=== PATIENT | female | born 1950 | race Caucasian/White ===

== ENCOUNTER 2020-07-21 10:09 | Outpatient (REF) | payer MEDICARE, SELFPAY ==
[2020-07-21 11:34] LABS: Hematocrit 45.2 % (37-47); Hemoglobin 14.5 g/dl (12.0-16.0); Mean Corpuscular HGB Conc 32.1 g/dl (31.0-35.0); Mean Corpuscular Hemoglobin 30.1 pg (27.0-33.0); Mean Corpuscular Volume 93.8 fL (80-98); Mean Platelet Volume 11.3 fL (9.4-12.3); Platelet Count 325 X10*3/uL (160-400); Red Blood Count 4.82 X10*6/uL (4.20-5.50); Red Cell Distribution Width 13.5 % (11.0-16.0); White Blood Count 6.8 X10*3/uL (4.8-10.8)
[2020-07-21 11:44] LABS: Glucose Urine UA NEG (NEG); Leukocyte Esterase Urine NEG (NEG); Nitrite Urine NEG (NEG); PH 5.5 (5.0-8.0); Specific Gravity - Urine <= 1.005 (1.005-1.025); Urine Blood NEG (NEG); Urine Ketones NEG (NEG); Urine Protein NEG (NEG-TRACE)
[2020-07-21 11:46] LABS: Appearance Urine CLEAR; Color Urine STRAW
[2020-07-21 11:55] LABS: Alanine Aminotransferase 10 U/L (0-31); Albumin Level 4.6 g/dL (3.5-5.0); Alkaline Phosphatase 71 U/L (39-117); Anion Gap 12 (12-20); Aspartate Amino Transferase 18 U/L (5-31); Bilirubin Total 0.4 mg/dL (0.0-1.0); Blood Urea Nitrogen 12 mg/dL (9-16); Calcium 9.3 mg/dL (8.4-10.2); Carbon Dioxide 28 mmol/L (22-29); Chloride 102 mmol/L (96-108); Cholesterol 374 mg/dL; Creatinine Clr Calc Pharmacy 62.4; Estimated Glomerular Filt Rate > 60; Glucose Fasting 94 mg/dL (60-99); HDL Cholesterol 72 mg/dL; LDL Cholesterol Calculated 276 mg/dl; Potassium 4.1 mmol/l (3.3-5.1); Sodium 138 mmol/L (135-145); Total Protein 7.3 g/dL (6.5-8.0); Triglycerides 134 mg/dL
[2020-07-21 11:58] LABS: RBC Urine 0-2 /HPF (0); WBC Urine 0-2 /HPF (0-4)
[2020-07-21 12:18] LABS: TSH reflex Free T4 25.35 mIU/mL (0.32-4.0)
[2020-07-21 13:07] LABS: Free T4 (Free Thyroxine) < 0.40 ng/dL (0.71-1.85)
== END 2020-07-21 10:10 | disposition home or self-care (01) ==
LOC: HO.HMGCLDS 10:09
PROVIDERS: PCP Internal Medicine; Visit Provider Internal Medicine
DX: Z00.00 Encounter for general adult medical examination without abnormal findings (principal); J44.9 Chronic obstructive pulmonary disease, unspecified; Z90.710 Acquired absence of both cervix and uterus
CPT/HCPCS: 36415; 80053; 80061; 81001; 84439; 84443; 85027

== ENCOUNTER 2020-07-28 11:01 | Outpatient (REF) | payer MEDICARE, SELFPAY ==
--- NOTE | 2020-07-28 11:07 | CT_ITS ---
EXAMINATION: CT CHEST WITHOUT CONTRAST CLINICAL INFORMATION: Nicotine dependence. COMPARISON: CT performed 09/27/2014. TECHNIQUE: Multidetector volumetric CT imaging of the chest was done. Axial MIP volume rendering provided. Sagittal and coronal reformatted images were obtained. This CT examination was performed using dose optimization techniques as appropriate, variously including the following: *Automated exposure control *Adjustment of mA and/or kV according to patient size (this includes techniques or standardized protocols for targeted exams where dose is matched to indication/reason for exam; i.e. extremities or head) *Use of iterative reconstruction technique DLP: 140 mGy-cm FINDINGS: LUNGS: The central airways are patent. There is moderate centrilobular emphysema. No consolidation. Minimal bibasilar atelectasis. No pulmonary nodules. No pneumothorax. MEDIASTINUM: Normal heart size. No pericardial effusion. Coronary artery calcifications. No mediastinal lymphadenopathy. PLEURA: There is no pleural effusion. No pleural mass or thickening. AXILLA: No lymphadenopathy. UPPER ABDOMEN: No acute abnormality seen. OSSEOUS STRUCTURES: No acute or suspicious osseous abnormality. Mild degenerative change. CT/CT chest wo con IMPRESSION: Moderate emphysema. No suspicious pulmonary nodules.
== END 2020-07-28 11:02 | disposition home or self-care (01) ==
LOC: HO.CT 11:01
PROVIDERS: PCP Internal Medicine; Visit Provider Internal Medicine
DX: Z12.2 Encounter for screening for malignant neoplasm of respiratory organs (principal); J44.9 Chronic obstructive pulmonary disease, unspecified; F17.200 Nicotine dependence, unspecified, uncomplicated
CPT/HCPCS: 71250

== ENCOUNTER 2020-09-29 08:45 | Outpatient (REF) | payer MEDICARE, SELFPAY ==
[2020-09-29 10:36] LABS: Cholesterol 322 mg/dL; HDL Cholesterol 56 mg/dL; LDL Cholesterol Calculated 238 mg/dl; Triglycerides 140 mg/dL
[2020-09-29 10:50] LABS: TSH reflex Free T4 13.58 uIU/mL (0.32-4.0)
[2020-09-29 12:23] LABS: Free T4 (Free Thyroxine) 0.74 ng/dL (0.71-1.85)
== END 2020-09-29 08:46 | disposition home or self-care (01) ==
LOC: HO.LAB 08:45
PROVIDERS: PCP Internal Medicine; Visit Provider Internal Medicine
DX: Z00.00 Encounter for general adult medical examination without abnormal findings (principal); E78.5 Hyperlipidemia, unspecified; E03.9 Hypothyroidism, unspecified; J44.9 Chronic obstructive pulmonary disease, unspecified; Z78.0 Asymptomatic menopausal state
CPT/HCPCS: 36415; 80061; 84439; 84443

== ENCOUNTER 2020-09-30 08:22 | Outpatient (REF) | payer MEDICARE, SELFPAY ==
--- NOTE | ~2020-09-30 | MM_ITS ---
EXAMINATION: MM SCREENING DIGITAL BREAST TOMOSYNTHESIS, BILATERAL CLINICAL INFORMATION: Screening. Asymptomatic. The lifetime risk of breast cancer based on the Tyrer-Cuzick Model is 6%. COMPARISON: Mammography: 11/16/2014 TECHNIQUE: Digital breast tomosynthesis is performed in both the craniocaudal and mediolateral oblique views along with computer-aided detection (CAD). Synthesized 2D images are generated from the tomosynthesis. FINDINGS: There are scattered areas of fibroglandular density (ACR BI-RADS breast composition Category b). The left breast is unremarkable. There is no interval mass or architectural abnormality. Neither breast shows abnormal calcifications. The axilla and skin contours are unremarkable. There are small intramammary nodes in the posterior upper outer right breast similar to 2015. There is a new nodule mid upper outer right breast with obscured margins measuring approximately 0.7 x 0.6 cm. Patient will be recalled for additional imaging. MM/MM tomosynthesis screening BI IMPRESSION: 1. Right: New nodule with obscured margins 0.7 cm mid upper outer quadrant. 2. Left: No mammographic evidence of malignancy. ASSESSMENT: BI-RADS 0: Incomplete - Need Additional Imaging Evaluation RECOMMENDATION: 1. Additional views of the right breast (3-D spot CC, 3-D spot ML). 2. Targeted ultrasound right breast. 3. Radiology department staff will contact the patient for additional imaging. This patient's information was entered into a reminder system with a target due date for their next mammogram.
--- NOTE | ~2020-09-30 | MM_ITS ---
EXAMINATION: BONE DENSITOMETRY CLINICAL INDICATION: Asymptomatic menopausal state. COMPARISON: This is the patient's baseline examination. TECHNIQUE: Using a [employer] DXA System (software version: 13.1) manufactured by [employer], dual-energy x-ray absorptiometry was performed of the lumbar spine and left hip. The images are of good technical quality. Summary results are attached. FINDINGS: AP SPINE L1-L4: BMD 0.811 g/cm2, Z-score -1.6, T-score -3.1, osteoporosis. LEFT FEMUR, NECK: BMD 0.774 g/cm2, Z-score -0.3, T-score -1.9, osteopenia. LEFT FEMUR, TOTAL: BMD 0.741 g/cm2, Z-score -0.7, T-score -2.1, osteopenia. IDENTIFIED RISK FACTORS: Menopause, hysterectomy, bilateral oophorectomy, tobacco use (current smoker). HISTORY OF FRACTURE: None listed. MEDICATIONS: None listed. MM/XR DEXA axial skeleton IMPRESSION: 1. DIAGNOSIS: Osteoporosis based on the lowest T-score value of -3.1 in the lumbar spine applying World Health Organization criteria. 2. 10-YEAR FRACTURE RISK PREDICTION, FRAX: Major osteoporotic fracture (clinical spine, forearm, hip or shoulder) 12.9%. Hip fracture 4.1%. 3. Treatment Recommendations: NOF guidelines recommend consideration for treatment in postmenopausal women and men age 50 and older presenting with the following: -A hip or vertebral (clinical or morphometric) fracture. -T-score less than or equal to -2.5 at the femoral neck or spine after appropriate evaluation to exclude secondary causes. -Low bone mass at the hip or spine and a 10-year fracture probability by FRAX of greater than or equal to 3% for hip fracture or greater than or equal to 20% for major osteoporotic fracture based on the [place] adapted WHO algorithm. 4. Other Recommendations: All treatment decisions require clinical judgment and consideration of individual patient factors, including patient preferences, comorbidities, previous drug use, risk factors not captured in the FRAX model (e.g. frailty, falls, vitamin D deficiency, increased bone turnover, interval significant decline in bone density) and possible under or overestimation of fracture risk by FRAX. Additional medical evaluation for secondary cause of low bone mineral density may be appropriate. FUTURE SCAN RECOMMENDATION: People with diagnosed cases of osteoporosis or at high risk for fracture should have regular bone mineral density tests. For patients eligible for Medicare, routine testing is allowed once every 2 years. The testing frequency can be increased to one year for patients who have rapidly progressing disease, those who are receiving or discontinuing medical therapy to restore bone mass, or have additional risk factors.
== END 2020-09-30 08:23 | disposition home or self-care (01) ==
LOC: HO.MAMMO 08:22
PROVIDERS: PCP Internal Medicine; Visit Provider Internal Medicine
DX: Z13.820 Encounter for screening for osteoporosis (principal); Z78.0 Asymptomatic menopausal state; Z12.31 Encounter for screening mammogram for malignant neoplasm of breast
CPT/HCPCS: 77063; 77067; 77080

== ENCOUNTER 2020-10-24 14:12 | Outpatient (REF) | payer MEDICARE, SELFPAY ==
--- NOTE | ~2020-10-24 | MM_ITS ---
EXAMINATION: MM DIAGNOSTIC DIGITAL BREAST TOMOSYNTHESIS, RIGHT US DIAGNOSTIC ULTRASOUND BREAST, RIGHT CLINICAL INFORMATION: Recall from screening for new nodule with obscured margins measuring outer right breast. TC score is 6%. COMPARISON: Mammography: 09/30/2020, 11/16/2014 TECHNIQUE: Digital breast tomosynthesis is performed. 2D images are generated from the tomosynthesis. The following views are obtained: 3-D spot CC, 3-D ML. Ultrasound right breast is targeted to the outer quadrant. Grayscale imaging and color Doppler are performed without and with harmonics. FINDINGS: There are scattered areas of fibroglandular density (ACR BI-RADS breast composition Category b). The additional views again show a equal attenuation oval nodule mid 9:30 o'clock position. Margins are somewhat ill-defined. There is no definite spiculation. No associated calcification. Ultrasound demonstrates a hypoechoic nodule. Margins are incompletely defined. There is mild increased through-transmission of sound. No associated peripheral or internal color flow. Results are discussed with the patient at time of visit. Although finding may represent a benign entity such as complicated cyst with apocrine metaplasia, ultrasound-guided core sampling is recommended to confirm benignity. Results and recommendation are called to office ([place]) for Dr. Garcia on 10/24/2020. MM/MM tomosynthesis added views R IMPRESSION: New nodule mid 9:30 o'clock right breast under 1 cm. Margins are incompletely defined. Low-level internal echoes. ASSESSMENT: BI-RADS 4: Suspicious (subcategory 4A: Low suspicion for malignancy) RECOMMENDATION: Ultrasound-guided core biopsy right breast nodule. This patient's information was entered into a reminder system with a target due date for their next mammogram.
== END 2020-10-24 14:13 | disposition home or self-care (01) ==
LOC: HO.MAMMO 14:12
PROVIDERS: Visit Provider Internal Medicine
DX: N63.11 Unspecified lump in the right breast, upper outer quadrant (principal)
CPT/HCPCS: 76642; 77061; 77065

== ENCOUNTER 2020-10-28 09:38 | Outpatient (REF) | payer MEDICARE, SELFPAY ==
--- NOTE | ~2020-10-28 | US_ITS ---
EXAMINATION: ULTRASOUND GUIDED CORE BIOPSY BREAST, RIGHT POST PROCEDURE DIGITAL MAMMOGRAM, RIGHT CLINICAL INFORMATION: Hypoechoic nodule mid 9:30 o'clock right breast, possibly complicated cyst. COMPARISON: Mammography 09/30/2020, 10/24/2020; targeted right breast ultrasound 10/24/2020. FINDINGS: Proper informed consent is obtained from the patient after discussion of the procedure, potential risks and complications, and alternatives. Patient was given an opportunity for questions. The patient appeared to understand. The patient consented to the procedure and signed the consent form. GUIDANCE: Ultrasound-guided; aseptic technique. LESION: Hypoechoic nodule 9:30 o'clock position mid depth approximately 3 cm from nipple measuring under 1 cm. APPROACH: Lateral medial. ANESTHESIA: 15 mL 1% lidocaine. DERMATOTOMY: Single skin dann dermatotomy performed. NEEDLE: 14-gauge Achieve core biopsy device with 13.5-gauge co-axial guide needle. CORES: 5. CLIP: HydroMARK; shape: open coil. POST PROCEDURE UNILATERAL DIGITAL MAMMOGRAM: The post biopsy mammogram is performed in separate room using separate digital mammography equipment from the biopsy procedure. CC and ML views are obtained. There are scattered areas of fibroglandular density (breast composition category: b). The clip marker is in position and corresponds to the nodule on recent mammography. Ultrasound lesion and mammography lesion are therefore concordant. No postprocedure hematoma demonstrated. The patient tolerated the procedure well. No immediate complications. Home instructions reviewed with the patient. Final pathology results are pending. US/US breast ndl core biopsy RT IMPRESSION: 1. Status post ultrasound-guided core biopsy right breast. 2. Clip placed: HydroMARK; shape: open coil. 3. Pathology pending. An addendum report will be issued.
--- NOTE | ~2020-10-28 | MM_ITS ---
Postprocedure right mammography is described in single combined report along with the ultrasound-guided core biopsy right breast under accession # [id number].
== END 2020-10-28 09:39 | disposition home or self-care (01) ==
LOC: HO.MAMMO 09:38
PROVIDERS: Visit Provider Internal Medicine
DX: N63.11 Unspecified lump in the right breast, upper outer quadrant (principal)
CPT/HCPCS: 19083; 77065; 88305; 88341; 88342

== ENCOUNTER 2021-03-24 13:07 | Outpatient (REF) | payer MEDICARE, SELFPAY ==
--- NOTE | ~2021-03-24 | MM_ITS ---
EXAMINATION: MM DIAGNOSTIC DIGITAL BREAST TOMOSYNTHESIS, RIGHT CLINICAL INFORMATION: Six-month follow-up right breast benign biopsy The lifetime risk of breast cancer based on the Tyrer-Cuzick Model is 6.2%. COMPARISON: Mammography: October 28, 2020 and studies dating back to November 16, 2014 TECHNIQUE: Digital breast tomosynthesis is performed in both the craniocaudal and mediolateral oblique views along with computer-aided detection (CAD). Synthesized 2D images are generated from the tomosynthesis. FINDINGS: There are scattered areas of fibroglandular density (ACR BI-RADS breast composition Category b). There are no significant masses, abnormal calcifications, or other abnormalities. Results are provided to the patient at time of visit by the technologist. MM/MM tomosynthesis diagnostic RT IMPRESSION: There are no significant changes from prior study. ASSESSMENT: BI-RADS 1: Negative RECOMMENDATION: Routine annual mammography screening, due in 6 months. This patient's information was entered into a reminder system with a target due date for their next mammogram.
== END 2021-03-24 13:08 | disposition home or self-care (01) ==
LOC: HO.MAMMO 13:07
PROVIDERS: PCP Internal Medicine; Visit Provider Internal Medicine
DX: N63.11 Unspecified lump in the right breast, upper outer quadrant (principal); Z98.890 Other specified postprocedural states
CPT/HCPCS: 77061; 77065

== ENCOUNTER 2021-05-07 09:16 | Emergency (ER) | payer MEDICARE, SELFPAY ==
--- NOTE | ~2021-05-07 | US_ITS ---
EXAMINATION: US VENOUS ULTRASOUND WITH DOPPLER LOWER EXTREMITY, LEFT CLINICAL INFORMATION: Left leg pain and swelling COMPARISON: None TECHNIQUE: Ultrasound of the deep veins is performed from the hip to the calf with compression sonography and color and pulse Doppler assessment. Spectral analysis with color-flow imaging is performed. FINDINGS: There is normal venous compression and respiratory variation and augmented flow. The visualized common femoral vein, superficial femoral vein, profunda femoral vein, popliteal vein, and the trifurcation region shows no evidence of deep venous thrombosis. No popliteal fossa aneurysm. No popliteal fossa cyst. US/US venous duplex LE LT IMPRESSION: No acute DVT demonstrated in the left lower extremity.
[2021-05-07 09:38] VITALS: BP 183/95; PULSE 72; RESP 18; TEMP 36.3; O2SAT 98; BMI 25.8
--- NOTE | 2021-05-07 09:56 | ED.LOWEXIN ---
HPI - Extremity Injury (Lower) General Chief Complaint: Extremity Injury, Lower Stated Complaint: lt leg injury Time Seen by Provider: 05/07/21 09:45 Source: patient Mode of arrival: ambulatory Limitations: no limitations History of Present Illness complaint: leg injury (left ) Onset (ago): day(s) (Saturday - 6 days ago) Type of Injury: other (avulsed her left leg anterior haro on car door but reports it was small and healed relatively well with topical treatments - did not seek care or need care) Place: home Severity: mild Relieving factors: nothing Exacerbating factors: nothing Context: direct blow Associated symptoms: other (yesterday the leg became more red and warm and the entire haro became reddened with small petechia noted around redness along with LLE swelling) Other symptoms: none (no sysetmic symptoms) Treatments prior to arrival: other (was using topical treatments) Related Data Previous Rx's Medication Instructions Recorded levothyroxine 50 mcg tablet 50 mcg PO DAILY #90 tab 04/05/21 cephalexin 500 mg capsule 500 mg PO TID 7 Days #21 cap 05/07/21 clotrimazole-betamethasone 1 1 appl TOPICAL BID 7 Days #45 g 05/07/21 %-0.05 % topical cream Allergies Allergy/AdvReac Type Severity Reaction Status Date / Time No Known Allergies Allergy Unknown Verified 05/07/21 09:37 [No Known Allergies*] Review of Systems Review of Systems: Constitutional : No Fever, No Chills ENT/Mouth : No sore throat, No Rhinorrhea Eyes: No Eye Pain, No Swelling, No Redness Cardiovascular : No Chest Pain, No SOB, pos LE swelling Respiratory : No Cough, No Sputum Gastrointestinal : No Nausea, No Vomiting, No Diarrhea, No abdominal Pain Genitourinary : No Dysuria, No Hematuria Musculoskeletal : No joint pain, No Myalgias, No Joint Swelling Skin : pos Skin Lesions, positive skin rash Neuro : No Weakness, No Numbness, No Headache Psych : No Anxiety, No Depression Heme/Lymph: No Bruising, No Bleeding,No Lymphadenopathy All other systems reviewed and are negative [facility] Past Medical History Attestation statement: The following information was validated with the patient. Medical History Annual physical exam Breast mass COPD (chronic obstructive pulmonary disease) HTN (hypertension) Hyperlipidemia Hypothyroidism Pneumonia Postmenopausal PVD (peripheral vascular disease) Skin growth Tobacco dependence Surgical History H/O: hysterectomy Family History Family History (Updated 07/21/20 @ 09:41 by Arcelia Bonilla RN) Mother Heart problem Father Adenocarcinoma Sister Myocardial infarct Social History Social History (Updated 05/07/21 @ 09:56 by Dora Jones DO) Household Members Other:: Lives with sister, never , walks daily Alcohol intake: never Patient Tobacco Use Status: Never used Tobacco Advance Directives: No Physical Exam Vital Signs: Vital Signs: Last Vital Signs Temp 97.4 F 05/07/21 09:38 Pulse 72 05/07/21 09:38 Resp 18 05/07/21 09:38 BP 183/95 H 05/07/21 09:38 Pulse Ox 98 05/07/21 09:38 Body Mass Index 25.8 Appearance: Alert. Oriented X3. No acute distress. Eyes: Pupils equal, round and reactive to light. ENT: Pharynx normal. Neck: Normal inspection. Neck supple. CVS: Normal heart rate and rhythm. Pulses normal. Respiratory: No respiratory distress. Breath sounds normal. Abdomen: Soft and nontender. Skin: Skin warm and dry. Extremities: LLE mild nonpitting edema and some engorged veins mid calf to ankle - anterior haro large shiny dark red area that is warm to the touch as well as surrounding areas of petechia like lesions - distally NV intact Neuro: Oriented X 3. No motor deficit. No sensory deficit. MDM - Extremity Injury (Lower) MDM Narrative Medical decision making narrative: 70 yo female with HTN, HLD, hypothyroidism who suffered a local skin avulsion to LLE that she was caring for at home since Saturday - she is a retired RN. Yesterday she noted her leg appeared more swollen and the area is more red/warm and has a rash. At this time likely a local cellulitis but she needs labs, infl markers and DVT study. She denies any systemic symptoms such as fever/n/v. She has not had any prior bouts of cellulitis in the past. The skin may also benefit from a local fungal/steroid cream as well as oral antibiotics given the appearance. Lab Data Result diagrams: 05/07/21 10:02 11/07/21 10:02 Labs: Lab Results 05/07/21 05/07/21 05/07/21 Range/Units 10:02 10:02 10:02 WBC 7.3 (4.8-10.8) X10*3/uL RBC 4.49 (4.20-5.50) X10*6/uL Hgb 13.7 (12.0-16.0) g/dl Hct 41.7 (37.0-47.0) % MCV 92.9 (80.0-98.0) fL MCH 30.5 (27.0-33.0) pg MCHC 32.9 (31.0-35.0) g/dl RDW 13.3 (11.0-16.0) % Plt Count 311 (160-400) X10*3/uL MPV 10.6 (9.4-12.3) fL Immature Gran % (Auto) 0.1 (0.0-0.4) % Neut % (Auto) 62.8 (45-73) % Lymph % (Auto) 23.1 (20-40) % [place] % (Auto) 9.5 (2-11) % Eos % (Auto) 2.7 (0-4) % Baso % (Auto) 1.8 (0-2) % Lymph # (Auto) 1.7 (1.2-4.9) X10*3/uL [place] # (Auto) 0.7 (0.1-1.2) X10*3/uL Eos # (Auto) 0.2 (0.0-0.4) X10*3/uL Baso # (Auto) 0.1 (0.0-0.2) X10*3/uL Abs Immat Gran (auto) 0.01 (0.00-0.03) X10*3/uL Absolute Neuts (auto) 4.6 (2.0-8.3) x10*3/uL Absolute Nucleated RBC 0.000 (0.0-0.012) X10*3/uL Nucleated RBC % (auto) 0.0 (0.0-0.2) /100WBC PT 10.8 (9.9-13.0) SEC INR 1.0 (0.9-1.1) APTT 38.6 H (24.1-38.0) SEC Sodium 139 (135-145) mmol/L Potassium 4.0 (3.3-5.1) mmol/L Chloride 104 (96-108) mmol/L Carbon Dioxide 26 (22-29) mmol/L Anion Gap 13 (12-20) BUN 9 (9-16) mg/dL Creatinine 0.85 (0.5-1.4) mg/dL Estim Creat Clear Calc 60.9 Estimated GFR > 60 Random Glucose 111 (60-115) mg/dL Calcium 9.1 (8.4-10.2) mg/dL C-Reactive Protein 0.37 (< or = 0.50) mg/dL Discharge Plan Discharge Clinical Impression: Cellulitis, Fungal infection of skin Patient Disposition: Home, Self-Care Instructions: Cellulitis (ED) Additional Instructions: return to ED for any worsening symptoms or concerns Prescriptions: New clotrimazole-betamethasone 1-0.05 % cream 1 appl topical BID 7 Days Qty: 45 RF: 0 cephalexin 500 mg capsule 500 mg PO TID 7 Days Qty: 21 RF: 0 No Action levothyroxine 50 mcg tablet 50 mcg PO DAILY Qty: 90 RF: 0 Referrals: Marce Garcia MD [Primary Care Provider] - 3 days (wound check)
[2021-05-07 10:06] LABS: MANUAL DIFF FLAG NO
[2021-05-07 10:08] LABS: Basophils Absolute Auto 0.1 X10*3/uL (0.0-0.2); Basophils Percent Auto 1.8 % (0-2); Eosinophils Absolute Auto 0.2 X10*3/uL (0.0-0.4); Eosinophils Percent Auto 2.7 % (0-4); Hematocrit 41.7 % (37.0-47.0); Hemoglobin 13.7 g/dl (12.0-16.0); Imm Gran Abs Auto 0.01 X10*3/uL (0.00-0.03); Imm Gran Pct Auto 0.1 % (0.0-0.4); Lymphocytes Absolute Auto 1.7 X10*3/uL (1.2-4.9); Lymphocytes Percent Auto 23.1 % (20-40); Mean Corpuscular HGB Conc 32.9 g/dl (31.0-35.0); Mean Corpuscular Hemoglobin 30.5 pg (27.0-33.0); Mean Corpuscular Volume 92.9 fL (80.0-98.0); Mean Platelet Volume 10.6 fL (9.4-12.3); Monocytes Absolute Auto 0.7 X10*3/uL (0.1-1.2); Monocytes Percent Auto 9.5 % (2-11); Neutrophils Absolute Auto 4.6 x10*3/uL (2.0-8.3); Neutrophils Percent Auto 62.8 % (45-73); Platelet Count 311 X10*3/uL (160-400); Red Blood Count 4.49 X10*6/uL (4.20-5.50); Red Cell Distribution Width 13.3 % (11.0-16.0); White Blood Count 7.3 X10*3/uL (4.8-10.8)
[2021-05-07 10:16] LABS: Prothrombin Time 10.8 SEC (9.9-13.0)
[2021-05-07 10:18] LABS: Partial Thromboplastin Time 38.6 SEC (24.1-38.0)
[2021-05-07 10:23] LABS: Anion Gap 13 (12-20); Blood Urea Nitrogen 9 mg/dL (9-16); C Reactive Protein 0.37 mg/dL (< or = 0.50); Calcium 9.1 mg/dL (8.4-10.2); Carbon Dioxide 26 mmol/L (22-29); Chloride 104 mmol/L (96-108); Creatinine Clr Calc Pharmacy 60.9; Estimated Glomerular Filt Rate > 60; Glucose Random 111 mg/dL (60-115); Sodium 139 mmol/L (135-145)
[2021-05-07] MEDS: Diphth,Pertus(ACell),Tet Adult 0.5 ML SYRINGE IM (11:05)
[2021-05-07 11:13] LABS: Erythrocyte Sedimentation Rate 12 MM/HR (0-20)
== END 2021-05-07 11:12 | disposition home or self-care (01) ==
PROVIDERS: Emergency Provider Emergency Medicine; PCP Internal Medicine
DX: L03.116 Cellulitis of left lower limb (principal); S81.802A Unspecified open wound, left lower leg, initial encounter; B36.9 Superficial mycosis, unspecified; M79.605 Pain in left leg; I10 Essential (primary) hypertension; E78.5 Hyperlipidemia, unspecified; F17.200 Nicotine dependence, unspecified, uncomplicated; W45.8XXA Other foreign body or object entering through skin, initial encounter; Y93.9 Activity, unspecified; Y92.810 Car as the place of occurrence of the external cause; Y99.9 Unspecified external cause status
CPT/HCPCS: 36415; 80048; 85025; 85610; 85652; 85730; 86140; 90471; 90715; 93971; 99283; 99284

== ENCOUNTER 2021-06-29 00:37 | Emergency (ER) | payer MEDICARE, SELFPAY ==
--- NOTE | ~2021-06-29 | CT_ITS ---
EXAMINATION: NONCONTRAST HEAD CT NONCONTRAST CERVICAL SPINE CT INDICATION INFORMATION: Fall COMPARISON: None TECHNIQUE: Separate noncontrast CT examinations of the head and cervical spine were performed. Coronal head CT images and coronal and sagittal cervical spine images were created at the technologist workstation. DLP: 901 mGy-cm DOSE LOWERING TECHNIQUES: This CT examination was performed using dose optimization techniques as appropriate, variously including the following: - Automated exposure control - Adjustment of mA and/or kV according to patient size (this includes techniques or standardized protocols for targeted exams were dose is matched to indication/reason for exam; i.e. extremities or head) - Use of iterative reconstruction technique FINDINGS: Head: There is intraparenchymal hemorrhage which appears centered in the left basal ganglia measuring up to approximately 3 cm in diameter on image 72/146, with extension into the left lateral ventricle. Small amount of hemorrhage is also present in the third ventricle. There is mild localized mass effect with approximately 3 mm rightward midline shift. There is no evidence of acute territorial infarction. Goncalves to white matter differentiation is well preserved. No extra-axial fluid collections are identified. The ventricles are normal in size. There is mild periventricular white matter hypoattenuation consistent with chronic small vessel ischemic disease. The osseous structures and soft tissues are normal. The mastoid air cells and visualized portions of the paranasal sinuses are well-aerated. Cervical spine: There is anatomic alignment of the vertebral bodies and posterior elements. Vertebral body heights are maintained. There is mild disc space narrowing in the mid cervical spine with associated endplate osteophytes. There is mild bilateral facet arthropathy. No evidence of acute fracture. No prevertebral soft tissue swelling. Visualized portions of the lung apices demonstrate mild emphysema. The thyroid gland is unremarkable. CT/CT cervical spine wo con IMPRESSION: 1. Intraparenchymal hemorrhage which appears centered in the left basal ganglia measuring approximately 3 cm in diameter, with extension into the adjacent left lateral ventricle. Mild localized mass effect and slight rightward midline shift. 2. No acute findings identified in the cervical spine. This critical result was discussed with Dr. Lora on 06/29/2021 2:36 AM, and it was ascertained that the content and urgency of the report was understood at the time of direct communication.
--- NOTE | ~2021-06-29 | CT_ITS ---
EXAMINATION: NONCONTRAST HEAD CT NONCONTRAST CERVICAL SPINE CT INDICATION INFORMATION: Fall COMPARISON: None TECHNIQUE: Separate noncontrast CT examinations of the head and cervical spine were performed. Coronal head CT images and coronal and sagittal cervical spine images were created at the technologist workstation. DLP: 901 mGy-cm DOSE LOWERING TECHNIQUES: This CT examination was performed using dose optimization techniques as appropriate, variously including the following: - Automated exposure control - Adjustment of mA and/or kV according to patient size (this includes techniques or standardized protocols for targeted exams were dose is matched to indication/reason for exam; i.e. extremities or head) - Use of iterative reconstruction technique FINDINGS: Head: There is intraparenchymal hemorrhage which appears centered in the left basal ganglia measuring up to approximately 3 cm in diameter on image 72/146, with extension into the left lateral ventricle. Small amount of hemorrhage is also present in the third ventricle. There is mild localized mass effect with approximately 3 mm rightward midline shift. There is no evidence of acute territorial infarction. Goncalves to white matter differentiation is well preserved. No extra-axial fluid collections are identified. The ventricles are normal in size. There is mild periventricular white matter hypoattenuation consistent with chronic small vessel ischemic disease. The osseous structures and soft tissues are normal. The mastoid air cells and visualized portions of the paranasal sinuses are well-aerated. Cervical spine: There is anatomic alignment of the vertebral bodies and posterior elements. Vertebral body heights are maintained. There is mild disc space narrowing in the mid cervical spine with associated endplate osteophytes. There is mild bilateral facet arthropathy. No evidence of acute fracture. No prevertebral soft tissue swelling. Visualized portions of the lung apices demonstrate mild emphysema. The thyroid gland is unremarkable. CT/CT head/brain wo con IMPRESSION: 1. Intraparenchymal hemorrhage which appears centered in the left basal ganglia measuring approximately 3 cm in diameter, with extension into the adjacent left lateral ventricle. Mild localized mass effect and slight rightward midline shift. 2. No acute findings identified in the cervical spine. This critical result was discussed with Dr. oLra on 06/29/2021 2:36 AM, and it was ascertained that the content and urgency of the report was understood at the time of direct communication.
[2021-06-29 00:53] VITALS: BP 141/68; BP 150/76; PULSE 67; PULSE 72; RESP 15; TEMP 36.8; O2SAT 97; BMI 27.4
[2021-06-29 02:21] VITALS: BP 142/77; PULSE 62; RESP 21; O2SAT 96
--- NOTE | 2021-06-29 02:26 | ED.FALL ---
HPI - Fall General Chief Complaint: Fall Stated Complaint: FALL AND CONFUSION Time Seen by Provider: 06/29/21 01:20 Source: EMS History of Present Illness HPI Narrative: This is a 70-year-old female who is a poor historian due to mental status. She had an unwitnessed fall and hit the side of her head. The patient denies any headache or neck pain. She denies any nausea vomiting. She has been noted to be confused. She states that the year is [birth year] Related Data Previous Rx's Medication Instructions Recorded levothyroxine 50 mcg tablet 50 mcg PO DAILY #90 tab 04/05/21 cephalexin 500 mg capsule 500 mg PO TID 7 Days #21 cap 05/07/21 clotrimazole-betamethasone 1 1 appl TOPICAL BID 7 Days #45 g 05/07/21 %-0.05 % topical cream Allergies Allergy/AdvReac Type Severity Reaction Status Date / Time No Known Allergies Allergy Unknown Verified 05/07/21 09:37 [No Known Allergies*] Review of Systems Review of Systems: Yes Unobtainable due to mental condition Neurologic: Denies Sensory deficit (Neuro) [facility] Past Medical History Medical History Annual physical exam Breast mass COPD (chronic obstructive pulmonary disease) HTN (hypertension) Hyperlipidemia Hypothyroidism Pneumonia Postmenopausal PVD (peripheral vascular disease) Skin growth Tobacco dependence Surgical History H/O: hysterectomy Family History Family History (Updated 07/21/20 @ 09:41 by Arcelia Bonilla RN) Mother Heart problem Father Adenocarcinoma Sister Myocardial infarct Social History Social History (Updated 05/07/21 @ 09:56 by Dora Jones DO) Household Members Other:: Lives with sister, never , walks daily Alcohol intake: unknown Patient Tobacco Use Status: Current everyday Tobacco user Use of substances other than those prescribed or required for medical reasons: No Advance Directives: No Advance Directives Information Provided: Yes Physical Exam Vital Signs: Vital Signs: Last Vital Signs Temp 98.2 F 06/29/21 00:53 Pulse 62 06/29/21 02:21 Resp 21 H 06/29/21 02:21 BP 142/77 H 06/29/21 02:21 Pulse Ox 96 06/29/21 02:21 BMI result Body Mass Index 27.4 Const: General: cooperative, no acute distress and alert Orientation/consciousness: oriented to person and No oriented to time (States that year is [birth year]) HENMT: Head: Yes normal to inspection Eyes: General: appearance normal, both eyes and all related structures Eyelids: Yes eyelids normal Conjunctivae: conjunctivae normal Pupils: Equal, round and reactive pupils present Neck: Neck: Yes normal visual inspection and Yes supple Chest: Chest palpation & inspection: normal inspection of the chest Resp: Effort & Inspection: normal respiratory effort Auscultation: clear to auscultation bilaterally Cardio: Rate: regular rate Rhythm: regular rhythm Heart sounds: S1 normal heart sound present, S2 normal heart sound present, no gallops, no murmurs and no rubs GI: Palpation (GI): Soft to palpation, nontender and Other GI palpation findings present (Non-distended) Auscultation: normal bowel sounds Skin: General skin exam: no rashes or lesions noted Trauma: lacerations and/or abrasions noted (Old appearing skin tear right anterior leg with mild localized erythema) Neuro: General: oriented to person, No oriented to time (States that year is [birth year]), no focal motor deficits and CN's II-XI intact bilaterally Cranial nerves: Yes Equal, round and reactive pupils present Cognition (Neuro): normal cognition Motor exam (neuro): 5/5 motor strength present throughout Sensory Exam: No Sensory deficit (Neuro) Extrem: General: Yes normal to inspection and Yes no pedal edema Psych: Appearance: grossly normal Affect: normal affect MDM - Fall MDM Narrative Medical decision making narrative: Case discussed with Dr. Flores of Neurosurgery at [facility]. The patient is acceptedfor transfer to the emergency department as a level 2. Patient's blood pressure is mildly elevated but not at a level which requires intervention. Heart rate is borderline bradycardic. Patient is alert but confused, has no complaints of pain. Patient had an unwitnessed fall at home, and her partner reportedly heard her fall. Patient states she does with her brother. Critical care time for this life-threatening illness exclusive of all other billable procedures was approximately 35 minutes including initial evaluation of the patient, ordering tests, x-ray interpretation, EKG interpretation, medical consultation, documentation, reevaluation. Lab Data Attestation: I reviewed the patient's lab results. Result diagrams: 06/29/21 02:26 06/29/21 02:27 Labs: Lab Results 06/29/21 06/29/21 06/29/21 Range/Units 02:24 02:26 02:27 WBC 7.8 (4.8-10.8) X10*3/uL RBC 4.57 (4.20-5.50) X10*6/uL Hgb 13.9 (12.0-16.0) g/dl Hct 42.3 (37.0-47.0) % MCV 92.6 (80.0-98.0) fL MCH 30.4 (27.0-33.0) pg MCHC 32.9 (31.0-35.0) g/dl RDW 13.3 (11.0-16.0) % Plt Count 318 (160-400) X10*3/uL MPV 10.3 (9.4-12.3) fL Immature Gran % (Auto) 0.3 (0.0-0.4) % Neut % (Auto) 69.7 (45-73) % Lymph % (Auto) 17.6 L (20-40) % Armstrong % (Auto) 8.2 (2-11) % Eos % (Auto) 2.8 (0-4) % Baso % (Auto) 1.4 (0-2) % Lymph # (Auto) 1.4 (1.2-4.9) X10*3/uL Armstrong # (Auto) 0.6 (0.1-1.2) X10*3/uL Eos # (Auto) 0.2 (0.0-0.4) X10*3/uL Baso # (Auto) 0.1 (0.0-0.2) X10*3/uL Abs Immat Gran (auto) 0.02 (0.00-0.03) X10*3/uL Absolute Neuts (auto) 5.4 (2.0-8.3) x10*3/uL Absolute Nucleated RBC 0.000 (0.0-0.012) X10*3/uL Nucleated RBC % (auto) 0.0 (0.0-0.2) /100WBC PT 11.0 (9.9-13.0) SEC INR 1.0 (0.9-1.1) APTT 33.4 (24.1-38.0) SEC Sodium (135-145) mmol/L Potassium (3.3-5.1) mmol/L Chloride (96-108) mmol/L Carbon Dioxide (22-29) mmol/L Anion Gap (12-20) BUN (9-16) mg/dL Creatinine (0.5-1.4) mg/dL Estim Creat Clear Calc Estimated GFR Random Glucose (60-115) mg/dL Calcium (8.4-10.2) mg/dL Total Bilirubin (0.0-1.0) mg/dL AST (5-31) U/L ALT (0-31) U/L Alkaline Phosphatase (39-117) U/L Troponin I High Sens (<3.5-17.0) ng/L Total Protein (6.5-8.0) g/dL Albumin (3.5-5.0) g/dL COVID-19 (DONA) Negative (Negative) COVID-19 Clin Com See Note 06/29/21 06/29/21 Range/Units 02:27 02:27 WBC (4.8-10.8) X10*3/uL RBC (4.20-5.50) X10*6/uL Hgb (12.0-16.0) g/dl Hct (37.0-47.0) % MCV (80.0-98.0) fL MCH (27.0-33.0) pg MCHC (31.0-35.0) g/dl RDW (11.0-16.0) % Plt Count (160-400) X10*3/uL MPV (9.4-12.3) fL Immature Gran % (Auto) (0.0-0.4) % Neut % (Auto) (45-73) % Lymph % (Auto) (20-40) % Armstrong % (Auto) (2-11) % Eos % (Auto) (0-4) % Baso % (Auto) (0-2) % Lymph # (Auto) (1.2-4.9) X10*3/uL Armstrong # (Auto) (0.1-1.2) X10*3/uL Eos # (Auto) (0.0-0.4) X10*3/uL Baso # (Auto) (0.0-0.2) X10*3/uL Abs Immat Gran (auto) (0.00-0.03) X10*3/uL Absolute Neuts (auto) (2.0-8.3) x10*3/uL Absolute Nucleated RBC (0.0-0.012) X10*3/uL Nucleated RBC % (auto) (0.0-0.2) /100WBC PT (9.9-13.0) SEC INR (0.9-1.1) APTT (24.1-38.0) SEC Sodium 141 (135-145) mmol/L Potassium 4.1 (3.3-5.1) mmol/L Chloride 107 (96-108) mmol/L Carbon Dioxide 23 (22-29) mmol/L Anion Gap 15 (12-20) BUN 11 (9-16) mg/dL Creatinine 0.89 (0.5-1.4) mg/dL Estim Creat Clear Calc 59.8 Estimated GFR > 60 Random Glucose 115 (60-115) mg/dL Calcium 9.2 (8.4-10.2) mg/dL Total Bilirubin 0.3 (0.0-1.0) mg/dL AST 17 (5-31) U/L ALT 14 (0-31) U/L Alkaline Phosphatase 68 (39-117) U/L Troponin I High Sens 6.5 (<3.5-17.0) ng/L Total Protein 6.7 (6.5-8.0) g/dL Albumin 4.2 (3.5-5.0) g/dL COVID-19 (DONA) (Negative) COVID-19 Clin Com Imaging Data CT scan - head: Radiologist's impression: 3 cm intraparenchymal basal ganglia hemorrhage with bleeding into the lateral ventricle, minimal midline shift. No other findings to suggest head trauma ECG Data Attestation: I personally reviewed and interpreted this ECG as follows: ECG interpretation date: 06/29/21 ECG interpretation time: 03:07 Interpretation: Sinus bradycardia with a rate of 59. PACs present. Nonspecific T-wave changes. Low voltage in limb leads Discharge Plan Discharge Clinical Impression: Intraparenchymal hemorrhage of brain Prescriptions: No Action levothyroxine 50 mcg tablet 50 mcg PO DAILY Qty: 90 RF: 0 clotrimazole-betamethasone 1-0.05 % cream 1 appl topical BID 7 Days Qty: 45 RF: 0 cephalexin 500 mg capsule 500 mg PO TID 7 Days Qty: 21 RF: 0
--- NOTE | 2021-06-29 02:29 | ECG_ITS ---
Test Reason : weakness Blood Pressure : / mmHG Vent. Rate : 059 BPM Atrial Rate : 059 BPM P-R Int : 128 ms QRS Dur : 082 ms QT Int : 468 ms P-R-T Axes : 055 -05 031 degrees QTc Int : 463 ms Sinus bradycardia with Premature atrial complexes Nonspecific T wave abnormality Abnormal ECG When compared with ECG of 02-AUG-2014 16:27, Premature atrial complexes are now Present Nonspecific T wave abnormality now evident in Inferior leads Referred By: Seth Lora Electronically Signed By:Carloz Moise
[2021-06-29 02:30] LABS: MANUAL DIFF FLAG NO
[2021-06-29 02:32] LABS: Basophils Absolute Auto 0.1 X10*3/uL (0.0-0.2); Basophils Percent Auto 1.4 % (0-2); Eosinophils Absolute Auto 0.2 X10*3/uL (0.0-0.4); Eosinophils Percent Auto 2.8 % (0-4); Hematocrit 42.3 % (37.0-47.0); Hemoglobin 13.9 g/dl (12.0-16.0); Imm Gran Abs Auto 0.02 X10*3/uL (0.00-0.03); Imm Gran Pct Auto 0.3 % (0.0-0.4); Lymphocytes Absolute Auto 1.4 X10*3/uL (1.2-4.9); Lymphocytes Percent Auto 17.6 % (20-40); Mean Corpuscular HGB Conc 32.9 g/dl (31.0-35.0); Mean Corpuscular Hemoglobin 30.4 pg (27.0-33.0); Mean Corpuscular Volume 92.6 fL (80.0-98.0); Mean Platelet Volume 10.3 fL (9.4-12.3); Monocytes Absolute Auto 0.6 X10*3/uL (0.1-1.2); Monocytes Percent Auto 8.2 % (2-11); Neutrophils Absolute Auto 5.4 x10*3/uL (2.0-8.3); Neutrophils Percent Auto 69.7 % (45-73); Platelet Count 318 X10*3/uL (160-400); Red Blood Count 4.57 X10*6/uL (4.20-5.50); Red Cell Distribution Width 13.3 % (11.0-16.0); White Blood Count 7.8 X10*3/uL (4.8-10.8)
[2021-06-29 02:43] LABS: Partial Thromboplastin Time 33.4 SEC (24.1-38.0)
[2021-06-29 02:46] LABS: COVID-19 Test Negative (Negative)
[2021-06-29 02:51] LABS: Alanine Aminotransferase 14 U/L (0-31); Albumin Level 4.2 g/dL (3.5-5.0); Alkaline Phosphatase 68 U/L (39-117); Anion Gap 15 (12-20); Aspartate Amino Transferase 17 U/L (5-31); Bilirubin Total 0.3 mg/dL (0.0-1.0); Blood Urea Nitrogen 11 mg/dL (9-16); Calcium 9.2 mg/dL (8.4-10.2); Carbon Dioxide 23 mmol/L (22-29); Chloride 107 mmol/L (96-108); Creatinine Clr Calc Pharmacy 59.8; Estimated Glomerular Filt Rate > 60; Glucose Random 115 mg/dL (60-115); Potassium 4.1 mmol/L (3.3-5.1); Sodium 141 mmol/L (135-145); Total Protein 6.7 g/dL (6.5-8.0)
[2021-06-29 03:02] LABS: Troponin-I High Sensitivity 6.5 ng/L (<3.5-17.0)
--- NOTE | 2021-07-03 14:14 | MHC.STROKE ---
CLARIFICATION OF LKW OR ONSET IS UNKNOWN. NO DOCUMENTATION IN MD NOTES OR TRIAGE. WILL USE DATE ONLY.
== END 2021-06-29 03:39 | disposition short-term general hospital (02) ==
PROVIDERS: Emergency Provider Emergency Medicine
DX: S06.369A Traumatic hemorrhage of cerebrum, unspecified, with loss of consciousness of unspecified duration, initial encounter (principal); R41.0 Disorientation, unspecified; M54.2 Cervicalgia; G44.309 Post-traumatic headache, unspecified, not intractable; F17.200 Nicotine dependence, unspecified, uncomplicated; W01.10XA Fall on same level from slipping, tripping and stumbling with subsequent striking against unspecified object, initial encounter; Y93.9 Activity, unspecified; Y92.9 Unspecified place or not applicable; Y99.9 Unspecified external cause status; Z79.899 Other long term (current) drug therapy; Z20.822 Contact with and (suspected) exposure to COVID-19; Z71.6 Tobacco abuse counseling
CPT/HCPCS: 36415; 70450; 72125; 80053; 84484; 85025; 85610; 85730; 87635; 93005; 99285

== ENCOUNTER 2021-08-03 10:24 | Emergency (ER) | payer MEDICARE, SELFPAY ==
--- NOTE | ~2021-08-03 | CT_ITS ---
EXAMINATION: CT BRAIN WITHOUT CONTRAST. CLINICAL INFORMATION: Fall, contusion. COMPARISON: CT brain 06/29/2021 TECHNIQUE: 5 minutes thin axial and reformatted 2 mm thin sagittal and coronal images of brain were obtained. There is a small FINDINGS: There is small heterogeneous lesion in the left basal ganglia, resolving hematoma seen on the previous study. The mass effect has reduced. No new areas of infarct, bleed or edema. The lateral ventricle size is slightly increased compared to previous study. There is diffuse periventricular hypodensity suggestive of chronic small vessel ischemic changes. Bone windows reveal no calvarial abnormality. There is no scalp soft tissue abnormality. Bilateral paranasal sinuses and mastoid air cells are well-aerated. CT/CT cervical spine wo con IMPRESSION: Resolving hematoma left basal ganglia with decreased mass effect. However the lateral ventricles are slightly prominent likely secondary to decreased edema. There is no change in chronic small vessel ischemic changes in both cerebral hemispheres.
--- NOTE | ~2021-08-03 | XR_ITS ---
EXAMINATION: XR CHEST CLINICAL INFORMATION: Fall. COMPARISON: CT chest 07/20/2020 TECHNIQUE: Frontal view of the chest was obtained. FINDINGS: The lungs are well-expanded and clear of acute pneumonic process. The heart size and pulmonary vascularity is normal. No pleural effusion. No gross bony abnormality. XR/XR chest 1V IMPRESSION: Unremarkable chest exam.
--- NOTE | ~2021-08-03 | CT_ITS ---
EXAMINATION: CT BRAIN WITHOUT CONTRAST. CLINICAL INFORMATION: Fall, contusion. COMPARISON: CT brain 06/29/2021 TECHNIQUE: 5 minutes thin axial and reformatted 2 mm thin sagittal and coronal images of brain were obtained. There is a small FINDINGS: There is small heterogeneous lesion in the left basal ganglia, resolving hematoma seen on the previous study. The mass effect has reduced. No new areas of infarct, bleed or edema. The lateral ventricle size is slightly increased compared to previous study. There is diffuse periventricular hypodensity suggestive of chronic small vessel ischemic changes. Bone windows reveal no calvarial abnormality. There is no scalp soft tissue abnormality. Bilateral paranasal sinuses and mastoid air cells are well-aerated. CT/CT head/brain wo con IMPRESSION: Resolving hematoma left basal ganglia with decreased mass effect. However the lateral ventricles are slightly prominent likely secondary to decreased edema. There is no change in chronic small vessel ischemic changes in both cerebral hemispheres.
[2021-08-03 10:32] VITALS: BP 119/80; PULSE 62; RESP 16; TEMP 36.3; O2SAT 98; BMI 24.2
--- NOTE | 2021-08-03 10:57 | ED_ITS ---
HPI - Fall General Chief Complaint: Fall Stated Complaint: Fall/head inj Time Seen by Provider: 08/03/21 10:50 Source: patient Mode of arrival: ambulatory Limitations: no limitations History of Present Illness HPI Narrative: 71 yo female hx of HTN, HLD, COPD recent ICH on 06/29 IPH L basal ganglia 3cm sent to [facility] taking her first shower went to reach for something and slipped hit head no LOC, picked up immediately has no complaints. At baseline has intermittent word finding issues and some confusion since stroke. Takes no blood thinners complaint: fall Onset (ago): minute(s) Fall from: standing (in shower) Fall witnessed: yes, by family and yes, by bystander Place fall occurred: home Loss of consciousness: none Prolonged down time: no Symptoms prior to fall: none Context: tripped/slipped Location of injury: head and back Severity: mild Associated symptoms (after fall): denies Related Data Home Medications Medication Instructions Recorded Confirmed atorvastatin 40 mg tablet 40 mg PO BEDTIME 08/03/21 08/03/21 doxazosin 4 mg tablet 4 mg PO BEDTIME 08/03/21 08/03/21 nicotine 7 mg/24 hr daily 1 patch TRANSDERMAL Q24H 08/03/21 08/03/21 transdermal patch Previous Rx's Medication Instructions Recorded levothyroxine 75 mcg tablet 75 mcg PO DAILY #90 tab 08/02/21 Allergies Allergy/AdvReac Type Severity Reaction Status Date / Time No Known Allergies Allergy Unknown Verified 08/02/21 13:20 [No Known Allergies*] Review of Systems Verdana 4l Review of Systems: Verdana 4d Verdana 4d Constitutional : No Fever, No Chills, No Fatigue ENT/Mouth : No sore throat, No Rhinorrhea Eyes: No Eye Pain, No Swelling, No Redness Cardiovascular : No Chest Pain, No SOB, No Dyspnea on Exertion Respiratory : No Cough, No Sputum GastrointestinalGastrointestinal : No Nausea, No Vomiting, No Diarrhea, No abdominal Pain Genitourinary : No Dysuria, No Urinary Frequency, No Hematuria, Musculoskeletal : No joint pain, No Myalgias, No Joint Swelling Skin : No Skin Lesions, No rash Neuro : No Weakness, No Numbness, No Dizziness, no Headache Psych : No Anxiety/Panic, No Depression Heme/Lymph: No Bruising, No Bleeding,No Lymphadenopathy Endocrine : No Polyuria, No Polydipsia All other systems reviewed and are negative [facility] Past Medical History Attestation statement: The following information was validated with the patient. Medical History Annual physical exam Breast mass COPD (chronic obstructive pulmonary disease) CVA (cerebrovascular accident due to intracerebral hemorrhage) HTN (hypertension) Hyperlipidemia Hypothyroidism Pneumonia Postmenopausal PVD (peripheral vascular disease) Skin growth Tobacco dependence Surgical History H/O: hysterectomy Family History Family History Mother Heart problem Father Adenocarcinoma Sister Myocardial infarct Social History Social History Household Members Other:: Lives with sister, never , walks daily Housing: House Alcohol intake: never Patient Tobacco Use Status: Former Tobacco user Quit Date: 06/29/21 e-Cigarette/Vaping Use: Never Used Use of substances other than those prescribed or required for medical reasons: No Advance Directives: Yes Advance Directives Information Provided: No Advance Directives on File: No Current occupational status: retired Physical Exam Verdana 4l Vital Signs: Verdana 4d Verdana 4d Vital Signs: Verdana 4d Verdana 4Bd Last Vital Signs Verdana 4d [employer]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 Oriented X3. No acute distress. Eyes: Pupils equal, round and reactive to light. ENT: Pharynx normal. Neck: Normal inspection. Neck supple. CVS: Normal heart rate and rhythm. Pulses normal. Respiratory: No respiratory distress. Breath sounds normal. Abdomen: Soft and non-tender. Back: no midline ttp Skin: Skin warm and dry. Normal skin color. Normal skin turgor. Extremities: No lower extremity edema. No calf ttp Neuro: Oriented X 3. No motor deficit. No sensory deficit. Course Course Course Narrative: no acute findings, stable for DC at baseline, decline further services MDM - Fall MDM Narrative Medical decision making narrative: 71 yo female with hx of HTN, HLD, COPD, recent basal ganglia ICH 06/29 doing well sent to rehab and now home was in shower and slipped no LOC - family and occupational health present. Sister notes she is at baseline. At this time will obtain CXR, CT head/cervical spine for trauma. Dispo per results and findings. Discharge Plan Discharge Clinical Impression: Head injury Patient Disposition: Home, Self-Care Instructions: Head Injury (ED) Additional Instructions: return to ED for any worsening symptoms or concerns no acute trauma on CT head or cervical spine stay with responsible adult return for any concerns Prescriptions: No Action nicotine 7 mg/24 hr Patch 24 Hour 1 patch TRANSDERMAL Q24H 0RF atorvastatin 40 mg tablet 40 mg PO BEDTIME 0RF doxazosin 4 mg tablet 4 mg PO BEDTIME 0RF levothyroxine 75 mcg tablet 75 mcg PO DAILY Qty: 90 0RF
[2021-08-03 11:11] VITALS: BP 116/79; PULSE 65; RESP 16; TEMP 36.6
--- NOTE | 2021-08-03 11:37 | PC.NURSE ---
patient a&o, family at bedside, pt has no c/o pain or discomfort, pt states she has rt sided weakness from old stroke, pt currently reading and conversing with family, pt waiting on CT, will continue to monitor.
== END 2021-08-03 13:47 | disposition home or self-care (01) ==
PROVIDERS: Emergency Provider Emergency Medicine; PCP Internal Medicine
DX: S09.90XA Unspecified injury of head, initial encounter (principal); W18.2XXA Fall in (into) shower or empty bathtub, initial encounter; Z91.81 History of falling; I10 Essential (primary) hypertension; E78.5 Hyperlipidemia, unspecified; Y93.E1 Activity, personal bathing and showering; Y92.012 Bathroom of single-family (private) house as the place of occurrence of the external cause; Y99.9 Unspecified external cause status
CPT/HCPCS: 70450; 71045; 72125; 99284

== ENCOUNTER 2021-09-06 09:19 | Outpatient (REF) | payer MEDICARE, SELFPAY ==
[2021-09-06 11:41] LABS: Hematocrit 39.8 % (37.0-47.0); Hemoglobin 12.7 g/dl (12.0-16.0); Mean Corpuscular HGB Conc 31.9 g/dl (31.0-35.0); Mean Corpuscular Hemoglobin 30.2 pg (27.0-33.0); Mean Corpuscular Volume 94.5 fL (80.0-98.0); Mean Platelet Volume 11.6 fL (9.4-12.3); Platelet Count 239 X10*3/uL (160-400); Red Blood Count 4.21 X10*6/uL (4.20-5.50); Red Cell Distribution Width 12.9 % (11.0-16.0); White Blood Count 5.2 X10*3/uL (4.8-10.8)
[2021-09-06 11:50] LABS: Alanine Aminotransferase 23 U/L (0-31); Alkaline Phosphatase 77 U/L (39-117); Anion Gap 12 (12-20); Aspartate Amino Transferase 21 U/L (5-31); Bilirubin Total 0.6 mg/dL (0.0-1.0); Blood Urea Nitrogen 12 mg/dL (9-16); Calcium 9.5 mg/dL (8.4-10.2); Carbon Dioxide 28 mmol/L (22-29); Chloride 107 mmol/L (96-108); Cholesterol 169 mg/dL; Estimated Glomerular Filt Rate > 60; Glucose Fasting 101 mg/dL (60-99); HDL Cholesterol 52 mg/dL; LDL Cholesterol Calculated 100 mg/dl; Potassium 4.3 mmol/L (3.3-5.1); Sodium 143 mmol/L (135-145); Total Protein 6.4 g/dL (6.5-8.0); Triglycerides 89 mg/dL
[2021-09-06 12:18] LABS: TSH reflex Free T4 4.11 uIU/mL (0.32-4.0)
[2021-09-06 13:23] LABS: Free T4 (Free Thyroxine) 1.07 ng/dL (0.71-1.85)
== END 2021-09-06 09:20 | disposition home or self-care (01) ==
LOC: HO.HMGCLDS 09:19
PROVIDERS: PCP Internal Medicine; Visit Provider Internal Medicine
DX: E03.9 Hypothyroidism, unspecified (principal); E78.5 Hyperlipidemia, unspecified
CPT/HCPCS: 36415; 80053; 80061; 84439; 84443; 85027

== ENCOUNTER 2021-11-01 11:04 | Inpatient (IN) | payer MEDICARE, SELFPAY ==
[2021-11-01] VITALS (8 sets, daily range): BP systolic 110–141; BP diastolic 60–95; PULSE 65–153; RESP 17–22; TEMP 36.3–36.7; O2SAT 94–97; BMI 25.2; BMI 25.0
--- NOTE | ~2021-11-01 | XR_ITS ---
EXAMINATION: XR CHEST CLINICAL INFORMATION: Dyspnea COMPARISON: Previous chest x-ray August 2021 TECHNIQUE: Frontal view of the chest was obtained. FINDINGS: The cardiac and mediastinal contours are stable. There is atelectasis or small infiltrate at the left lung base. The lungs are otherwise clear. There is no pleural effusion or pneumothorax. There are degenerative changes of the spine. XR/XR chest 1V IMPRESSION: Atelectasis or small infiltrate at the left lung base.
--- NOTE | 2021-11-01 11:39 | ECG_ITS ---
Test Reason : dyspnea Blood Pressure : / mmHG Vent. Rate : 084 BPM Atrial Rate : 084 BPM P-R Int : 130 ms QRS Dur : 074 ms QT Int : 388 ms P-R-T Axes : 060 025 046 degrees QTc Int : 458 ms Sinus rhythm with Premature atrial complexes Low voltage QRS Nonspecific T wave abnormality Abnormal ECG When compared with ECG of 29-JUN-2021 02:38, No significant change was found Referred By: Dora Jones Electronically Signed By:Carloz Moise
--- NOTE | 2021-11-01 11:43 | ED_ITS ---
HPI - SOB/Dyspnea General Chief Complaint: Dyspnea Stated Complaint: CONGESTION SOB Time Seen by Provider: 11/01/21 11:29 Source: patient, family and old records reviewed Mode of arrival: ambulatory Limitations: no limitations History of Present Illness HPI Narrative: desaturates during our interview at rest to 85% off oxygen given neb at urgent care with minimal improvement MD elicited complaint: shortness of breath and cough (hypoxia at urgent care 82%) Pertinent past history: COPD and pneumonia Onset (ago): day(s) (last week but much worse today ) Timing: progressively worsening Severity: moderate Exacerbating factors: exertion (very winded with any exertion) and coughing Relieving factors: oxygen and rest Known history of: COPD and recurrent pneumonia Associated symptoms: cough and wheezing Treatment prior to arrival: oxygen and bronchodilator Related Data Home Medications Medication Instructions Recorded Confirmed atorvastatin 40 mg tablet 40 mg PO BEDTIME 08/03/21 11/01/21 doxazosin 4 mg tablet 4 mg PO BEDTIME 08/03/21 11/01/21 multivitamin 1 tab PO DAILY@1200 11/01/21 11/01/21 Previous Rx's Medication Instructions Recorded levothyroxine 75 mcg tablet 75 mcg PO DAILY #90 tab 08/02/21 Allergies Allergy/AdvReac Type Severity Reaction Status Date / Time No Known Allergies Allergy Unknown Verified 11/01/21 10:45 [No Known Allergies*] Review of Systems Review of Systems: Constitutional : No Fever, No Chills ENT/Mouth : No sore throat, No Rhinorrhea, No Swallowing Difficulty Eyes: No Eye Pain, No Swelling, No Redness Cardiovascular : No Chest Pain, positive SOB, No Orthopnea, no Edema Respiratory : pos Cough, No Sputum, No Wheezing, positive dyspnea Gastrointestinal : No Nausea, No Vomiting, No Diarrhea, No abdominal Pain, No Hematochezia, No Melena Genitourinary : No Dysuria, No Urinary Frequency, No Hematuria Musculoskeletal : No joint pain, No Myalgias Skin : No Skin Lesions, No rash Neuro : No Weakness, No Numbness, No Dizziness, No Headache Psych : No Anxiety/Panic, No Depression Heme/Lymph: No Bruising, No Lymphadenopathy Endocrine : No Polyuria, No Polydipsia All other systems reviewed and are negative [facility] Past Medical History Attestation statement: The following information was validated with the patient. Medical History Annual physical exam Breast mass COPD (chronic obstructive pulmonary disease) CVA (cerebrovascular accident due to intracerebral hemorrhage) HTN (hypertension) Hyperlipidemia Hypothyroidism Pneumonia Postmenopausal PVD (peripheral vascular disease) Skin growth Tobacco dependence Surgical History H/O: hysterectomy Family History Family History Mother Heart problem Father Adenocarcinoma Sister Myocardial infarct Social History Social History Household Members Other:: Lives with sister, never , walks daily Housing: House Alcohol intake: never Patient Tobacco Use Status: Former Tobacco user Quit Date: 06/29/21 e-Cigarette/Vaping Use: Never Used Use of substances other than those prescribed or required for medical reasons: No Advance Directives: No Advance Directives Information Provided: No Current occupational status: retired Physical Exam Vital Signs: Vital Signs: Last Vital Signs Temp 98.1 F 11/01/21 11:21 Pulse 81 11/01/21 12:01 Resp 18 11/01/21 12:01 BP 123/88 11/01/21 11:21 Pulse Ox 97 11/01/21 11:21 Oxygen Flow Rate 2 11/01/21 11:21 BMI result Body Mass Index 25.2 Appearance: Alert. Oriented X3. No acute distress. Eyes: Pupils equal, round and reactive to light. ENT: Pharynx normal. Neck: Normal inspection. Neck supple. CVS: Normal heart rate and rhythm. Pulses normal. Respiratory: No respiratory distress. Breath sounds decreased LL with rales Abdomen: Soft and non-tender. Skin: Skin warm and dry. Normal skin color. Normal skin turgor. Extremities: No lower extremity edema. No calf ttp Neuro: Oriented X 3. No motor deficit. No sensory deficit. Course Course Course Narrative: still requiring O2 - will admit for O2 and IV abx MDM - SOB/Dyspnea MDM Narrative Medical decision making narrative: 71 yo female with hx of CVA, COPD, pneumonia, HTN, HLD, hypothyroidism, has had a cough for 1 week now hypoxic hx of pneumonia and COPD - will need labs, cultures, lactic acid, CXR, IV steroids, albuterol - CXR, empiric antibiotics for likely COPD flare. Lab Data Result diagrams: 11/01/21 12:02 11/01/21 12:47 Labs: Lab Results 11/01/21 11/01/21 11/01/21 Range/Units 12:02 12:02 12:02 WBC 9.2 (4.8-10.8) X10*3/uL RBC 3.89 L (4.20-5.50) X10*6/uL Hgb 11.7 L (12.0-16.0) g/dl Hct 35.8 L (37.0-47.0) % MCV 92.0 (80.0-98.0) fL MCH 30.1 (27.0-33.0) pg MCHC 32.7 (31.0-35.0) g/dl RDW 12.9 (11.0-16.0) % Plt Count 289 (160-400) X10*3/uL MPV 10.9 (9.4-12.3) fL Immature Gran % (Auto) 0.3 (0.0-0.4) % Neut % (Auto) 78.4 H (45-73) % Lymph % (Auto) 11.9 L (20-40) % [place] % (Auto) 8.3 (2-11) % Eos % (Auto) 0.4 (0-4) % Baso % (Auto) 0.7 (0-2) % Lymph # (Auto) 1.1 L (1.2-4.9) X10*3/uL [place] # (Auto) 0.8 (0.1-1.2) X10*3/uL Eos # (Auto) 0.0 (0.0-0.4) X10*3/uL Baso # (Auto) 0.1 (0.0-0.2) X10*3/uL Abs Immat Gran (auto) 0.03 (0.00-0.03) X10*3/uL Absolute Neuts (auto) 7.2 (2.0-8.3) x10*3/uL Absolute Nucleated RBC 0.000 (0.0-0.012) X10*3/uL Nucleated RBC % (auto) 0.0 (0.0-0.2) /100WBC VBG pH (7.32-7.43) VBG pCO2 mmHg VBG pO2 mmHg VBG HCO3 (22-26) mmol/L VBG O2 Saturation % VBG Base Excess mmol/L Sodium (135-145) mmol/L Potassium (3.3-5.1) mmol/L Chloride (96-108) mmol/L Carbon Dioxide (22-29) mmol/L Anion Gap (12-20) BUN (9-16) mg/dL Creatinine (0.5-1.4) mg/dL Estim Creat Clear Calc Estimated GFR Random Glucose (60-115) mg/dL Lactic Acid (0.5-2.0) mmol/L Calcium (8.4-10.2) mg/dL Magnesium (1.6-2.6) mg/dL Total Bilirubin (0.0-1.0) mg/dL Direct Bilirubin (0.0-0.5) mg/dL AST (5-31) U/L ALT (0-31) U/L Alkaline Phosphatase (39-117) U/L Troponin I High Sens 6.7 (<3.5-17.0) ng/L B-Natriuretic Peptide 271 H (<100) pg/mL Total Protein (6.5-8.0) g/dL Albumin (3.5-5.0) g/dL Lipase (8-78) U/L COVID-19 (DONA) Negative (Negative) COVID-19 Clin Com See Note 11/01/21 11/01/21 11/01/21 Range/Units 12:02 12:24 12:47 WBC (4.8-10.8) X10*3/uL RBC (4.20-5.50) X10*6/uL Hgb (12.0-16.0) g/dl Hct (37.0-47.0) % MCV (80.0-98.0) fL MCH (27.0-33.0) pg MCHC (31.0-35.0) g/dl RDW (11.0-16.0) % Plt Count (160-400) X10*3/uL MPV (9.4-12.3) fL Immature Gran % (Auto) (0.0-0.4) % Neut % (Auto) (45-73) % Lymph % (Auto) (20-40) % [place] % (Auto) (2-11) % Eos % (Auto) (0-4) % Baso % (Auto) (0-2) % Lymph # (Auto) (1.2-4.9) X10*3/uL [place] # (Auto) (0.1-1.2) X10*3/uL Eos # (Auto) (0.0-0.4) X10*3/uL Baso # (Auto) (0.0-0.2) X10*3/uL Abs Immat Gran (auto) (0.00-0.03) X10*3/uL Absolute Neuts (auto) (2.0-8.3) x10*3/uL Absolute Nucleated RBC (0.0-0.012) X10*3/uL Nucleated RBC % (auto) (0.0-0.2) /100WBC VBG pH 7.38 (7.32-7.43) VBG pCO2 40 mmHg VBG pO2 68 mmHg VBG HCO3 24 (22-26) mmol/L VBG O2 Saturation 90.0 % VBG Base Excess -0.5 mmol/L Sodium 139 (135-145) mmol/L Potassium 3.6 (3.3-5.1) mmol/L Chloride 103 (96-108) mmol/L Carbon Dioxide 25 (22-29) mmol/L Anion Gap 15 (12-20) BUN 10 (9-16) mg/dL Creatinine 0.78 (0.5-1.4) mg/dL Estim Creat Clear Calc 60.1 Estimated GFR > 60 Random Glucose 122 H (60-115) mg/dL Lactic Acid 1.2 (0.5-2.0) mmol/L Calcium 9.2 (8.4-10.2) mg/dL Magnesium 1.9 (1.6-2.6) mg/dL Total Bilirubin 0.7 (0.0-1.0) mg/dL Direct Bilirubin 0.3 (0.0-0.5) mg/dL AST 18 (5-31) U/L ALT 29 (0-31) U/L Alkaline Phosphatase 103 D (39-117) U/L Troponin I High Sens (<3.5-17.0) ng/L B-Natriuretic Peptide (<100) pg/mL Total Protein 6.5 (6.5-8.0) g/dL Albumin 3.8 (3.5-5.0) g/dL Lipase 5 L (8-78) U/L COVID-19 (DONA) (Negative) COVID-19 Clin Com ECG Data Attestation: I personally reviewed and interpreted this ECG as follows: ECG interpretation date: 11/01/21 ECG interpretation time: 12:51 Interpretation: Rate: 85 Rhythm: NSR with PACs [place]: normal Normal P waves. Normal RAMANDEEP. Normal QRS complex. ST T wave : no VIRIDIANA, nonspecific qTC: normal prior studies: no acute ischemia The study has been interpreted contemporaneously by me. . Discharge Plan Discharge Clinical Impression: COPD exacerbation, Hypoxia Pneumonia Qualifiers: Pneumonia type: due to unspecified organism Laterality: left Lung location: lower lobe of lung Qualified Code(s): J18.9 - Pneumonia, unspecified organism Patient Disposition: Admitted As Inpatient
[2021-11-01] MEDS: Albuterol Sulfate (0.083%) 2.5 MG/3 ML VIAL.NEB INHALE (12:01)
--- NOTE | 2021-11-01 12:02 | PHA.MEDREC ---
Pharmacy Consult ? Medication Reconciliation Pharmacy has completed the medication reconciliation. No remarkable issues. Chapis Ferrer, ElijahD
[2021-11-01] MEDS: methylPREDNISolone Sod Succ 125 MG/2 ML VIAL IVPUSH (12:05)
[2021-11-01] MEDS: cefTRIAXone sodium 1 GM in 0.9 % Sodium Chloride 50 ML IV (12:10)
[2021-11-01 12:11] LABS: MANUAL DIFF FLAG NO
[2021-11-01 12:19] LABS: Basophils Absolute Auto 0.1 X10*3/uL (0.0-0.2); Basophils Percent Auto 0.7 % (0-2); Eosinophils Percent Auto 0.4 % (0-4); Hematocrit 35.8 % (37.0-47.0); Hemoglobin 11.7 g/dl (12.0-16.0); Imm Gran Abs Auto 0.03 X10*3/uL (0.00-0.03); Imm Gran Pct Auto 0.3 % (0.0-0.4); Lymphocytes Absolute Auto 1.1 X10*3/uL (1.2-4.9); Lymphocytes Percent Auto 11.9 % (20-40); Mean Corpuscular HGB Conc 32.7 g/dl (31.0-35.0); Mean Corpuscular Hemoglobin 30.1 pg (27.0-33.0); Mean Platelet Volume 10.9 fL (9.4-12.3); Monocytes Absolute Auto 0.8 X10*3/uL (0.1-1.2); Monocytes Percent Auto 8.3 % (2-11); Neutrophils Absolute Auto 7.2 x10*3/uL (2.0-8.3); Neutrophils Percent Auto 78.4 % (45-73); Platelet Count 289 X10*3/uL (160-400); Red Blood Count 3.89 X10*6/uL (4.20-5.50); Red Cell Distribution Width 12.9 % (11.0-16.0); White Blood Count 9.2 X10*3/uL (4.8-10.8)
[2021-11-01 12:30] LABS: Lactic Acid 1.2 mmol/L (0.5-2.0)
[2021-11-01 12:30] LABS: VBG Base Excess -0.5 mmol/L; VBG HCO3 24 mmol/L (22-26); VBG pCO2 40 mmHg; VBG pH 7.38 (7.32-7.43); VBG pO2 68 mmHg
[2021-11-01 12:31] LABS: Venous Blood Gas Refer to POC result
[2021-11-01 12:32] LABS: COVID-19 Test Negative (Negative)
[2021-11-01 12:41] LABS: B Type Natriuretic Peptide 271 pg/mL (<100); Troponin-I High Sensitivity 6.7 ng/L (<3.5-17.0)
[2021-11-01] MEDS: Azithromycin 500 MG in 0.9 % Sodium Chloride 250 ML 125 MG IV (12:52)
[2021-11-01 13:27] LABS: Alanine Aminotransferase 29 U/L (0-31); Albumin Level 3.8 g/dL (3.5-5.0); Alkaline Phosphatase 103 U/L (39-117); Anion Gap 15 (12-20); Aspartate Amino Transferase 18 U/L (5-31); Bilirubin Direct 0.3 mg/dL (0.0-0.5); Bilirubin Total 0.7 mg/dL (0.0-1.0); Blood Urea Nitrogen 10 mg/dL (9-16); Calcium 9.2 mg/dL (8.4-10.2); Carbon Dioxide 25 mmol/L (22-29); Chloride 103 mmol/L (96-108); Creatinine Clr Calc Pharmacy 60.1; Estimated Glomerular Filt Rate > 60; Glucose Random 122 mg/dL (60-115); Lipase 5 U/L (8-78); Magnesium 1.9 mg/dL (1.6-2.6); Potassium 3.6 mmol/L (3.3-5.1); Sodium 139 mmol/L (135-145); Total Protein 6.5 g/dL (6.5-8.0)
--- NOTE | 2021-11-01 15:30 | PM.IMHP ---
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, history of COPD, hypertension, hyperlipidemia, hypothyroidism , former smoker quit smoking May 2021,presented to [facility] with 1 week history of shortness of breath and dry cough, without associated fever chills patient denies recent travels denies symptoms of seasonal allergies, no exposure to sick contacts, in the emergency room patient was noted to be hypoxic finger oximetry 85% without oxygen, mild tachypnea, chest x-ray showed small infiltrate left lung base atelectasis versus early pneumonia, labs showed normal WBC count, no fevers due to significant shortness of breath and hypoxia patient treated in the emergency room with updraft treatment, IV Solu Medrol and IV antibiotic and due to persistent shortness of breath and hypoxia patient is being admitted to [facility] with a diagnosis of acute hypoxic respiratory failure. Review of Systems Review of Systems: General no headache no dizziness no fever chills. CVS no chest pain, no palpitation. Respiratory per HPI Gastrointestinal no nausea no vomiting, no abdominal pain no urinary urgency, no dysuria Yes all other systems are reviewed and are negative [facility] Medical History Annual physical exam Breast mass COPD (chronic obstructive pulmonary disease) CVA (cerebrovascular accident due to intracerebral hemorrhage) HTN (hypertension) Hyperlipidemia Hypothyroidism Pneumonia Postmenopausal PVD (peripheral vascular disease) Skin growth Tobacco dependence Family History Mother Heart problem Father Adenocarcinoma Sister Myocardial infarct Surgical History H/O: hysterectomy Social History Household Members Other:: Lives with sister, never , walks daily Housing: House Alcohol intake: never Patient Tobacco Use Status: Former Tobacco user Quit Date: 06/29/21 e-Cigarette/Vaping Use: Never Used Use of substances other than those prescribed or required for medical reasons: No Advance Directives: No Advance Directives Information Provided: No Current occupational status: retired [employer] Allergies Allergy/AdvReac Type Severity Reaction Status Date / Time No Known Allergies Allergy Unknown Verified 11/01/21 10:45 [No Known Allergies*] Active Medications: Current Medications Acetaminophen (Acetaminophen 325 Mg Tablet) 650 mg PO Q6H PRN PRN Reason: Pain, Mild (Pain Scale 1-3) Albuterol/Ipratropium (Albuterol/Iprat 2.5/0.5mg 3 Ml Ampul.Neb) 3 ml INHALE RQ4H WHILE AWAKE HAMZAH Albuterol/Ipratropium (Albuterol/Iprat 2.5/0.5mg 3 Ml Ampul.Neb) 3 ml INHALE RQ4H PRN PRN Reason: sob Atorvastatin Calcium (Atorvastatin Calcium 40 Mg Tablet) 40 mg PO BEDTIME HAMZAH Benzonatate (Benzonatate 100 Mg Capsule) 100 mg PO TID PRN PRN Reason: Cough Doxazosin Mesylate (Doxazosin Mesylate 2 Mg Tablet) 4 mg PO BEDTIME HAMZAH; Protocol Azithromycin 500 mg/ Sodium (Chloride) 250 mls @ 125 mls/hr IV Q24H [facility] Levothyroxine Sodium (Levothyroxine Sodium 75 Mcg Tablet) 75 mcg PO DAILY@0600 [facility] Melatonin (Melatonin 3 Mg Tablet) 3 mg PO BEDTIME PRN PRN Reason: Insomnia Methylprednisolone Sodium Succinate (Methylprednisolone Sod Succ 40 Mg/Ml Vial) 40 mg IVPUSH Q12H [facility] Multivitamins/Vitamin C (Multivitamin Tablet) 1 tab PO DAILY@1200 [facility] Ondansetron HCl (Ondansetron Hcl 4 Mg/2 Ml Vial) 4 mg IVPUSH Q8H PRN PRN Reason: Nausea and Vomiting Pharmacy Consult (Consult Rx Perform Med Rec) 1 each MISCELLANE ONCE PRN PRN Reason: Consult order Sodium Chloride (0.9 % Sodium Chloride Flush 3 Ml Syringe) 3 ml IVFLUSH QSHIFT [facility] Home Medications Medication Instructions Recorded Confirmed Last Taken Type atorvastatin 40 mg tablet 40 mg PO BEDTIME 08/03/21 11/01/21 10/31/21 History doxazosin 4 mg tablet 4 mg PO BEDTIME 08/03/21 11/01/21 10/31/21 History multivitamin 1 tab PO DAILY@1200 11/01/21 11/01/21 10/31/21 History Physical Exam Vital Signs and Narrative: Vital Signs: Last Vital Signs Temp 98.1 F 11/01/21 11:21 Pulse 86 11/01/21 14:36 Resp 22 H 11/01/21 14:36 BP 129/69 11/01/21 14:36 Pulse Ox 95 11/01/21 14:36 Oxygen Flow Rate 2 11/01/21 11:21 BMI result Body Mass Index 25.2 Const: Other: General awake alert x 3,in no acute distress. HEENT pupil equal round reactive to light and accommodation extraocular muscles intact Neck is supple no JVD. CVS regular rate rhythm, Respiratory lungs diminished breath sound bilaterally, no use of accessory muscles Gastrointestinal abdomen soft, nontender, bowel sounds audible Extremities no edema. Neuro expressive aphasia psych appropriate affect Skin no rash Results Labs CBC and Chem 7: 11/01/21 12:02 11/01/21 12:47 Labs: Laboratory Results - last 24 hr 11/01/21 11/01/21 11/01/21 12:02 12:02 12:02 MCV 92.0 MCH 30.1 MCHC 32.7 RDW 12.9 Plt Count 289 MPV 10.9 Immature Gran % (Auto) 0.3 Neut % (Auto) 78.4 H Lymph % (Auto) 11.9 L [place] % (Auto) 8.3 Eos % (Auto) 0.4 Baso % (Auto) 0.7 Lymph # (Auto) 1.1 L [place] # (Auto) 0.8 Eos # (Auto) 0.0 Baso # (Auto) 0.1 Abs Immat Gran (auto) 0.03 Absolute Neuts (auto) 7.2 Absolute Nucleated RBC 0.000 Nucleated RBC % (auto) 0.0 VBG pH VBG pCO2 VBG pO2 VBG HCO3 VBG O2 Saturation VBG Base Excess Anion Gap Estim Creat Clear Calc Estimated GFR Random Glucose Lactic Acid Calcium Magnesium Total Bilirubin Direct Bilirubin AST ALT Alkaline Phosphatase Troponin I High Sens 6.7 B-Natriuretic Peptide 271 H Total Protein Albumin Lipase COVID-19 (DONA) Negative COVID-19 Clin Com See Note 11/01/21 11/01/21 11/01/21 12:02 12:24 12:47 MCV MCH MCHC RDW Plt Count MPV Immature Gran % (Auto) Neut % (Auto) Lymph % (Auto) [place] % (Auto) Eos % (Auto) Baso % (Auto) Lymph # (Auto) [place] # (Auto) Eos # (Auto) Baso # (Auto) Abs Immat Gran (auto) Absolute Neuts (auto) Absolute Nucleated RBC Nucleated RBC % (auto) VBG pH 7.38 VBG pCO2 40 VBG pO2 68 VBG HCO3 24 VBG O2 Saturation 90.0 VBG Base Excess -0.5 Anion Gap 15 Estim Creat Clear Calc 60.1 Estimated GFR > 60 Random Glucose 122 H Lactic Acid 1.2 Calcium 9.2 Magnesium 1.9 Total Bilirubin 0.7 Direct Bilirubin 0.3 AST 18 ALT 29 Alkaline Phosphatase 103 D Troponin I High Sens B-Natriuretic Peptide Total Protein 6.5 Albumin 3.8 Lipase 5 L COVID-19 (DONA) COVID-19 Clin Com Imaging Radiologist's Impressions: Impressions Chest X-Ray 11/01/21 11:53 IMPRESSION: Atelectasis or small infiltrate at the left lung base. 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 Acute hypoxic respiratory failure due to COPD exacerbation and pneumonia left lung base. will admit to medical floor no evidence of acute sepsis will place on scheduled and as needed DuoNeb updraft, IV Solu Medrol 60 mg q.12 hours, IV ceftriaxone and IV azithromycin day 1, cough medication as needed continue oxygen and gradually wean as tolerated follow blood cultures and clinical course closely. hypothyroidism continue Synthroid hyperlipidemia continue Lipitor code status full code DVT prophylaxis with compression boots due to gradually resolving intraparenchymal hemorrhage. patient will require 2 night inpatient hospitalization due to acute hypoxic respiratory failure requiring treatment with IV steroids and IV antibiotics. Quality Stroke Does the patient have a stroke diagnosis?: No VTE Prior VTE?: No VTE Risk Level:: Medical - moderate - high VTE Device Contraindication: N/A - Device Ordered VTE Drug Contraindication: Treatment Not Indicated
[2021-11-01] MEDS: Albuterol/Iprat 2.5/0.5MG 3 ML AMPUL.NEB INHALE ×2 (15:59→20:21)
[2021-11-01] MEDS: 0.9 % Sodium Chloride Flush 3 ML SYRINGE IVFLUSH ×2 (16:46→21:42)
[2021-11-01] MEDS: Doxazosin Mesylate 2 MG TABLET 4 MG PO (21:16)
[2021-11-01] MEDS: Atorvastatin Calcium 40 MG TABLET PO (21:16)
--- NOTE | 2021-11-01 21:20 | ECG_ITS ---
Test Reason : TACHICARDIA Blood Pressure : / mmHG Vent. Rate : 142 BPM Atrial Rate : 000 BPM P-R Int : 000 ms QRS Dur : 076 ms QT Int : 320 ms P-R-T Axes : 000 -04 -23 degrees QTc Int : 492 ms Atrial fibrillation with rapid ventricular response Low voltage QRS ST & T wave abnormality, consider inferior ischemia Abnormal ECG When compared with ECG of 01-NOV-2021 12:31, Atrial fibrillation has replaced Sinus rhythm Vent. rate has increased BY 58 BPM Referred By: Louie Kwan Electronically Signed By:Carloz Moise
[2021-11-01] MEDS: Metoprolol Tartrate 5 MG/5 ML VIAL IVPUSH (21:33)
--- NOTE | 2021-11-01 21:47 | PC.NURSE ---
Patient arrived from [facility] in tele: sinus rythym with pac's now in rapid afib 140-150's Ekg done. Dr. Davis notified ordere iv metoprolol 5m iv push. Had to replace iv to left forearm 20 g. Patient does not feel any palpitations. tele: sinus rythym 70's Will continue with plan of care. Patient to be transferred to room 468.
[2021-11-01] MEDS: methylPREDNISolone Sod Succ 40 MG/ML VIAL IVPUSH (23:28)
[2021-11-02 04:00] VITALS: BP 126/79; PULSE 74; TEMP 36.6; O2SAT 95
[2021-11-02] MEDS: Levothyroxine Sodium 75 MCG TABLET PO (06:15)
[2021-11-02 07:19] VITALS: BP 121/66; PULSE 77; RESP 20; TEMP 36.6; O2SAT 95
[2021-11-02] MEDS: Albuterol/Iprat 2.5/0.5MG 3 ML AMPUL.NEB INHALE ×3 (07:36→15:14)
[2021-11-02 07:38] VITALS: PULSE 68; RESP 16; O2SAT 96
[2021-11-02] MEDS: 0.9 % Sodium Chloride Flush 3 ML SYRINGE IVFLUSH (08:43)
--- NOTE | 2021-11-02 09:19 | MHC.CM.PN ---
Addendum entered by Lorri Narayanan 11/02/21 09:23: [facility] [employer] X3 Original Note: IMM 11/02/21 Female 71 DX Chest pain. She lives with her sister (also a nurse) Patient is independent all functional mobility. No AD needed. DP home no services family transport. If services are required, she will accept. Family will provide transportation home. No HCP on file. Patient education provided. Patient will review the form and consider documenting a HCP.
[2021-11-02 11:29] VITALS: BP 107/53; PULSE 74; RESP 18; TEMP 37.1; O2SAT 95
[2021-11-02 12:06] VITALS: PULSE 75; RESP 16; O2SAT 98
[2021-11-02] MEDS: Azithromycin 500 MG in 0.9 % Sodium Chloride 250 ML 125 MG IV (12:06)
[2021-11-02] MEDS: methylPREDNISolone Sod Succ 40 MG/ML VIAL IVPUSH (12:06)
[2021-11-02] MEDS: Multivitamin TABLET 1 TAB PO (12:19)
[2021-11-02 15:15] VITALS: PULSE 83; RESP 18; O2SAT 98
--- NOTE | 2021-11-02 15:22 | PM.DS ---
DS: Providers Provider Date of Service: 11/02/21 Date of admission: 11/01/21 15:22 Primary care physician: Marce Garcia MD DS: Diagnosis Discharge Diagnosis (1) COPD exacerbation: Status: Acute (2) Hypoxia: Status: Acute (3) Pneumonia: Status: Acute (4) Hypothyroidism: Status: Acute (5) Hyperlipidemia: Status: Acute (6) HTN (hypertension): Status: Acute DS: Summary Hospital Course Hospital Course: Chief Complaint:? 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 , former smoker quit smoking May 2021,presented to [facility] with 1 week history of shortness of breath and dry cough, without associated fever chills patient denies recent travels denies symptoms of seasonal allergies, no exposure to sick contacts, in the emergency room patient was noted to be hypoxic finger oximetry 85% without oxygen, mild tachypnea, chest x-ray showed small infiltrate left lung base atelectasis versus early pneumonia, labs showed normal WBC count, no fevers due to significant shortness of breath and hypoxia patient treated in the emergency room with updraft treatment, IV Solu Medrol and IV antibiotic and due to persistent shortness of breath and hypoxia patient is being admitted to [facility] with a diagnosis of acute hypoxic respiratory failure. 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, former smoker, history of COPD, hypertension, hyperlipidemia, hypothyroidism presented to [place] [facility] with 1 week history of progressing shortness of breath and nonproductive cough diagnosed to have acute hypoxic respiratory failure due to COPD exacerbation and pneumonia, patient admitted to medical floor and treated with IV steroids, scheduled and as needed updraft treatment, IV ceftriaxone and azithromycin patient responded well to above treatment, symptoms of shortness of breath and cough have significantly improved oxygenation is stable on room air therefore patient is being discharged home on by mouth Ceftin and azithromycin for total 5 day course of antibiotic and is given prednisone 20 mg daily for 3 more days patient has been recommended to use albuterol inhaler as needed for shortness of breath patient has no history of intermittent shortness of breath and not on home inhalers. Blood culture showed no growth patient had no evidence of sepsis on admission. Atrial fibrillation with RVR patient had a brief run of atrial fibrillation with RVR new onset,that responded to 5 mg of Lopressor patient currently is in normal sinus rhythm asymptomatic with no chest pain or palpitation patient has no prior history of atrial fibrillation TSH is within normal range, patient is not a candidate for anticoagulation due to intraparenchymal hemorrhage, recommended outpatient follow-up with Cardiology notified Cardiology team Hypothyroidism continue Synthroid Hyperlipidemia continue Lipitor Time Spent with Patient Time attestation: Total time spent providing and/or coordinating discharge services: Discharge coordination time: Greater than 30 minutes Quality: Safe Use of Opioids Does Pt have an Active Cancer Diagnosis on the Problem List?: No Quality: Stroke Does the patient have a stroke diagnosis?: No Physical Exam Vital Signs: Vital Signs: Last Vital Signs Temp 98.7 F 11/02/21 11:29 Pulse 83 11/02/21 15:15 Resp 18 11/02/21 15:15 BP 107/53 L 11/02/21 11:29 Pulse Ox 95 11/02/21 11:29 Oxygen Flow Rate 2 11/01/21 11:21 BMI result Body Mass Index 25.0 Const: Other: General? awake teresa rt x 3,in no acute distress. HEENT p upil equal round r eactive to light a nd accommodation e xtraocular muscles intact Neck is au pple no JVD. CVS? regular rate rhyth m, Respiratory ted gs? clear to auscu ltation, no use of accessory muscles Gastrointestinal abdomen soft, nont mayo, bowel sound s audible Extremit ies no edema. Neur o? expressive apha kelly psych appropri ate affect Skin no rash DS: Data Data Completed and Pending Labs on day of discharge: Preliminary micro results at discharge 11/01/21 12:01 Blood Culture - Preliminary Blood - Venous No growth after 24 hours. 11/01/21 12:02 Blood Culture - Preliminary Blood - Venous No growth after 24 hours. Discharge Plan Discharge Patient Disposition: Home, Self-Care Discharge Diagnosis: Atrial fibrillation with RVR COPD exacerbation Referrals: Marce Garcai MD [Primary Care Provider] - 1 Week Discharge Medications: New cefuroxime axetil 500 mg Tablet 500 mg PO Q12H Qty: 6 0RF azithromycin 500 mg Tablet 500 mg PO Q24H Qty: 3 0RF prednisone 20 mg tablet 20 mg PO DAILY Qty: 3 0RF albuterol sulfate [Ventolin HFA] 90 mcg/actuation Hfa Aerosol Inhaler 2 puff inhalation RQ4H PRN (Reason: sob) Qty: 1 0RF Continued atorvastatin 40 mg tablet 40 mg PO BEDTIME 0RF doxazosin 4 mg tablet 4 mg PO BEDTIME 0RF multivitamin Tablet 1 tab PO DAILY@1200 0RF levothyroxine 75 mcg tablet 75 mcg PO DAILY Qty: 90 0RF Discharge Orders: Discharge Order (Routine); Ordered 11/02/21 Ordered By: Louie Kwan Diet: low fat, low cholesterol Activity on Discharge: As tolerated Stand Alone Forms: Patient Portal Discharge page Care Plan Goals: Acute COPD exacerbation due to early pneumonia take by mouth antibiotics for 3 more days in addition to prednisone for 3 more days, use albuterol MDI for shortness of breath as needed, had a brief run of atrial fibrillation with rapid ventricular response, normal TSH, not a candidate for anticoagulation due to intraparenchymal bleed, have soft blood pressures therefore recommend outpatient follow-up with Cardiology, cardiology service will call for appointment Dr. Phillips notified. Health Concerns: COPD not on home inhalers, hyperlipidemia continue home medications as before Plan of Treatment: Outpatient follow-up with primary care physician and Cardiology Dr. Phillips for brief episode of atrial fibrillation with RVR Assessment: As per discharge summary
--- NOTE | 2021-11-02 15:47 | MHC.CM.PN ---
IMM 11/02/21 Female 71 DX CP She is discharged to home today. No home services have been ordered. Family providing transportation home.
== END 2021-11-02 16:38 | disposition home or self-care (01) | DRG 193 ==
LOC: HO.ED 12:57 → HO.EDOVER 15:31 → HO.IMC 19:27
PROVIDERS: Admitting Provider Hospitalist; Emergency Provider Emergency Medicine; PCP Internal Medicine; Visit Provider Hospitalist
DX: J18.9 Pneumonia, unspecified organism (principal); J96.01 Acute respiratory failure with hypoxia; J44.0 Chronic obstructive pulmonary disease with (acute) lower respiratory infection; J44.1 Chronic obstructive pulmonary disease with (acute) exacerbation; E78.5 Hyperlipidemia, unspecified; I10 Essential (primary) hypertension; I69.120 Aphasia following nontraumatic intracerebral hemorrhage; E03.9 Hypothyroidism, unspecified; I48.91 Unspecified atrial fibrillation; Z20.822 Contact with and (suspected) exposure to COVID-19; Z86.73 Personal history of transient ischemic attack (TIA), and cerebral infarction without residual deficits; Z87.891 Personal history of nicotine dependence; Z79.52 Long term (current) use of systemic steroids; Z79.890 Hormone replacement therapy; Z79.899 Other long term (current) drug therapy
CPT/HCPCS: 36415; 71045; 80048; 80076; 82803; 83605; 83690; 83735; 83880; 84484; 85025; 87040; 87147; 87205; 87635; 93005; 94640; 96365; 96366; 96367; 96375; 99285; J0456; J0696; J2920; J2930

== ENCOUNTER → 2021-11-09 07:23 | Outpatient (REF) | payer MEDICARE, SELFPAY ==
--- NOTE | 2021-11-09 07:26 | HM_ITS ---
Conclusion: 1. Patient was monitored for total period of 3 days and 1 hour 2. Baseline was normal sinus rhythm with average heart rate 63 beats per minute 3. No significant pauses or bradycardia 4. Frequent short burst of supraventricular arrhythmia consistent with either atrial tachycardia or ectopic atrial rhythm, noted longest lasting 35 beats consistent with ectopic atrial rhythm 5. Total 54,640 PACs accounting for 19.7% of total beats accounting for very frequent PACs 6. No patient reported events MTDD
== END ==
LOC: HO.CARD 07:23
PROVIDERS: PCP Internal Medicine; Visit Provider Internal Medicine Cardiovascular Disease
DX: R00.2 Palpitations (principal); R06.00 Dyspnea, unspecified
CPT/HCPCS: 93242

== ENCOUNTER → 2021-11-21 07:19 | Outpatient (REF) | payer MEDICARE, SELFPAY ==
--- NOTE | 2021-11-21 07:31 | CA_ITS ---
Transthoracic Echocardiogram Patient (Last, First, Middle): Christina Castillo, Gender: Female Date of : 1950 Age: 71 Procedure Date: 11/21/2021 Procedure Type: Transthoracic Echocardiogram Location: OP Height: 167.64 cm Weight: 72.58 kg BSA: 1.82 m2 Heart Rate: bpm BP: 130 / 70 mmHg Patient Navigator: GARFIELD Referring MD: Chance Antonio MD Symptoms: R06.00 - Dyspnea, unspecified Study Quality: Good ECG Rhythm: Bradycardia Conclusions: - The left ventricular systolic function is normal. The calculated ejection fraction is 64% by biplane method. - LV peak GLS -19.7%. - Evidence suggests grade II (moderate) diastolic dysfunction. - The left atrium is severely dilated. - No obvious valvular pathology seen on this study. Findings Left Ventricle Normal left ventricular cavity size. There is normal left ventricular wall thickness. The left ventricular systolic function is normal. The calculated ejection fraction is 64% by biplane method. There is no evidence of regional wall motion abnormalities. E/E prime ratio is between 8 and 15 consistent with indeterminate filling pressures. Evidence suggests grade II (moderate) diastolic dysfunction. LV peak GLS -19.7%. Right Ventricle Normal right ventricular cavity size and systolic function. Atria The left atrium is severely dilated. The right atrium is normal in size. Aortic Valve There is a normal trileaflet aortic valve. There is mild calcification of the aortic valve. There is no aortic valve stenosis. There is no aortic valve regurgitation. Mitral Valve There is mild posterior mitral leaflet thickening. There is trace mitral valve regurgitation. There is no mitral valve stenosis. Pulmonic Valve The pulmonic valve is likely normal. Tricuspid Valve Normal tricuspid valve structure. There is trace tricuspid valve regurgitation. There is no evidence of pulmonary hypertension. Great Vessels The aortic annulus, sinuses of valsalva, and asc aorta are normal in size. Venous The inferior vena cava is normal in size and collapses greater than 50% with inspiration. Pericardium/Pleural There is no evidence of pericardial effusion. Prior Study Comparison Changes noted compared to prior study dated: 08/02/2014. Increase in left atrial size. Progression of diastolic dysfunction. Recommendations, Care & Conclusions No obvious valvular pathology seen on this study. Measurements 2D Linear Measurements IVSd: 0.66 0.6-0.9/0.6-1.0 cm LVIDd: 5.12 3.9-5.3/4.2-5.9 cm LVIDd Index: 2.81 2.4-3.2/2.2-3.1 cm/m2 LVIDs: 3.07 2.0-3.6 cm LVPWd: 0.81 0.7-1.1 cm Ao Root: 2.90 2.1-3.5 cm LA Diam: 4.30 2.7-3.8/3.0-4.0 cm LAIDs Index: 2.36 1.5-2.3 cm/m2 LV Mass: 157.24 67-162/88-224 g LV Mass Index: 86.40 43-95/49-115 g/m2 LVOT Diam: 2.00 3.0+(-)1.3 cm 2D Systolic Function EF 4C: 54.90 >55% EF 2C: 70.20 >55% EF BiP: 63.50 >55% Mitral Valve MV Pk E: 0.93 MV PK A: 0.81 MV Decel Time: 137.00 E/A: 1.10 E'Lateral: 8.11 E'Medial: 5.76 E/E' Med: 16.10 E/E' Lat: 11.50 Aortic Valve AoV Pk Joo: 1.59 AoV Mn Joo: 1.10 AoV VTI: 0.40 AoV Pk Grad: 10.00 Aov Mn Grad: 6.00 MARY LOU Cont.VTI: 2.50 LVOT LVOT Pk Joo: 1.30 LVOT Mn Joo: 0.86 LVOT VTI: 0.32 LVOT Pk Grad: 7.00 LVOT Mn Grad: 4.00 LVOT Diam: 2.00 LVOT Area: 3.14 Diastolic Function MV Pk E: 0.93 MV Pk A: 0.81 E/A: 1.10 E'Medial: 5.76 E/E' Med: 16.10 E' Laterial: 8.11 E/E' Lat: 11.50 Right Ventricle TAPSE (mm): 25.20 TVS' Joo: 16.30 Tricuspid Valve TR Pk Joo: 2.65 TR Pk Grad: 33.00 RA Press: 8.00 Great Vessels Aorta Ao Root-2D: 2.90 2.0-3.7 cm Sinus of Valsalva: 2.90 2.0-3.5 cm Ao Asc: 3.60 2.1-3.4 cm Pulmonary Veins Pulm Vein S/D 1.30 Pulmonary Valve PV Pk Joo: 1.01 Peak PV Grad: 4.00 Updated in Other Vendor System with Status of Final Oscar Roper MD electronically signed on 11/22/2021 5:02:14 PM with status of Final
== END ==
LOC: HO.CARD 07:19
PROVIDERS: PCP Internal Medicine; Visit Provider Internal Medicine Cardiovascular Disease
DX: R06.00 Dyspnea, unspecified (principal); R00.2 Palpitations
CPT/HCPCS: 93306; 93356

== ENCOUNTER → 2021-12-06 14:14 | Outpatient (BNVA) | payer MEDICARE, SELFPAY | PROVIDERS: PCP Internal Medicine; Referring Provider Internal Medicine; Visit Provider Internal Medicine Cardiovascular Disease | DX: I49.8 Other specified cardiac arrhythmias (principal); I48.0 Paroxysmal atrial fibrillation; J44.9 Chronic obstructive pulmonary disease, unspecified | CPT/HCPCS: 99202 ==

== ENCOUNTER 2022-01-15 08:18 | Outpatient (REF) | payer MEDICARE, SELFPAY ==
[2022-01-15 11:42] LABS: Alanine Aminotransferase 16 U/L (0-31); Albumin Level 4.3 g/dL (3.5-5.0); Alkaline Phosphatase 78 U/L (39-117); Anion Gap 12 (12-20); Aspartate Amino Transferase 17 U/L (5-31); Bilirubin Total 0.6 mg/dL (0.0-1.0); Blood Urea Nitrogen 15 mg/dL (9-16); Carbon Dioxide 26 mmol/L (22-29); Chloride 106 mmol/L (96-108); Cholesterol 184 mg/dL; Estimated Glomerular Filt Rate > 60; Glucose Fasting 101 mg/dL (60-99); HDL Cholesterol 57 mg/dL; LDL Cholesterol Calculated 112 mg/dl; Potassium 4.2 mmol/L (3.3-5.1); Sodium 140 mmol/L (135-145); Total Protein 6.7 g/dL (6.5-8.0); Triglycerides 78 mg/dL
[2022-01-15 11:53] LABS: TSH reflex Free T4 0.86 uIU/mL (0.32-4.0)
== END 2022-01-15 08:19 | disposition home or self-care (01) ==
LOC: HO.HMGCLDS 08:18
PROVIDERS: PCP Internal Medicine; Visit Provider Internal Medicine
DX: I10 Essential (primary) hypertension (principal); E78.5 Hyperlipidemia, unspecified; E03.9 Hypothyroidism, unspecified
CPT/HCPCS: 36415; 80053; 80061; 84443

== ENCOUNTER 2022-02-05 08:48 | Outpatient (REF) | payer MEDICARE, SELFPAY ==
--- NOTE | ~2022-02-05 | CT_ITS ---
EXAMINATION: CT CHEST WITHOUT CONTRAST CLINICAL INFORMATION: COPD COMPARISON: Previous chest x-ray most recent October [address] July 2020 and August 2014 TECHNIQUE: Multidetector volumetric CT imaging of the chest was done. Axial MIP volume rendering provided. Sagittal and coronal reformatted images were obtained. This CT examination was performed using dose optimization techniques as appropriate, variously including the following: *Automated exposure control *Adjustment of mA and/or kV according to patient size (this includes techniques or standardized protocols for targeted exams where dose is matched to indication/reason for exam; i.e. extremities or head) *Use of iterative reconstruction technique DLP: 84 mGy-cm FINDINGS: WHEEL ALIGNMENT TECHNICIAN: Unremarkable LUNGS: There is new subsegmental atelectasis or small infiltrate in the anterior segment of the right upper lobe and medial segment of the right middle lobe. There are several adjacent clustered peribronchial small nodules in the right middle lobe. Largest nodule is a 4 mm right middle lobe nodule axial image 326 series 5. This is new or increased compared to previous exam. There is a 3 mm right lower lobe nodule axial image 438 series 5. This is stable. The lungs are otherwise clear. There is evidence of emphysema. No endotracheal lesion is seen. MEDIASTINUM: There is mild coronary artery and aortic valve calcification. The mediastinum is otherwise normal. PLEURA: There is no pleural effusion. No pleural mass or thickening. AXILLA: No lymphadenopathy. UPPER ABDOMEN: There are left renal cysts. OSSEOUS STRUCTURES: There are degenerative changes of the spine. There is a mild T4 vertebral body compression fracture. This is new in the interval from 2020 exam. There is a mild T7 vertebral body compression fracture versus Schmorl's node and fracture of the proximal sternum that appears unchanged. CT/CT chest wo con IMPRESSION: Emphysema. New subsegmental atelectasis or small infiltrate and probable airways disease in the anterior segment of the right upper lobe and medial segment of the right middle lobe. Stable 3 mm right lower lobe nodule. Coronary artery and aortic valve calcification. Mild T4 vertebral body compression fracture new in the interval from 2020 exam. Old sternal fracture and mild T7 vertebral body compression fracture versus Schmorl's node unchanged from previous exam. Fleischner guidelines were followed.
== END 2022-02-05 08:49 | disposition home or self-care (01) ==
LOC: HO.CT 08:48
PROVIDERS: PCP Internal Medicine; Visit Provider Internal Medicine
DX: J44.9 Chronic obstructive pulmonary disease, unspecified (principal); F17.200 Nicotine dependence, unspecified, uncomplicated
CPT/HCPCS: 71250

== ENCOUNTER 2022-04-03 09:43 | Outpatient (REF) | payer MEDICARE, SELFPAY ==
--- NOTE | ~2022-04-03 | MM_ITS ---
EXAMINATION: MM SCREENING DIGITAL BREAST TOMOSYNTHESIS, BILATERAL CLINICAL INFORMATION: Screening. Asymptomatic. Ultrasound-guided biopsy right breast 2020 (fragments of cyst wall with reactive lymphoid aggregate, benign breast tissue with adenosis, no atypia). The lifetime risk of breast cancer based on the Tyrer-Cuzick Model is 4%. COMPARISON: Mammography: 03/24/2021, 10/28/2020, 10/24/2020, 11/16/2014 TECHNIQUE: Digital breast tomosynthesis is performed in both the craniocaudal and mediolateral oblique views along with computer-aided detection (CAD). Synthesized 2D images are generated from the tomosynthesis. FINDINGS: There are scattered areas of fibroglandular density (ACR BI-RADS breast composition Category b). There are no significant masses, abnormal calcifications, or other abnormalities. Biopsy clip marker mid upper outer right breast breast. No developing density. The axilla and skin contours are unremarkable. MM/MM tomosynthesis screening BI IMPRESSION: No mammographic evidence of malignancy. ASSESSMENT: BI-RADS 1: Negative RECOMMENDATION: Routine annual mammography screening. This patient's information was entered into a reminder system with a target due date for their next mammogram.
== END 2022-04-03 09:44 | disposition home or self-care (01) ==
LOC: HO.MAMMO 09:43
PROVIDERS: PCP Internal Medicine; Visit Provider Internal Medicine
DX: Z12.31 Encounter for screening mammogram for malignant neoplasm of breast (principal)
CPT/HCPCS: 77063; 77067

== ENCOUNTER → 2022-06-14 12:18 | Outpatient (BNVA) | payer MEDICARE, SELFPAY | PROVIDERS: PCP Internal Medicine; Referring Provider Internal Medicine; Visit Provider Internal Medicine Cardiovascular Disease | DX: I49.8 Other specified cardiac arrhythmias (principal) | CPT/HCPCS: 93005; 99212 ==

== ENCOUNTER 2022-12-06 09:00 | Outpatient (RCR) | payer MEDICARE, SELFPAY ==
--- NOTE | 2021-10-19 11:26 | MHC.SP.ADU ---
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 Sukhdeep Castillo. Background information included in this report was provided by the patient herself and review of past medical documentation. She was referred for a speech-language evaluation by her primary care physician, Marce Garcia MD. 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 Patient lives at home with her sister. On 06/29/21 patient was brought to the ED at [facility] after a fall. She was found to have ?3 cm intraparenchymal basal ganglia hemorrhage with bleeding into the lateral ventricle, minimal midline shift.? She was subsequently transferred to [facility], where patient reports she spent 10 days in the ICU and 10 days on the general floor. After her inpatient stay, patient continued rehabilitation services though [facility], including speech therapy, physical therapy, and occupational therapy. Patient reports difficulties in the following areas of communication and cognition: difficulty expressing thoughts, orientation/memory, problem solving, focusing/attention, finding words, fluency. Head CT 06/29/21: ?1. Intraparenchymal hemorrhage which appears centered in the left basal ganglia measuring approximately 3 cm in diameter, with extension into the adjacent left lateral ventricle. Mild localized mass effect and slight rightward midline shift. 2. No acute findings identified in the cervical spine.? Head CT 08/03/21: ?Resolving hematoma left basal ganglia with decreased mass effect. However the lateral ventricles are slightly prominent likely secondary to decreased edema. There is no change in chronic small vessel ischemic changes in both cerebral hemispheres. ? 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 Other Therapies Seen in Current Calendar Year: Occupational Therapy, Physical Therapy, Speech Therapy Reported Speech, Language, Cognition difficulties: Attention, Memory, Cognition, Speaking Assessment Speech Production: Aphasic: Nonfluent Clinical Impression: Impaired Observations: Patient's speech was clear and 100% intelligible to the clinician. She presents with a moderate expressive aphasia characterized by word finding difficulty. Informal Voice Assessment: Voice Loudness: Normal Voice Nasal Resonance: Normal Voice Oral Resonance: Normal Voice Phonatory-based Quality: Normal Voice Pitch: Normal Clinical Impression: Intact Clinicial Observations: Patient's vocal quality, volume, and pitch is perceptually judged to be within functional limits based on patient's age and gender. Tests of Speech & Lang Adults: BDAE BNT Clinical Impression: Impaired Observations: Patient was administered the Auditory Comprehension, Oral Expression, Reading and Writing subtests of the [place] Diagnostic Aphasia Examination (BDAE). The BDAE is an assessment used to evaluate for receptive and expressive aphasia in individuals 16 years and older. Her performance is summarized below: RECEPTIVE LANGUAGE: -Patient followed single step commands without difficulty. -During a basic word discrimination task, patient identified the line image which best depicted the word spoken by the clinician from a choice of 4 in 14 out of 16 trials. -Patient followed multistep and complex directions: 10/10 correct -Patient correctly answered yes/no questions about ideational material in 2 out of 2 trials and about short stories read aloud for her in 3/4 trials. EXPRESSIVE LANGUAGE: -Patient generated the days of the week and counted to 21, demonstrating intact automatic speech: 4/4 score -Patient repeated single words correctly in 5 out of 5 trials and complete sentences in 2 out of 2 trials, indicating that her repetition of words and sentences is intact. -Patient responded appropriately to responsive naming questions in 5 out of 5 trials after a short time delay, receiving a 9/10 score. Patient presents with word finding difficulty. -Patient correctly named ?special categories,? which included letters, numbers, and colors in 10 out of 12 trials. Patient exhibited difficulty naming colors and numbers. *Patient was administered the [place] Naming Test (BNT) in its entirety. She was presented with a line image, and was instructed to name that image with one word. Patient correctly named 29 out of 60 images. She demonstrated frequent use of semantic paraphasias, naming items with related, but off target labels. For example, she named asparagus as ?broccoli,? hammock as ?sleeping bag,? cactus as ?tree,? rhinoceros as ?elephant,? blue [place] as ?mouse,? bag hanger as ?broom.? Patient was not always aware of her errors, as such she did not often self-correct unless prompted with a forced choice. When given a choice of 4 possible answers, patient selected the correct one most of the time. Encouragingly, patient was often able to describe target words, which she appeared to do as a compensatory strategy. For example, when presented with an image of the target word ?tripod,? she stated ?It holds something up.? Although patient exhibited significant difficulty naming items during confrontational naming tasks, she demonstrated improved fluency in connected speech. When describing the [employer] image, patient used complete sentences with appropriate syntax, and demonstrated minimal word finding difficulty. Patient?s word finding difficulties are more apparent in structured tasks than in conversational speech. READING: -Patient was able to match letters across cases and scripts, demonstrating basic symbol recognition- 4/4 correct -Patient was able to match numbers to fingers and dot patterns- 4/4 correct -Patient exhibited difficulty matching pictures to written words. She matched images to words that were related, but off-target. For example she matched the clock image to ?watch,? and binocular image to ?telescope? - 2/4 correct -Patient read aloud single words within 0-5 seconds, demonstrating basic oral word reading- 15/15 -Patient read aloud sentences without error in 5 out of 5 trials. Patient answered comprehension questions correctly after a short time delay in 2 out of 3 trials. -Patient read aloud sentences and paragraphs and selected the completion from a choice of 4 without assistance- 4/4 correct WRITING: -Patient was able to print and sign her name -Patient was able to write dictated letters -Patient was able to write numbers 1-10 -Patient was able to write dictated numbers -Patient wrote primer words (i.e. cat; run; go; dog) and words with regular phonics (i.e. flag) without error (4/4; 2/2 correct). Spelling errors noted when patient wrote common irregular forms (i.e. cough)(2/3 correct). Tests of Cognition: CLQT Clinical Impression: Impaired Observations: Patient was administered the Cognitive Linguistic Quick Test (CLQT). The CLQT is a criterion-referenced assessment used to gain information about an individual?s relative strengths and weaknesses and to identify deficits in cognitive-linguistic skills in individuals aged 18-89 years old. The CLQT generates severity ratings in the following five cognitive domains: Attention, Memory, Language, Executive Functions, and Visuospatial Skills. Patient?s performance on the CLQT is displayed below: Task: Criterion Cut Score, Patient?s Score, Interpretation Personal Facts: 8, 7, Below Average Symbol Cancellation: 10, 6, Below Average Confrontational Namin, 10, Within Functional Limits Clock Drawin, 9, Below Average Story Retellin, 4, Below Average Symbol Trails: 6, 8, Within Functional Limits Generative Namin, 3, Below Average Design Memory: 4, 6, Within Functional Limits Mazes: 4, 4, Within Functional Limits Design Generation: 5, 6, Within Functional Limits Task scores were summed together based on cognitive domain. Cognitive Domain scores are as follows: Cognitive Domain: Domain Score, Severity Range, Severity Rating Attention: 120, Mild, 3 Memory: 136, Mild, 3 Executive Functions: 21, Within Functional Limits, 4 Language: 24, Moderate, 2 Visuospatial Skills: 70, Within Functional Limits, 4 Patient?s Composite Severity Rating of 3.2 is interpreted as a MILD COGNITIVE LINGUISTIC IMPAIRMENT according to her performance on this assessment measure. Attention skills include the ability to maintain attention over time, selectively disengage from one task to engage in a new one, and the ability to coordinate the demands of multiple tasks (Bakari-Chantal, 2001). Patient was able to attend to simple, short tasks but exhibited some difficulty coordinating the demands of multiple tasks at once. Patient frequently asked for models and multiple repetitions of task instructions after a time delay when completing the CLQT and throughout this entire assessment. Patient demonstrated mildly impaired memory skills according to her performance on the CLQT. Memory is a complex process that includes the ability to attend to, process, retain, store, and retrieve information (Bakari-Chantal, 2001). Patient was able to recall design shapes (immediate recall of new visual information) and accurately retrieve most information about personal facts (integrity of previously stored information), though she did not correctly state her age when asked. She exhibited some difficulty immediately recalling details about a story verbally presented by the clinician (immediate recall of new information presented in a paragraph). As previously stated, after a short time delay patient exhibited difficulty recalling task instructions. Patient completed tasks that assessed her ability to plan, sequence, implement, and accomplish goal-directed activities in flexible manner, taking into consideration situational and environmental changes (Honorio, 2001). When planning a route to complete a maze, she was observed to change paths several times, but ultimately completed the task within the time constraint. It was noted that during the design generation activity, patient perseverated on her designs, copied example designs generated by the clinician, and snehal designs with 3-5 lines rather than four. Individuals with typical neurological cognitive-linguistic skills typically generate more designs by creating a pattern in alternating positions of the designs. This reflects reduced flexibility in the generation of new designs or ideas. Patient demonstrated a moderate impairment in her language skills based on her performance on the CLQT. Patient presents with strengths in her receptive language abilities, as she correctly answered WH- and yes/no questions. Notably, she exhibited difficulty with generative naming tasks, especially when faced with the pressure of a time constraint. Visuospatial skills include the ability to scan, discriminate, analyze, and interpret visual information (Honorio, 2001). Patient exhibited difficulty remembering a symbol and distinguishing it from a visual field that included several other symbols (symbol cancellation task). Patient?s difficulty with this task is likely in part attributed to her difficulty remembering complex instructions. She was able to recall designs to choose the one she had studied in a choice of six (design memory task), and draw lines between alternating shapes of different sizes. Patient was reminded of task instructions and was provided with examples, as permitted by test administration guidelines. Impressions and Recommendations Summary: Impact on Daily Function/Activity Limitations: Daily Activities: Mild Interpersonal Interactions: Moderate Education: Employment: Community: Mild Prognosis for Improvement: Good Based on results of this assessment, patient presents with a moderate expressive aphasia characterized by word finding difficulty; and a mild cognitive linguistic impairment marked by difficulties in the areas of attention and memory. Recommend patient to participate in 12 weekly individualized speech therapy visits with goals targeting word finding, attention, and memory. Recommendation for Speech Therapy: Outpatient Speech Therapy Frequency/Duration: 1x weekly x 12 weeks Time to Reassess: 6 months [facility] Goals: 1.) Patient will improve her performance on an expressive naming probe to 80% accuracy and minimal assistance. 2.) Patient will utilize a variety of word-finding strategies at the conversational level with minimal assistance in >80% opportunities presented to her. 3.) Patient will improve her ability to employ mental flexibility when solving complex problems. 4.) Patient will utilize compensatory strategies to assist short-term memory Short Term Goals: Goal # : 1.1.Patient will identify a category given members in 4 out of 5 trials with minimal assistance. 1.2.Patient will identify a target word when provided with 3-4 related words or phrases in a word deduction task with 80% accuracy and minimal verbal assistance. Goal Status: New Goal Goal# : 2.1.Patient will utilize Semantic Feature cues (i.e. category, use, function, physical components, association, location) to describe items to a listener successfully in 80% of opportunities with visual support (chart). Goal Status: New Goal Goal # : 3.1.Patient will demonstrate mental flexibility by identifying 2 possible solutions to safety situations in 80% of trials with minimal assistance. Goal Status: New Goal Goal # : 4.1.Patient will listen to auditory information (i.e. voicemail, ads, instructions for medication dosage, invitations) and make note of pertinent information in 80% of opportunities with minimal verbal cues. 4.2.Patient will use compensatory strategies (visualization, verbal rehearsal, writing notes, etc) to recall 4 item grocery lists with 80% accuracy and 1-2 repetitions. 4.3.Patient will recite 4 word lists presented to her verbally in reverse order with 80% accuracy and 1-2 repetitions. Goal Status: New Goal Recommended Referrals to be Discussed with Primary Care Provider: Neurology Patient Education: Completed: Yes Patient/Caregiver Education: Described Results of Evaluation Patient expressed understanding of evaluation Family/Caregivers expressed understanding of results Comments/Barriers to Learning: Manager Strategy & Account Clinican/Clinical Fellow: No Supervisory Statement: N/A Speech Language Pathologist: Carlotta Taveras M.A., CCC-NEWSPAPER PRESS OPERATOR APPRENTICE
--- NOTE | 2022-09-05 14:02 | MHC.SL.SOA ---
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 Patient?s speech evaluation in September 2021 revealed a moderate expressive aphasia characterized by word finding difficulty; and a mild cognitive linguistic impairment marked by difficulties in the areas of attention and memory. 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 On 06/29/21 patient was brought to the ED at [facility] after a fall. She was found to have ?3 cm intraparenchymal basal ganglia hemorrhage with bleeding into the lateral ventricle, minimal midline shift.? She was subsequently transferred to [facility], where patient reports she spent 10 days in the ICU and 10 days on the general floor. After her inpatient stay, patient continued rehabilitation services though [facility], including speech therapy, physical therapy, and occupational therapy. Pt then continued speech therapy for her aphasia and cognitive difficulties on an outpatient basis. Head CT 06/29/21: ?1. Intraparenchymal hemorrhage which appears centered in the left basal ganglia measuring approximately 3 cm in diameter, with extension into the adjacent left lateral ventricle. Mild localized mass effect and slight rightward midline shift. 2. No acute findings identified in the cervical spine.? Head CT 08/03/21: ?Resolving hematoma left basal ganglia with decreased mass effect. However the lateral ventricles are slightly prominent likely secondary to decreased edema. There is no change in chronic small vessel ischemic changes in both cerebral hemispheres. ? Objective: 1.1.Patient will identify a category given members in 4 out of 5 trials with minimal assistance. 1.1 OBJECTIVE CONTINUED: Patient required mild to moderate prompting to sort and label categories. Plan to continue this objective. 1.2.Patient will identify a target word when provided with 3-4 related words or phrases in a word deduction task with 80% accuracy and minimal verbal assistance. 1.2 OBJECTIVE MET: Pt named 15/15 objects in a contextualized image when provided with minimal assistance and identified 15/15 objects when provided with a brief verbal description of their function. 2.1.Patient will utilize Semantic Feature cues (i.e. category, use, function, physical components, association, location) to describe items to a listener successfully in 80% of opportunities with visual support (chart). 2.1 OBJECTIVE MET: Pt described 3-4 details about a given word in 15/15 trials when provided with minimal verbal cues during a highly structured task. To increase difficulty of the task, pt was instructed to avoid 5 salient words when forming her description. Pt completed this task successfully. Pt was observed to also use gestures to supplement her word descriptions (i.e. motion of using a yo-yo). 3.1.Patient will demonstrate mental flexibility by identifying 2 possible solutions to safety situations in 80% of trials with minimal assistance. 3.1 OBJECTIVE MET: Pt demonstrated mental flexibility by identifying at least 2 possible solutions to various scenarios in >80% of trials when provided with minimal verbal cues. 4.1.Patient will listen to auditory information (i.e. voicemail, ads, instructions for medication dosage, invitations) and make note of pertinent information in 80% of opportunities with minimal verbal cues. 4.1 OBJECTIVE CONTINUED: Patient answered WH-questions about information verbally presented in a paragraph. Pt answered open ended questions with 72% accuracy and multiple choice questions with 77% accuracy when provided with moderate level assistance. Pt listened to paragraphs read aloud for her. Pt requested the paragraph to be re-read 1-2x times. Pt was observed to summarize the paragraph and list adams facts from the paragraph before answering questions. Pt exhibited difficulty recalling information when asked open ended questions. Pt often selected the correct answer when asked multiple choice questions. 4.2.Patient will use compensatory strategies (visualization, verbal rehearsal, writing notes, etc) to recall 4 item grocery lists with 80% accuracy and 1-2 repetitions. 4.2 OBJECTIVE CONTINUED: Patient used the chaining strategy (i.e. discussing associations connecting each word in the list) to recall 4-5 word lists with 82% accuracy and minimal to moderate assistance. 4.3.Patient will recite 4 word lists presented to her verbally in reverse order with 80% accuracy and 1-2 repetitions. 4.3. OBJECTIVE CONTINUED: Patient listened to 4-5 word lists presented to her verbally. She then answered WH-questions related to word placement, attribute, and category exclusion when provided with moderate level assistance: -Word placement ( What was the second to last word? ): 76% accurate -Attribute ( Which is the loudest? ): 79% accurate -Category Exclusion ( Which ones are not plants? ): 85% accurateaccuracy and 1-2 repetitions. Assessment: Patient?s cognitive linguistic skills were evaluated on 07/05/22 using the RBANS: The Repeatable Battery for the Assessment of Neuropsychological Status (RBANS-Updated Form A). The RBANS assesses aspects of cognitive memory, language, and attention skills. The RBANS is considered a screening battery for cognitive function used with adolescents and adults, ages 12 to 89 years. Composite domains assessed in this evaluation are: Immediate Memory, Visuospatial/Constructional, Language, Attention, and Delayed Memory. Assessed domains and their scores are summarized below: Immediate Memory: This subtest assesses the patient?s ability to remember a small amount of information immediately after it is presented. Pt was presented with a list of 10 spoken words. Pt correctly recalled 3-4 items from the list of 10 after several repetitions of the word list. After listening to a spoken paragraph, pt recalled 4-5 out of 12 details from the story. Index score: 61 Interpretation: Extremely Low Visuospatial/Constructional: This subtest assesses the patient?s visuospatial skills and perception of spatial relationships. Patient was instructed to draw an accurate copy of a figure presented to her. Pt copied this image and included all components of the drawing. Pt?s drawing had some errors in placement. Pt was also able to identify lines that matched based on orientation and placement. Visuo-spatial skills are a relative strength for the patient. Index score: 89 Interpretation: Low Average Language: This subtest assesses the patient?s word retrieval skills. Pt correctly named line images in 6 out of 10 trials. Pt named pliers as ?screwdriver? and kite as ?umbrella.? Pt was also observed to describe items, such as trumpet as ?thing you play,? and salazar as ?the thing you aim to shoot it.? Pt was also instructed to name as many fruits and vegetables as she can in 60 seconds (semantic fluency). Pt named 7 items within the category. Pt was observed to include items which did not belong to the category, such as pancakes and pretzels. Index score: 51 Interpretation: Extremely Low Attention: This subtest assesses the patient?s capacity to remember and manipulate both visually and orally presented information in short-term memory storage. Pt was first instructed to repeat back number series that were between 2-9 digits long. Pt recalled digit series of up to 7-9 digits. Next, pt was instructed to code markings with numbers. Pt made two errors doing this and frequently referenced the adams. Attention seems to be an area of relative strength for this pt. Index score: 106 Interpretation: Average Delayed Memory: This subtest assesses the patient?s retrieval of information from long-term memory. Pt exhibited difficulty recalling information that was presented to her at the beginning of the testing period. Pt was unable to recall any items from the list verbally presented to her at the beginning of the session. Pt was then asked to recognize items by indicating whether or not a given word was on that list. Pt answered these yes/no questions correctly in 11/20 trials. Pt recalled 2 out of 12 details from a story read aloud previously. When asked to redraw the figure drawing which was previously presented to her, pt snehal the figure with increased errors in placement and missing components. Index score: 56 Interpretation: Extremely Low Karlene Arita (1998). Repeatable Battery for the Assessment of Neuropsychological Status [Manual]. [place]: Xu. Pt was also administered the Arcos Brief Inventory of Communication and Cognition on 06/21/22 to further evaluate her cognitive linguistic skills. The Complex Neuropathology Inventory (Arcos Brief Inventory of Communication and Cognition) is designed to assess attention, visual-perceptual skills, and memory components of cognition. This inventory provides a protocol for clinicians to assess skills that are important for immediate recognition and recall of auditory and visual stimuli, short-term retention of information, and delayed remote memory functions (Isrrael, 1997). Pt completed tasks organized in the following sections: Orientation and Factual Memory, Auditory Attention and Memory, Visual Perception, and Visual Attention and Memory. Her performance is displayed below: Task Raw Score Interpretation ORIENTATION AND FACTUAL MEMORY: Orientation to Person, Place, and Time: 7, Below Average Factual Current and Remote Memory: 5, Below Average AUDITORY ATTENTION AND MEMORY: Auditory Attention/Vigilance: 8, Average Immediate Auditory Recall of Digits: 10, Average (Immediate Auditory Recall of Digits Distractions: Not Administered) Immediate Auditory Recall of Functional Information: 10, Average VISUAL PERCEPTION: Color Recognition: 10, Average Picture Matchin, Average Word Matchin, Average VISUAL ATTENTION AND MEMORY: Functional Short-Term Recognition: 8, Average Short-term Recognition of Pictures: 4, Below Average Short-term Recognition of Words: 2, Below Average Divided Visual Attention: 8, Average Delayed Recognition of Pictures: 10, Average Delayed Recognition of Words: 0, Below Average Pt correctly answered most questions related to current memory, demonstrating that she was oriented to person, place, and situation. Pt incorrectly stated the date as June 19. Pt was able to describe who the clinician was, which city we were in, and the next month. Pt was also able to recall facts related to current and remote events (i.e. naming the current president, naming the president during the Civil War, etc.) when provided with semantic cues (i.e. ?President Zenobia?? for ?President Dontrell?). When asked to name a football team, pt named a basketball team instead (i.e. ?[employer]?) and did not appear aware of this error. Pt?s performance on tasks targeting orientation and factual memory falls below the typical range. Pt was able to attend to and repeat number series of 2-5 digits without difficulty. Pt was successful in tasks targeting auditory recall of functional information. She correctly repeated house numbers, street names, and full addresses. Pt demonstrated relative strengths in her visual perceptual skills as measured by her performance on color recognition, picture matching, and word matching tasks. Pt successfully followed directions relating to color recognition, matched corresponding pictures, and matched words written in different cases. Pt was instructed to study a list of words (grocery list). This list was removed after 20 seconds and the pt was asked to recall as many items from that list depicted on the next page in drawings. Pt recalled 4 of the 5 items immediately. After a short time delay, pt was able to recognize most of these pictures, but exhibited difficulty recognizing written words from the presented list. Pt exhibited difficulties with delayed recall of words. She demonstrated strengths in her divided visual attention as she was able to inhibit the color of print to identify words. The Left Hemisphere Inventory (Arcos Brief Inventory of Communication and Cognition) is designed to screen the patient?s receptive and expressive oral and written language skills (Isrrael, 1997). Pt completed tasks organized in the following sections: Auditory Comprehension, Verbal Expression, Reading, Writing, and Numerical Reasoning. Her performance is displayed below: Task Raw Score Interpretation AUDITORY COMPREHENSION: Yes/No Questions: 10, Average Comprehension of Words and Sentences: 10, Average Comprehension of Paragraphs: 10, Average VERBAL EXPRESSION: Automatic Speech: 10, Average Verbal Repetition: 10, Average Responsive Naming- Nouns: 9, Average Responsive Naming-Verbs: 10, Average Confrontation Namin, Average READING: Oral Reading of Words and Sentences: 9, Average Reading Comprehension of Words and Sentences: 10, Average Reading Comprehension of Functional Paragraphs: 9, Average WRITING: Writing to Dictation: 8, Average Functional Writin, Average NUMERICAL REASONING: Time: 7, Below Average Money: 10, Average Calculation: 8, Average Pt demonstrated excellent numerical reasoning skills during money and calculation tasks. She accurately counted coins, and solved simple, functional math problems using a restaurant menu. Pt exhibited difficulty answering questions related to time concepts using a clock image. Pt?s performance on most tasks administered during the Left Hemisphere Inventory fell within the typical range, reflecting pt?s relative strengths in her expressive and receptive language skills. Throughout testing, pt?s difficulty with word retrieval was evident. She was observed to describe some line images rather than naming them. For example, she named theater as ?movie house.? The Right Hemisphere Inventory (Arcos Brief Inventory of Communication and Cognition) is designed to screen the patient?s attention, visuospatial skills, and understanding of abstract language forms and prosodic inflection (Isrrael, 1997). Pt completed tasks organized in the following sections: Scanning and Tracking, Visuo-Spatial Skills, Prosody and Abstract Language. Her performance is displayed below: Task Raw Score Interpretation SCANNING AND TRACKING: Functional Scanning and Trackin, Average Scanning and Tracking of Single Words: 10, Average VISUO-SPATIAL SKILLS: Functional Spatial Distribution of Attention: 10, Average Spatial Distribution of Attention: 10, Average Recognition of Familiar Faces: 10, Average Gestalt Perception: 10, Average Visuo-Spatial Construction (Clock): 10, Average Visuo-Spatial Organization for Writin, Average PROSODY AND ABSTRACT LANGUAGE: Spontaneous Expression Prosody: 10, Average Receptive Prosody: 10, Average Inferences: 9, Average Metaphorical Language: 8, Average Pt demonstrated no difficulties with scanning and tracking or visuo-spatial perception. Pt constructed a clock drawing without any difficulty. Pt interpreted most inferences and metaphors, as well as variations in tone (angry, disappointed, happy). Diane Arcos. (1997). Arcos Brief Inventory of Communication and Cognition. [facility]. Plan: Pt presents with a moderate expressive aphasia and moderate cognitive linguistic impairment with difficulties in immediate and delayed memory . Based on pt?s performance on RBANS and Arcos Inventories, the following areas of weakness were identified as possible treatment targets: word finding, immediate auditory recall (digits, addresses), delayed memory, and time concepts. It is recommended that she continue outpatient treatment once weekly x 12 sessions to work on the following goals: LT.) Patient will utilize a variety of word-finding strategies at the conversational level with minimal assistance in >80% opportunities presented to her. 2.) Patient will utilize compensatory strategies to assist short-term memory ST.1.Patient will identify a category given members in 4 out of 5 trials with minimal assistance: OBJECTIVE CONTINUED 1.2. Patient will employ circumlocution as a strategy to facilitate word retrieval in conversation in 4 out of 5 opportunities with occasional verbal cues (leading questions, reminders to utilize semantic feature analysis technique): NEW OBJECTIVE 2.1.Patient will demonstrate increased ability to independently copy relevant details (i.e. character names, time lines, main ideas) with 80% accuracy from a highlighted reading source (i.e. news articles, journal, story) after listening to an oral presentation when provided with minimal verbal reminders: NEW OBJECTIVE 2.2. Patient will answer auditory comprehension questions about functional paragraphs/narratives with 80% accuracy when provided with minimal cues across three sessions: NEW OBJECTIVE 2.3. Patient will recall a series of 5-6 digits/words verbally presented to her with 80% accuracy and minimal assistance: NEW OBJECTIVE 2.4..Patient will recite 4 word lists presented to her verbally in reverse order with 80% accuracy and 1-2 repetitions: OBJECTIVE CONTINUED 2.5. Patient will recall addresses (including house number, street, city, state) verbally presented to her by the clinician with >80% accuracy and moderate assistance: NEW OBJECTIVE 2.6. Patient will recognize pictures and words after studying a list of words and illustrations for 20 seconds. She will recognize 80% of targeted pictures/words when provided with minimal cues across three sessions: NEW OBJECTIVE 2.7. The patient will complete simple math problems (i.e. balancing a check book; time concepts) at 80% accuracy given use of calculator and/or paper and pen and intermittent moderate verbal cues: NEW OBJECTIVE Seen by: Graduate/Clinical Fellow: No Supervisory Statement: f_Reg Query Last Value , MHC[facility]AU[facility] Speech Language Pathologist: Carlotta Taveras M.A., CCC-CRYSTAL LAPPER
--- NOTE | 2022-12-06 11:44 | MHC.SL.SOA ---
Referring Provider: Marce Garcia MD Reason for Referral: Aphasia and Cognition Date of Plan of Treatment:07/05/22 Onset of Symptoms/Illness:06/29/21 Date Treatment Started:10/05/21 Medical Diagnosis: COPD (chronic obstructive pulmonary disease) HTN (hypertension) Pneumonia Postmenopausal PVD (peripheral vascular disease) Skin growth Tobacco dependence Recent basal ganglia ICH 06/29 H/O: hysterectomy Primary Speech Language Diagnosis:R47.01 Aphasia Secondary Speech Language Diagnosis:R41.841 Cognitive communication disorder Reason for Visit:92565 Individual Treatment Subjective:Pt arrived to her session on time and was unaccompanied. Pt was fully attentive for the entirety of the session. Objective: 1.1.Patient will identify a category given members in 4 out of 5 trials with minimal assistance. OBJECTIVE MET: Pt listed 5 members per category in 5/5 trials when provided with minimal verbal prompting. She named a category when provided with a list of 4 words in 10/10 trials when provided with minimal assistance. Pt named items given 4 clues (word deductions) in 13/15 trials with minimal assistance. Pt reported that these kind of activities are pleasantly challenging and fun and feels like [she] is working her brain. Pt stated she is able to think of words when [she] stops to think and describes them. 1.2. Patient will employ circumlocution as a strategy to facilitate word retrieval in conversation in 4 out of 5 opportunities with occasional verbal cues (leading questions, reminders to utilize semantic feature analysis technique) OBJECTIVE MET: Pt employed circumlocution as a strategy to facilitate word retrieval in conversation in 8/10 opportunities when provided with minimal verbal cues. Pt reports she still experiences some word finding difficulties, but does not give up and tries to describe it until [she] thinks of it. 2.1.Patient will demonstrate increased ability to independently copy relevant details (i.e. character names, time lines, main ideas) with 80% accuracy from a highlighted reading source (i.e. news articles, journal, story) after listening to an oral presentation when provided with minimal verbal reminders. 2.2. Patient will answer auditory comprehension questions about functional paragraphs/narratives with 80% accuracy when provided with minimal cues across three sessions. 2.1 &2.2 OBJECTIVES MET: Pt wrote down relevant details and highlighted adams terms independently before answering questions. Pt was also able to identify the main idea and summarize paragraphs. Pt answered true/false questions with 90% accuracy and open-ended WH-questions with 84% accuracy about functional paragraphs when provided with minimal verbal cues. 2.3. Patient will recall a series of 5-6 digits/words verbally presented to her with 80% accuracy and minimal assistance. OBJECTIVE MET: Pt recalled number series with 4-6 digits/words with 90-100% accuracy independently. Pt recalled series with 4 numbers (2 digits; i.e. [id number]) with 80% accuracy independently. To facilitate immediate recall, pt practices verbal rehearsal (repeating lists aloud to herself), uses her fingers to count, and chunks associated words in lists (i.e. peanut butter, jelly...milk, water in a grocery list). 2.4..Patient will recite 4 word lists presented to her verbally in reverse order with 80% accuracy and 1-2 repetitions. OBJECTIVE MET: Pt recited 4 word lists in reverse order with 93% accuracy and minimal assistance (request for repetition). 2.5. Patient will recall addresses (including house number, street, city, state) verbally presented to her by the clinician with >80% accuracy and moderate assistance. OBJECTIVE MET: Pt recalled addresses verbally presented to her with 86% accuracy and minimal verbal cues (request for repetition). 2.6. Patient will recognize pictures and words after studying a list of words and illustrations for 20 seconds. She will recognize 80% of targeted pictures/words when provided with minimal cues across three sessions. OBJECTIVE MET: Pt recognized grocery lists (visual; 5 items) after studying the illustration for <20 seconds in 24/24 trials when provided with minimal assistance (guidance for chaining strategy). 2.7. The patient will complete simple math problems (i.e. balancing a check book; time concepts) at 80% accuracy given use of calculator and/or paper and pen and intermittent moderate verbal cues. OBJECTIVE MET: Pt completed math word problems with 80% accuracy when provided with minimal verbal cues. To solve word problems, pt highlights adams terms, especially those associated with orders of operation (i.e. division vs. multiplication). Pt reported she has no difficulty counting change or writing out numbers. Assessment: Pt reported she feels satisfied with the progress she has made in treatment and will continue practicing these strategies on her own. She believes her speech has improved over the course of the last year since her stroke and that the memory strategies are helping her complete daily tasks. Pt reported she still forgets and mixes up certain things, such as her nephews names. Since she sees them often, she will practice writing their names down prior to visiting them, as repetition reportedly helps her. Pt stated she still notices her word mix-ups (paraphasias), but that, as long as she gives herself time and attempts to describe the word, she can usually correct herself and find the intended word on her own. Pt acknowledged that sometimes others point out these mixups for her. SILVER BUFFER and pt also discussed some proactive strategies to prevent communication breakdowns. For example, pt stated she would prefer others not to find the words for [her]. We discussed educating new individuals (i.e. assistant technician at a doctor's appointment) and even family members, on aphasia and giving communication partners some strategies for their conversations: i.e. giving pt time to reply, giving pt time to self-correct, giving clues only when requested by the pt, asking questions for clarification. Notes: Pt has met all short-term objectives. Pt to be d/c'ed from outpatient speech therapy at this time. Pt is encouraged to contact [facility] if SILVER BUFFER can be of further assistance in the future. Plan: Goal # : 1.1.Patient will identify a category given members in 4 out of 5 trials with minimal assistance. 1.2. Patient will employ circumlocution as a strategy to facilitate word retrieval in conversation in 4 out of 5 opportunities with occasional verbal cues (leading questions, reminders to utilize semantic feature analysis technique). Status of Goal: Goal Met Goal # : 2.1.Patient will demonstrate increased ability to independently copy relevant details (i.e. character names, time lines, main ideas) with 80% accuracy from a highlighted reading source (i.e. news articles, journal, story) after listening to an oral presentation when provided with minimal verbal reminders. 2.2. Patient will answer auditory comprehension questions about functional paragraphs/narratives with 80% accuracy when provided with minimal cues across three sessions. Status of Goal: Goal Met Goal # : 2.3. Patient will recall a series of 5-6 digits/words verbally presented to her with 80% accuracy and minimal assistance. 2.4..Patient will recite 4 word lists presented to her verbally in reverse order with 80% accuracy and 1-2 repetitions. 2.5. Patient will recall addresses (including house number, street, city, state) verbally presented to her by the clinician with >80% accuracy and moderate assistance. 2.6. Patient will recognize pictures and words after studying a list of words and illustrations for 20 seconds. She will recognize 80% of targeted pictures/words when provided with minimal cues across three sessions. Status of Goal: Goal Met Goal # : 2.7. The patient will complete simple math problems (i.e. balancing a check book; time concepts) at 80% accuracy given use of calculator and/or paper and pen and intermittent moderate verbal cues. Status of Goal: Goal Met Seen by: Graduate/Clinical Fellow: No Supervisory Statement: f_Reg Query Last Value , MHC.AU.[facility] Speech Language Pathologist: Carlotta Taveras M.A., CCC-SILVER BUFFER
== END 2022-12-06 13:26 | disposition home or self-care (01) ==
LOC: HO.SH 09:00
PROVIDERS: Visit Provider Internal Medicine
DX: I61.9 Nontraumatic intracerebral hemorrhage, unspecified (principal)
CPT/HCPCS: 92507; 96125

== ENCOUNTER 2023-01-15 08:25 | Outpatient (REF) | payer MEDICARE, SELFPAY ==
[2023-01-15 11:32] LABS: MANUAL DIFF FLAG NO
[2023-01-15 11:49] LABS: Basophils Absolute Auto 0.1 X10*3/uL (0.0-0.2); Basophils Percent Auto 2.1 % (0-2); Eosinophils Absolute Auto 0.2 X10*3/uL (0.0-0.4); Eosinophils Percent Auto 3.8 % (0-4); Hematocrit 40.6 % (37.0-47.0); Hemoglobin 12.9 g/dl (12.0-16.0); Imm Gran Abs Auto 0.01 X10*3/uL (0.00-0.03); Imm Gran Pct Auto 0.2 % (0.0-0.4); Lymphocytes Absolute Auto 1.5 X10*3/uL (1.2-4.9); Lymphocytes Percent Auto 31.2 % (20-40); Mean Corpuscular HGB Conc 31.8 g/dl (31.0-35.0); Mean Corpuscular Hemoglobin 28.9 pg (27.0-33.0); Mean Corpuscular Volume 90.8 fL (80.0-98.0); Mean Platelet Volume 11.2 fL (9.4-12.3); Monocytes Absolute Auto 0.5 X10*3/uL (0.1-1.2); Monocytes Percent Auto 9.5 % (2-11); Neutrophils Absolute Auto 2.5 x10*3/uL (2.0-8.3); Neutrophils Percent Auto 53.2 % (45-73); Platelet Count 266 X10*3/uL (160-400); Red Blood Count 4.47 X10*6/uL (4.20-5.50); Red Cell Distribution Width 13.4 % (11.0-16.0); White Blood Count 4.8 X10*3/uL (4.8-10.8)
[2023-01-15 12:21] LABS: Alanine Aminotransferase 46 U/L (0-31); Albumin Level 3.9 g/dL (3.5-5.0); Alkaline Phosphatase 91 U/L (39-117); Anion Gap 10 (12-20); Aspartate Amino Transferase 38 U/L (5-31); Bilirubin Total 0.7 mg/dL (0.0-1.0); Blood Urea Nitrogen 16 mg/dL (9-16); Calcium 9.4 mg/dL (8.4-10.2); Carbon Dioxide 26 mmol/L (22-29); Chloride 108 mmol/L (96-108); Cholesterol 175 mg/dL; Estimated Glomerular Filt Rate > 60; Glucose Fasting 92 mg/dL (60-99); HDL Cholesterol 63 mg/dL; LDL Cholesterol Calculated 99 mg/dl; Potassium 3.8 mmol/L (3.3-5.1); Sodium 140 mmol/L (135-145); TSH reflex Free T4 0.88 uIU/mL (0.32-4.0); Total Protein 6.5 g/dL (6.5-8.0); Triglycerides 65 mg/dL; Vitamin D 25-OH Total 34.4 ng/mL (>30)
== END 2023-01-15 08:26 | disposition home or self-care (01) ==
LOC: HO.HMGCLDS 08:25
PROVIDERS: PCP Internal Medicine; Visit Provider Internal Medicine
DX: E03.9 Hypothyroidism, unspecified (principal); E55.9 Vitamin D deficiency, unspecified; E78.5 Hyperlipidemia, unspecified; I10 Essential (primary) hypertension
CPT/HCPCS: 36415; 80053; 80061; 82306; 84443; 85025

== ENCOUNTER 2023-01-16 10:07 | Outpatient (AMB) | payer MEDICARE, SELFPAY ==
--- NOTE | 2023-01-16 10:27 | MHC.PC.OV ---
Vital Signs 01/16/23 10:28 Height 5 ft 6 in Weight 157 lb BMI 25.3 BP 120/80 Blood Pressure Location Lt brachial Position Sitting Pulse 62 Pulse Source Pulse Oximeter Pulse Oximetry (%) 100 Oxygen Delivery Method Room Air Intake Visit Reasons: 6M follow up Intake Note: Pt is here today for 6 months follow up visit. Allergies No Known Allergies [No Known Allergies*] Allergy (Unknown, Verified 01/16/23 10:36) Tobacco use date assessed: 01/16/23 Fall risk assessment: No Falls in past year Last assessed Fall Risk: 01/16/23 Dental Screening Dental Screen Date: 01/16/23 Did you have a dental visit in the last 12 months?: Yes Did you have a dental problem in the last 6 months where you did not have access to dental care?: No Was dental information given to patient?: Patient has dentist HPI 6M follow up HPI Details Pt presents for HTN, hyperlipid, COPD, stable on meds. Pt will have colonoscopy for positive in January. [facility] Medical History (Updated 07/18/22 @ 10:46 by Marce Garcia MD) A-fib Annual physical exam Breast mass COPD (chronic obstructive pulmonary disease) CVA (cerebrovascular accident due to intracerebral hemorrhage) HTN (hypertension) Hyperlipidemia Hypothyroidism Pneumonia Postmenopausal PVD (peripheral vascular disease) Skin growth Tobacco dependence Surgical History H/O: hysterectomy Family History (Updated 01/16/23 @ 10:37 by Page Paredes [facility]) Mother Heart problem Father Adenocarcinoma Substance use disorder Sister Myocardial infarct Social History Household Members: Family Household Members Other:: Lives with sister, never , walks daily Housing: House Alcohol intake: never Patient Tobacco Use Status: Former Tobacco user Quit Date: MAY 2021 e-Cigarette/Vaping Use: Never Used service: No Current occupational status: retired Cognitive needs: No Hearing needs: No Vision needs: No Questionnaire Thrive Questionnaire Date Thrive assessed: 07/18/22 AUDIT C Alcohol Use Questionnaire (AUDIT-C) 1. How often do you have a drink containing alcohol?: Never 3. How often do you have six or more drinks on one occasion?: Never Total Score: 0 TALA-7 AMB Questionnaire TALA-7 Date TALA - 7 assessed: 07/18/22 Source: Developed by DrsBrent Damian, Sharon Betancur, Sam Payton and colleagues, with an educational radha from [employer]. Review of Systems Const All systems reviewed & are unremarkable except as noted in HPI and below Reports no additional complaints Eyes Reports no additional complaints ENT Reports no additional complaints Card Reports no additional complaints Resp Reports no additional complaints GI Reports no additional complaints Reports no additional complaints Physical exam (Primary Care) Vital Signs: Last Vital Signs Pulse 62 01/16/23 10:28 BP 138/90 H 01/16/23 10:28 Pulse Ox 100 01/16/23 10:28 Oxygen Delivery Method Room Air 01/16/23 10:28 BMI result Body Mass Index 25.3 Tobacco/Smoking Status: Tobacco use Status Tobacco use date assessed 01/16/23 01/16/23 10:38 Patient Tobacco Use Status Former Tobacco user 01/16/23 10:29 e-Cigarette/Vaping Use Never Used 01/16/23 10:29 Thrive Assessment: Date of Thrive Assessment Date Thrive assessed 07/18/22 01/16/23 10:29 Const General: no acute distress HENMT General nose exam: Normal external nose present Eyes General: appearance normal, both eyes and all related structures Resp Effort & Inspection: normal respiratory effort Auscultation: clear to auscultation bilaterally Cardio Rhythm: regular rhythm Heart sounds: S1 normal heart sound present and S2 normal heart sound present GI Inspection: Yes normal to inspection Palpation (GI): Soft to palpation Percussion: Yes normal to percussion Auscultation: normal bowel sounds Assessment and Plan Assessment & Plan (1) Vitamin D deficiency: Code(s): E55.9 - Vitamin D deficiency, unspecified Plan: cont vit D (2) Hyperlipidemia: Code(s): E78.5 - Hyperlipidemia, unspecified Plan: cont statin (3) HTN (hypertension): Code(s): I10 - Essential (primary) hypertension Plan: cont meds (4) Atrial arrhythmia: Code(s): I49.8 - Other specified cardiac arrhythmias Plan: cont meds, f/u 6 mths Coding Level of Care Code Est Pt Level 4 (78314) Diagnoses Vitamin D deficiency E55.9 Hyperlipidemia E78.5 HTN (hypertension) I10 Atrial arrhythmia I49.8
[2023-01-16 10:28] VITALS: BP 120/80; PULSE 62; O2SAT 100; BMI 25.3
== END 2023-01-16 11:42 | disposition home or self-care (01) ==
PROVIDERS: Visit Provider Internal Medicine
DX: E55.9 Vitamin D deficiency, unspecified (principal); E78.5 Hyperlipidemia, unspecified; I10 Essential (primary) hypertension; I49.8 Other specified cardiac arrhythmias
CPT/HCPCS: 99214

== ENCOUNTER 2023-02-13 08:17 | Day surgery (SDC) | payer MEDICARE, SELFPAY ==
--- NOTE | 2023-02-12 09:52 | P.CONAN_ITS ---
Documented by User: Jessica Brice NP 02/12/23 09:59 HPI - Anesthesia Eval Consult details Narrative: 72yo F for Colonoscopy Follows cardiology yearly for atrial arrhythmia. Last office visit 05/2022. Cardizem, no OAC PMFSH Active Problems Active Problems: All Active Problems (Updated 07/21/20 @ 09:49 by Marce Garcia MD) Vitamin D deficiency (Acute) Positive colorectal cancer screening using Cologuard test (Acute) Hypothyroidism (Acute) Hyperlipidemia (Acute) HTN (hypertension) (Acute) Atrial arrhythmia (Acute) A-fib (Acute) Pneumonia (Acute) Dyspnea (Acute) CVA (cerebrovascular accident due to intracerebral hemorrhage) (Acute) Breast mass (Acute) Skin growth (Acute) Tobacco dependence (Acute) Postmenopausal (Acute) COPD (chronic obstructive pulmonary disease) (Acute) Annual physical exam (Acute) H/O: hysterectomy (Acute) Past Medical History Medical History A-fib Annual physical exam Breast mass COPD (chronic obstructive pulmonary disease) CVA (cerebrovascular accident due to intracerebral hemorrhage) HTN (hypertension) Hyperlipidemia Hypothyroidism Pneumonia Postmenopausal PVD (peripheral vascular disease) Skin growth Tobacco dependence Family History Family History (Updated 01/16/23 @ 10:37 by Page Paredes [facility]) Mother Heart problem Father Adenocarcinoma Substance use disorder Sister Myocardial infarct Surgical History Surgical History H/O: hysterectomy Social History Social History Household Members: Family Household Members Other:: Lives with sister, never , walks daily Housing: House Alcohol intake: never Patient Tobacco Use Status: Former Tobacco user Quit Date: quit 2 or more yrs ago e-Cigarette/Vaping Use: Never Used Use of substances other than those prescribed or required for medical reasons: No Are you DNR?: No Advance Directives: No Advance Directives Information Provided: Yes Patient : No (menopausal) service: No Current occupational status: retired Cognitive needs: No Hearing needs: No Vision needs: No Meds Allergies Allergy/AdvReac Type Severity Reaction Status Date / Time No Known Allergies Allergy Unknown Verified 01/16/23 10:36 [No Known Allergies*] Exam Exam Date and Time: February 12, 2023 0952 Pertinent Lab Results Pertinent Lab Results: Laboratory Tests 01/15/23 01/15/23 08:33 08:33 WBC 4.8 Hgb 12.9 Hct 40.6 Plt Count 266 Sodium 140 Potassium 3.8 Chloride 108 Carbon Dioxide 26 BUN 16 Creatinine 0.81 Narrative Narrative: EKG 05/2022 normal sinus rhythm with PACs ECHO 10/2021 Conclusions: - The left ventricular systolic function is normal.? The ? calculated ejection fraction is 64% by biplane method. ? - LV peak GLS -19.7%.? - Evidence suggests grade II (moderate) diastolic dysfunction. ? - The left atrium is severely dilated. ? - No obvious valvular pathology seen on this study.?? Assessment and Plan Assessment Anesthesia Assessment: Chart Reviewed Documented by User: Ish Daniels MD 02/13/23 09:55 [facility] Past Medical History Medical History A-fib Annual physical exam Breast mass COPD (chronic obstructive pulmonary disease) CVA (cerebrovascular accident due to intracerebral hemorrhage) HTN (hypertension) Hyperlipidemia Hypothyroidism Pneumonia Postmenopausal PVD (peripheral vascular disease) Skin growth Tobacco dependence Family History Family History (Updated 01/16/23 @ 10:37 by GIULIA Calzada) Mother Heart problem Father Adenocarcinoma Substance use disorder Sister Myocardial infarct Family history of problems with anesthesia: No Surgical History Surgical History H/O: hysterectomy History of Problems with Anesthesia: No Social History Social History Household Members: Family Household Members Other:: Lives with sister, never , walks daily Housing: House Alcohol intake: never Patient Tobacco Use Status: Former Tobacco user Quit Date: quit 2 or more yrs ago e-Cigarette/Vaping Use: Never Used Use of substances other than those prescribed or required for medical reasons: No Are you DNR?: No Advance Directives: No Advance Directives Information Provided: Yes Patient : No (menopausal) service: No Current occupational status: retired Cognitive needs: No Hearing needs: No Vision needs: No Meds Allergies Allergy/AdvReac Type Severity Reaction Status Date / Time No Known Allergies Allergy Unknown Verified 01/16/23 10:36 [No Known Allergies*] Exam Airway Mallampati Class: III TM Dist: >3cm Neck ROM: Limited Heart: rrr Lungs: ctaq Assessment and Plan Assessment Anesthesia Assessment: Anesthesia Plan Discussed and Smoking Cess. Discussed Final Anesthetic Review Family History of Problems with Anesthesia: No History of Problems with Anesthesia: No NPO: Yes ASA Class: III Final Preanesthetic Review: No Changes in Pt Med Stat, Meds/Allgs Chart Reviewed, Consent Obtained/Reviewed and Anes Risks/Benef Reviewed Patient Risk: Intermediate Procedure Risk: Low Anesthetic Plan Anesthetic Plan: MAC: and Agree w/ Assess. and Plan Disposition: Standard PACU
[2023-02-13 09:01] VITALS: BP 158/74; PULSE 65; RESP 16; TEMP 36.7; O2SAT 96; BMI 25.2
[2023-02-13] MEDS: Lactated Ringers 1,000 ML 100 ML IVCONT (09:22)
[2023-02-13] MEDS: Sodium Phosphate,Mono-Dibasic 133 ML ENEMA PR (10:09)
--- NOTE | 2023-02-13 12:11 | PM.OP ---
Brief Operative Note Date of Service: 02/13/23 Pre-op diagnosis: + Cologuard Post-op diagnosis: other (Colon polyps) Procedure: Colonoscopy to the cecum with hot snare polypectomies x 7, placement of Resolution clips x 5(at ascending colon, polyp at 25cm, and polyp at 15cm), and marking with ink at 25cm Surgeon: Butch Zamorano Anesthesia: MAC Was an Material Handling Equipment Stevedore used for this Procedure?: No Estimated blood loss (mL): 3.0 Pathology: other (A. Polyp at 40cm B. Polyp at 60cm C. Cecal polyp D. Ascending colon polyp E. Polyp at 25cm F. Polyp at 15cm G. Polyp at base of polyp at 15cm) Condition: stable Disposition: PACU
[2023-02-13 12:12] VITALS: BP 110/64; PULSE 56; RESP 16; TEMP 36.8; O2SAT 96
[2023-02-13 12:27] VITALS: BP 127/68; PULSE 59; RESP 14; O2SAT 95
[2023-02-13 12:42] VITALS: BP 132/76; PULSE 56; RESP 17; TEMP 36.8; O2SAT 95
--- NOTE | 2023-02-13 21:18 | OP_ITS ---
DATE OF SERVICE: 02/13/2023 SURGEON: Butch Zamorano MD INDICATIONS: The patient presents for evaluation of a positive Cologuard test. Full consent was obtained from her for this, including risks of bleeding and perforation. PREOPERATIVE DIAGNOSIS: Positive Cologuard test. POSTOPERATIVE DIAGNOSIS: PROCEDURE PERFORMED: Colonoscopy to the cecum with hot snare polypectomy x 7, placement of Resolution clips x 5, and marking with submucosal ink. ESTIMATED BLOOD LOSS: COMPLICATIONS: ANESTHESIA: Monitored anesthesia care. ASSISTANTS: SPECIMENS: POSTOPERATIVE DIAGNOSES: Positive Cologuard test. Colon polyps, diverticulosis, and internal hemorrhoids. DESCRIPTION OF PROCEDURE: The patient was placed in the left lateral decubitus position. The digital rectal exam revealed no abnormalities. The Olympus video pediatric colonoscope was entered into the rectum and advanced easily to the cecum. Once in the cecum, I did identify cecal pouch with appendiceal orifice and a normal-appearing ileocecal valve. There was transillumination of light deep in the right lower quadrant. In the base of the cecum, extending from beneath the appendiceal orifice to the area beneath the ileocecal valve was a flat, erythematous, lobulated polypoid lesion approximately 8 mm x 20 mm in size. This was removed in piecemeal fashion with pieces recovered by suction. Post-polypectomy, there did not appear to be any definitive residual polyp nor any bleeding. The remainder of the cecum appeared normal. The scope was then slowly withdrawn assessing all mucosal surfaces carefully. Preparation was excellent. In the proximal ascending colon was another flat long lesion that was lobulated. This measured approximately 20 mm x 8 mm. This was also removed in piecemeal fashion by hot snare polypectomy with pieces recovered by suction. Post-polypectomy, there did not appear to be any residual polyp tissue. One edge of the polypectomy site had some oozing and this was clipped with 2 Resolution clips with good deployment and good hemostasis. The area was observed and irrigated without any further bleeding noted. At 60 cm, was an approximately 8 mm grossly adenomatous polyp that was removed by hot snare polypectomy and recovered by suction. The polypectomy site appeared clean, without any sign of residual polyp nor bleeding. At 40 cm was an approximately 12 mm grossly adenomatous polyp, which was removed by hot snare polypectomy and recovered by suction. The polypectomy site appeared clean, without any sign of residual polyp nor bleeding. At 25 cm was a large, approximately 2.5 cm polyp on a fairly long stalk, which was removed by hot snare polypectomy at the base of the stalk. The polyp had some central area of depression and mild ulceration. The polyp was retrieved by taking it out on the tip of the scope. The scope was advanced back to the polypectomy site, which appeared clean, without any sign of residual polyp nor bleeding. Given its gross appearance and size, I did place a submucosal ink salome just proximal and just distal to the polypectomy site with the sclerotherapy needle. I did place 2 Resolution clips on the polypectomy site with good deployment and good hemostasis as well. At 15 cm was another large approximately 2 cm polyp on a long stalk. Interestingly, at the base of the stalk was an approximately 6 to 8 mm area of grossly adenomatous tissue as well. I initially snared the polyp toward the base of the stalk, but just above the area of adenomatous tissue. The polyp was retrieved by taking it out on the tip of the scope. The scope was advanced back to the polypectomy site. I then used the hot snare again to remove the residual adenomatous-appearing tissue at the base of the stalk. This was recovered by suction and placed in a separate container. I then placed a single clip on to that polypectomy site with good deployment and good hemostasis as well. In the transverse colon, descending colon, and rectum were other smaller polyps between 8 and 10 mm in diameter, which were not removed today given the length of the procedure already. There was a mild amount of sigmoid diverticulosis. In the rectum, scope was retroflexed visualizing internal hemorrhoids, but no other pathology. The scope was then straightened and withdrawn from the patient. She tolerated the procedure well and was returned to the recovery area in stable condition. IMPRESSION: 1. Multiple colon polyps, status post hot snare polypectomy, placement of resolution clips, and marking with submucosal ink at the polypectomy site, at 25 cm. 2. Diverticulosis. 3. Internal hemorrhoids. PLAN: The results of the pathology will be checked. She has been instructed not to use any aspirin and NSAIDs for at least 2 weeks. Depending upon the results of these pathology specimens, we would then determine when she would need another colonoscopy. If there is no evidence of any malignancy, I would then recommend a repeat colonoscopy within 6 months for re-evaluation of some of the polypectomy sites, as well as remove the other polyps that were not removed today. She was advised to call me if she has any signs of bleeding at home. This has all been discussed with the patient and her sister Ryan today. MD JAME Ludwig/KAVYA / [id number] MTDD
== END 2023-02-13 13:25 | disposition home or self-care (01) ==
PROVIDERS: PCP Internal Medicine; Visit Provider Internal Medicine
PROC: 0DJD8ZZ Inspection of Lower Intestinal Tract, Via Natural or Artificial Opening Endoscopic (ICD-10-PCS; CPT 45378; principal; 2023-02-13 09:30)
DX: R19.5 Other fecal abnormalities (principal); Z83.71 Family history of colonic polyps; D12.0 Benign neoplasm of cecum; D12.5 Benign neoplasm of sigmoid colon; D12.2 Benign neoplasm of ascending colon; D12.4 Benign neoplasm of descending colon; K57.30 Diverticulosis of large intestine without perforation or abscess without bleeding; K64.8 Other hemorrhoids; I48.91 Unspecified atrial fibrillation; I10 Essential (primary) hypertension; I69.311 Memory deficit following cerebral infarction; J44.9 Chronic obstructive pulmonary disease, unspecified; E03.9 Hypothyroidism, unspecified; E78.5 Hyperlipidemia, unspecified; Z79.51 Long term (current) use of inhaled steroids; Z79.899 Other long term (current) drug therapy; Z87.891 Personal history of nicotine dependence
CPT/HCPCS: 45385; 45381; 88305; J3010

== ENCOUNTER 2023-03-21 10:14 | Outpatient (AMB) | payer MEDICARE, SELFPAY ==
[2023-03-21 10:33] VITALS: BP 122/84; PULSE 75; O2SAT 97; BMI 25.5
--- NOTE | 2023-03-21 10:33 | MHC.PC.OV ---
Vital Signs 03/21/23 10:33 Height 5 ft 6 in Weight 158 lb BMI 25.5 BP 122/84 Blood Pressure Location Lt brachial Position Sitting Pulse 75 Pulse Source Pulse Oximeter Pulse Oximetry (%) 97 Oxygen Delivery Method Room Air Intake Visit Reasons: Bilateral cataract surgery-03/26-04/09 Intake Note: Pt is here today for pre op visit. Pt is having cataract surgery on 03/26/23 and 04/09/23. Allergies No Known Allergies [No Known Allergies*] Allergy (Unknown, Verified 03/21/23 10:39) Medication List - Last Reconciled 03/21/23 by Marce Garcia MD albuterol sulfate 90 mcg/actuation 2 puffs inhalation Q6H PRN atorvastatin 40 mg PO BEDTIME diltiazem HCl 120 mg PO DAILY doxazosin 2 mg PO BEDTIME levothyroxine 75 mcg PO DAILY umeclidinium-vilanterol 62.5-25 mcg/actuation (Anoro Ellipta) 1 inh inhalation DAILY Tobacco use date assessed: 03/21/23 HPI Bilateral cataract surgery-03/26-04/09 HPI Details Patient presents for the preop for cataract surgery she denies chest pain shortness of breath palpitations. Patient has been using Anoro but not regularly. She denies cough or wheezing. [facility] Medical History (Updated 03/21/23 @ 11:42 by Marce Garcia MD) A-fib CVA (cerebrovascular accident due to intracerebral hemorrhage) Breast mass Hypothyroidism Hyperlipidemia HTN (hypertension) Skin growth Tobacco dependence Postmenopausal Annual physical exam PVD (peripheral vascular disease) COPD (chronic obstructive pulmonary disease) Pneumonia Surgical History H/O: hysterectomy Family History (Updated 01/16/23 @ 10:37 by GIULIA Calzada) Mother Heart problem Father Adenocarcinoma Substance use disorder Sister Myocardial infarct Social History Household Members: Family Household Members Other:: Lives with sister, never , walks daily Housing: House Alcohol intake: never Patient Tobacco Use Status: Former Tobacco user Quit Date: quit 2 or more yrs ago e-Cigarette/Vaping Use: Never Used service: No Current occupational status: retired Cognitive needs: No Hearing needs: No Vision needs: No Questionnaire Thrive Questionnaire Date Thrive assessed: 07/18/22 TALA-7 AMB Questionnaire TALA-7 Date TALA - 7 assessed: 07/18/22 Source: Developed by Drs. Butch Damian, Sharon Betancur, Sam Payton and colleagues, with an educational radha from [employer]. Review of Systems Const All systems reviewed & are unremarkable except as noted in HPI and below Reports no additional complaints Eyes Reports no additional complaints ENT Reports no additional complaints Card Reports no additional complaints Resp Reports no additional complaints GI Reports no additional complaints Reports no additional complaints Physical exam (Primary Care) Vital Signs: Last Vital Signs Pulse 75 03/21/23 10:33 BP 122/84 03/21/23 10:33 Pulse Ox 97 03/21/23 10:33 Oxygen Delivery Method Room Air 03/21/23 10:33 BMI result Body Mass Index 25.5 Tobacco/Smoking Status: Tobacco use Status Tobacco use date assessed 03/21/23 03/21/23 10:40 Patient Tobacco Use Status Former Tobacco user 03/21/23 10:40 e-Cigarette/Vaping Use Never Used 03/21/23 10:40 Thrive Assessment: Date of Thrive Assessment Date Thrive assessed 07/18/22 03/21/23 10:40 Const General: no acute distress HENMT Ears: hearing grossly normal bilaterally Mouth: Normal oral and palatal mucosa present Eyes General: appearance normal, both eyes and all related structures Neck Neck: Yes supple Resp Effort & Inspection: normal respiratory effort Auscultation: diminished lung sounds Cardio Rhythm: regular rhythm Heart sounds: S1 normal heart sound present and S2 normal heart sound present GI Inspection: Yes normal to inspection Palpation (GI): Soft to palpation Percussion: Yes normal to percussion Auscultation: normal bowel sounds Assessment and Plan Assessment & Plan (1) Atrial arrhythmia: Code(s): I49.8 - Other specified cardiac arrhythmias Plan: EKG shows sinus bradycardia with of frequent APCs, no interval changes. Obtain 3 day Holter and echocardiogram. Continue current medications (2) HTN (hypertension): Code(s): I10 - Essential (primary) hypertension Plan: Continue current medications (3) Hyperlipidemia: Code(s): E78.5 - Hyperlipidemia, unspecified Plan: Continue statin (4) Cataract: Code(s): H26.9 - Unspecified cataract Plan: Patient is cleared for cataract surgery Orders: Orders CA echo transthoracic complete Today I48.91 - Unspecified atrial fibrillation, I49.8 - Other specified cardiac arrhythmias Comprehensive [place]. Panel Fast 4 Months E55.9 - Vitamin D deficiency, unspecified, E78.5 - Hyperlipidemia, unspecified, I10 - Essential (primary) hypertension, I49.8 - Other specified cardiac arrhythmias Lipid Panel 4 Months E55.9 - Vitamin D deficiency, unspecified, E78.5 - Hyperlipidemia, unspecified, I10 - Essential (primary) hypertension, I49.8 - Other specified cardiac arrhythmias Complete Blood Count Auto Diff 4 Months E55.9 - Vitamin D deficiency, unspecified, E78.5 - Hyperlipidemia, unspecified, I10 - Essential (primary) hypertension, I49.8 - Other specified cardiac arrhythmias ECG 3 day holter monitor Today I48.91 - Unspecified atrial fibrillation, I49.8 - Other specified cardiac arrhythmias TSH reflex Free T4 4 Months E55.9 - Vitamin D deficiency, unspecified, E78.5 - Hyperlipidemia, unspecified, I10 - Essential (primary) hypertension, I49.8 - Other specified cardiac arrhythmias Vitamin D 25-OH Total 4 Months E55.9 - Vitamin D deficiency, unspecified, E78.5 - Hyperlipidemia, unspecified, I10 - Essential (primary) hypertension, I49.8 - Other specified cardiac arrhythmias Coding Level of Care Code Est Pt Level 4 (90723) Diagnoses Atrial arrhythmia I49.8 HTN (hypertension) I10 Hyperlipidemia E78.5 Cataract H26.9
== END 2023-03-21 11:46 | disposition home or self-care (01) ==
PROVIDERS: PCP Internal Medicine; Visit Provider Internal Medicine
DX: I49.8 Other specified cardiac arrhythmias (principal); I10 Essential (primary) hypertension; E78.5 Hyperlipidemia, unspecified; H26.9 Unspecified cataract
CPT/HCPCS: 99214

== ENCOUNTER → 2023-04-19 13:57 | Outpatient (REF) | payer MEDICARE, SELFPAY ==
--- NOTE | 2023-04-19 14:00 | CA_ITS ---
Transthoracic Echocardiogram Patient (Last, First, Middle): Christina Castillo, Gender: Female Date of : 1950 Age: 72 Procedure Date: 04/19/2023 Procedure Type: Transthoracic Echocardiogram Location: OP Height: 167.64 cm Weight: 71.67 kg BSA: 1.81 m2 Heart Rate: 60 bpm BP: 124 / 70 mmHg Thread Weaver: GARFIELD/JUAN Referring MD: Marce Garcia MD Symptoms: I49.8 - Other specified cardiac arrhythmias Study Quality: Adequate ECG Rhythm: Sinus Arrhythmia Conclusions: - The left ventricular systolic function is normal. The calculated ejection fraction is 69% by biplane method. - There is moderate septal asymmetric hypertrophy. - Evidence suggests grade II (moderate) diastolic dysfunction. - No obvious valvular pathology seen on this study. - Mild pulmonary hypertension is present. Findings Left Ventricle Normal left ventricular cavity size. The left ventricular systolic function is normal. The calculated ejection fraction is 69% by biplane method. There is no evidence of regional wall motion abnormalities. Evidence suggests grade II (moderate) diastolic dysfunction. There is moderate septal asymmetric hypertrophy. Right Ventricle Normal right ventricular cavity size and systolic function. Atria Both atria are likely dilated. Aortic Valve There is a normal trileaflet aortic valve. There is mild calcification of the aortic valve. There is no aortic valve stenosis. There is no aortic valve regurgitation. Mitral Valve There is mild mitral annular calcification. There is no mitral valve regurgitation. There is no mitral valve stenosis. Pulmonic Valve The pulmonic valve is likely normal. Tricuspid Valve There is mild tricuspid valve regurgitation. Mild pulmonary hypertension is present. Great Vessels The asc aorta is normal in size. Venous The inferior vena cava is mildly dilated and collapses less than 50% with inspiration. Pericardium/Pleural There is no evidence of pericardial effusion. Prior Study Comparison No significant change compared to prior study dated: 11/21/2021. Recommendations, Care & Conclusions No obvious valvular pathology seen on this study. Measurements 2D Linear Measurements IVSd: 1.46 0.6-0.9/0.6-1.0 cm LVIDd: 4.35 3.9-5.3/4.2-5.9 cm LVIDd Index: 2.40 2.4-3.2/2.2-3.1 cm/m2 LVIDs: 2.43 2.0-3.6 cm LVPWd: 0.95 0.7-1.1 cm LA Diam: 4.40 2.7-3.8/3.0-4.0 cm LAIDs Index: 2.43 1.5-2.3 cm/m2 LV Mass: 236.09 67-162/88-224 g LV Mass Index: 130.44 43-95/49-115 g/m2 LVOT Diam: 1.90 3.0+(-)1.3 cm 2D Systolic Function EF 4C: 75.00 >55% EF 2C: 63.90 >55% EF BiP: 68.60 >55% Mitral Valve MV Pk E: 0.96 MV PK A: 0.98 MV Decel Time: 142.00 E/A: 1.00 E'Lateral: 7.21 E'Medial: 4.46 E/E' Med: 21.40 E/E' Lat: 13.20 PHT: 42.00 MVA PHT: 5.24 Decel Hodgeman: 6.74 Aortic Valve AoV Pk Joo: 1.52 AoV Pk Grad: 9.00 MARY LOU: 2.91 LVOT LVOT Pk Joo: 1.56 LVOT Mn Joo: 0.96 LVOT VTI: 0.30 LVOT Pk Grad: 10.00 LVOT Mn Grad: 4.00 LVOT Diam: 1.90 LVOT Area: 2.84 Diastolic Function MV Pk E: 0.96 MV Pk A: 0.98 E/A: 1.00 E'Medial: 4.46 E/E' Med: 21.40 E' Laterial: 7.21 E/E' Lat: 13.20 Right Ventricle TAPSE (mm): 31.30 TVS' Joo: 25.80 Tricuspid Valve TR Pk Joo: 2.72 TR Pk Grad: 30.00 RA Press: 15.00 RVSP: 45.00 Great Vessels Aorta Sinus of Valsalva: 3.10 2.0-3.5 cm Ao Asc: 3.80 2.1-3.4 cm Pulmonary Veins Pulm Vein S/D 1.20 Pulmonary Valve PV Pk Joo: 1.07 Peak PV Grad: 5.00 Updated in Other Vendor System with Status of Final Oscar Roper MD electronically signed on 04/20/2023 1:21:34 PM with status of Final
--- NOTE | 2023-04-19 14:00 | HM_ITS ---
Conclusion: 1. Patient was monitored for total period of 1 day and 18 hours 2. Baseline was normal sinus rhythm with average heart of 60 beats per minute 3. No significant pauses noted but frequent sinus bradycardia noted with 38% of time heart rate below 60 beats per minute 4. Frequent PACs noted mostly isolated with total burden of about 20% with 12 short runs of SVT, longest lasting 8 beats and the fastest 141 beats per minute 5. No patient reported events MTDD
== END ==
LOC: HO.CARD 13:57
PROVIDERS: PCP Internal Medicine; Visit Provider Internal Medicine
DX: I48.91 Unspecified atrial fibrillation (principal); I49.8 Other specified cardiac arrhythmias
CPT/HCPCS: 93242; 93306

== ENCOUNTER → 2023-04-19 14:00 | Outpatient (BNV) | payer MEDICARE, SELFPAY | PROVIDERS: PCP Internal Medicine; Visit Provider Internal Medicine | DX: I36.1 Nonrheumatic tricuspid (valve) insufficiency (principal); I34.81 Nonrheumatic mitral (valve) annulus calcification | CPT/HCPCS: 93244; 93306 ==

== ENCOUNTER 2023-06-13 11:07 | Outpatient (AMB) | payer MEDICARE, SELFPAY ==
[2023-06-13 11:10] VITALS: BP 90/60; PULSE 74; BMI 26.5
--- NOTE | 2023-06-13 11:10 | A.OFFVIS_ITS ---
Intake Vital Signs 06/13/23 11:10 Height 5 ft 6 in Weight 164 lb 7.437 oz BMI 26.5 BP 90/60 Blood Pressure Location Rt brachial Position Sitting Pulse 74 Pulse Source Pulse Oximeter Intake Visit Reasons: 1 yr f/up Intake Note: 1 yr f/up pt its feeling good Creative Resource Manager Required: No Accompanied by: Self / Same As Patient Allergies No Known Allergies [No Known Allergies*] Allergy (Unknown, Verified 03/21/23 10:39) Medication List - Last Reconciled 06/13/23 by Chance Antonio MD albuterol sulfate 90 mcg/actuation 2 puffs inhalation Q6H PRN atorvastatin 40 mg PO BEDTIME diltiazem HCl 120 mg PO DAILY doxazosin 2 mg PO BEDTIME levothyroxine 75 mcg PO DAILY umeclidinium-vilanterol 62.5-25 mcg/actuation (Anoro Ellipta) 1 inh inhalation DAILY HPI HPI Comments History of Present Illness Details Mo comes for follow-up. She denies any new cardiac symptoms. She does manage to exercise and walk without any symptoms unless she is walking cold weather when she would get low short of breath. Denies any exertional chest pain. Denies any skipped heartbeats. Denies any prolonged irregular heartbeat or palpitations. No lightheadedness, syncope. She did have a Holter monitor in March which showed frequent PACs with total burden of 20% with no evidence of atrial fibrillation. Echocardiogram showed borderline biatrial enlargement with normal LV ejection fraction of 69% with grade 2 diastolic dysfunction. Denies any heart failure symptoms. [facility] Medical History A-fib CVA (cerebrovascular accident due to intracerebral hemorrhage) Breast mass Hypothyroidism Hyperlipidemia HTN (hypertension) Skin growth Tobacco dependence Postmenopausal Annual physical exam PVD (peripheral vascular disease) COPD (chronic obstructive pulmonary disease) Pneumonia Surgical History H/O: hysterectomy Family History Mother Heart problem Father Adenocarcinoma Substance use disorder Sister Myocardial infarct Social History Household Members: Family Household Members Other:: Lives with sister, never , walks daily Housing: House Alcohol intake: never Patient Tobacco Use Status: Former Tobacco user Quit Date: quit 2 or more yrs ago e-Cigarette/Vaping Use: Never Used service: No Current occupational status: retired Cognitive needs: No Hearing needs: No Vision needs: No Review of Systems Const Reports chills, Reports fatigue, Reports fever(s), Reports frequent falls, Reports weakness, Reports weight gain and Reports weight loss ENT Reports dizziness Card Reports chest pain, Reports leg edema, Reports lightheadedness, Reports palpitations, Reports dyspnea and Reports dyspnea on exertion Resp Reports cough, Reports dyspnea and Reports dyspnea on exertion GI Reports hematochezia Musc Reports abnormal gait, Reports muscle weakness, Reports numbness, Reports radiating pain into limb and Reports tingling Neuro Reports abnormal gait, Reports dizziness, Reports frequent falls, Reports numbn ess, Reports tingling and Reports weakness Endo Reports fatigue and Reports palpitations Physical Exam Vital Signs: Last Vital Signs Pulse 74 06/13/23 11:10 BP 90/60 06/13/23 11:10 BMI result Body Mass Index 26.5 Const General: cooperative, comfortable, no acute distress, alert and awake Nutritional Appearance: average body habitus Orientation/consciousness: patient oriented x3 Limitations: no limitations HEENT Head: Yes normocephalic and Yes atraumatic Neck Neck: Yes trachea midline, Yes supple and Yes no JVD Chest Chest palpation & inspection: normal inspection of the chest Resp Effort & Inspection: normal respiratory effort Auscultation: clear to auscultation bilaterally and diminished lung sounds Cardio Jugular venous distension: no JVD Palpation: normal PMI Rate: regular rate Rhythm: abnormal rhythm with ectopic beats Heart sounds: S1 normal heart sound present, S2 normal heart sound present, no click, no gallops and no murmurs GI Auscultation: normal bowel sounds Skin General skin exam: no rashes or lesions noted Neuro General: patient oriented x3 and no focal motor deficits Extrem General: Yes no clubbing, cyanosis or edema Office Procedures EKG Details: EKG shows normal sinus rhythm with low-voltage with left axis deviation with PACs with nonspecific ST T wave changes [id number], Complete Assessment & Plan Assessment & Plan (1) Atrial arrhythmia: Code(s): I49.8 - Other specified cardiac arrhythmias Plan: Patient with frequent PACs and short runs of SVT/atrial tachycardia with no recurrent clinical atrial fibrillation including with Holter monitor. She remains at high risk for recurrent atrial fibrillation. Continue to monitor clinically by symptoms. Can continue to pursue Holter monitor on annual basis. This would change in management if she has recurrent atrial fibrillation and may require oral anticoagulation therapy and/or Watchman device given her prior CVA. Continue to avoid stimulants. Continue Cardizem therapy for now. Advised to call me with any new symptoms. Would avoid any antiarrhythmic drug therapy given her minimal symptoms. (2) Diastolic dysfunction: Code(s): I51.89 - Other ill-defined heart diseases Plan: Patient has diastolic dysfunction related to longstanding hypertension and aging . Clinically has exertional shortness of breath which could also be related to underlying COPD. No signs or symptoms of fluid overload or congestive heart failure. She has no clinical symptoms of congestive heart failure. These were discussed. Encouraged to continue to participate in regular physical activity. Continue aggressive control blood pressure which appears to be well optimized. Signs and symptoms of heart failure were discussed advised to call me with any new symptoms. Will follow up in the clinic in 1 year's time, sooner p.r.n.. Thank you for allowing me to partake in his care Coding Level of Care Code Est Pt Level 4 (87065) Diagnoses Atrial arrhythmia I49.8 Diastolic dysfunction I51.89 CPT Codes EKG - CPT: 29086-[id number], Complete ([id number])
== END 2023-06-13 11:37 | disposition home or self-care (01) ==
PROVIDERS: Visit Provider Internal Medicine Cardiovascular Disease
DX: I49.8 Other specified cardiac arrhythmias (principal); I51.89 Other ill-defined heart diseases
CPT/HCPCS: 93010; 99214

== ENCOUNTER → 2023-06-13 11:07 | Outpatient (BNVA) | payer MEDICARE, SELFPAY | PROVIDERS: Visit Provider Internal Medicine Cardiovascular Disease | DX: I49.8 Other specified cardiac arrhythmias (principal); I51.89 Other ill-defined heart diseases | CPT/HCPCS: 93005; 99212 ==

== ENCOUNTER 2023-07-10 10:14 | Outpatient (AMB) | payer MEDICARE, SELFPAY ==
--- NOTE | 2023-07-10 11:24 | AM.OFFWIN_ITS ---
Intake Vital Signs 07/10/23 11:31 Height 5 ft 4 in Weight 157 lb 2 oz BMI 27.0 BP 114/78 Blood Pressure Location Lt brachial Position Sitting Pulse 93 Pulse Source Pulse Oximeter Temp 97.0 F Temp Source Temporal Artery Scan Pulse Oximetry (%) 95 Oxygen Delivery Method Room Air Intake Visit Reasons: EP, cough ([phone]) Patient Tobacco Use Status: Former Tobacco user Quit Date: quit 2 or more yrs ago Allergies No Known Allergies [No Known Allergies*] Allergy (Unknown, Verified 07/10/23 11:25) HPI HPI Comments History of Present Illness Details Tricia alonso a 72yo F who presents to office with sister for cough She has chronic COPD with O2 sat of 95 at baseline She said cough since xmas that wont resolve Some SOB due to the cough No at home breathing tx No CP, fever or chills Minimal congestion without sinus pressure, ear pain or ST No relief with OTC medicine PFSH Medical History A-fib CVA (cerebrovascular accident due to intracerebral hemorrhage) Breast mass Hypothyroidism Hyperlipidemia HTN (hypertension) Skin growth Tobacco dependence Postmenopausal Annual physical exam PVD (peripheral vascular disease) COPD (chronic obstructive pulmonary disease) Pneumonia Surgical History H/O: hysterectomy Family History Mother Heart problem Father Adenocarcinoma Substance use disorder Sister Myocardial infarct Social History Household Members: Family Household Members Other:: Lives with sister, never , walks daily Housing: House Alcohol intake: never Patient Tobacco Use Status: Former Tobacco user Quit Date: quit 2 or more yrs ago e-Cigarette/Vaping Use: Never Used service: No Current occupational status: retired Cognitive needs: No Hearing needs: No Vision needs: No Review of Systems Const Denies chills and Denies fever(s) Eyes Denies blurry vision ENT Denies otalgia, Denies facial pain, Reports nasal discharge and Denies sore throat Card Denies chest pain and Reports dyspnea Resp Denies change in phlegm color, Denies chest congestion, Reports cough, Reports dyspnea and Reports other (cough feels like mucus in lungs but cant cough up) Physical Exam Vital Signs: Last Vital Signs Temp 97.0 F 07/10/23 11:31 Pulse 93 07/10/23 11:31 BP 114/78 07/10/23 11:31 Pulse Ox 95 07/10/23 11:31 Oxygen Delivery Method Room Air 07/10/23 11:31 BMI result Body Mass Index 27.0 General: Non-toxic, NAD. Speaking full sentences. Skin: Warm dry throughout Eye: EOMI HENT: Airway patent. Uvula midline. No pharyngeal erythema or edema. No GRINDER HARDBOARD. Bilateral canals clear. TM non-erythematous, non-bulging. No TM perforation or hemotympanum noted. Respiratory: + slight decrease R middle with crackles at R base. L lung CTA Cardiac: RRR. No murmur MSK: Full ROM extremities. Neurology: A/O. No aphasia or facial droop. Gait without abnormality Psych: Good mood and affect Assessment & Plan Assessment & Plan (1) Community acquired bacterial pneumonia: Code(s): J15.9 - Unspecified bacterial pneumonia Plan: Patient seen and evaluated. O2 sats are stable and there is no tachypnea on exam. Pt NAD Clinical exam reveals CAP diagnosis Offered xray but will hold She has f/u next week and we discussed s/s that warrant xray imaging and or ED evaluation Doxy with food. Tessalon for cough Patient gave verbal understanding and had no additional questions or concerns at time of discharge All questions answered Medications: New doxycycline hyclate 100 mg PO BID 14 caps 0RF benzonatate 100 mg PO BID-TID PRN 14 caps 0RF cough Coding Level of Care Code Est Pt Level 3 (95434) Diagnoses Community acquired bacterial pneumonia J15.9
[2023-07-10 11:31] VITALS: BP 114/78; PULSE 93; TEMP 36.1; O2SAT 95; BMI 27.0
== END 2023-07-10 11:56 | disposition home or self-care (01) ==
PROVIDERS: PCP Internal Medicine; Visit Provider Physician Assistant
DX: J15.9 Unspecified bacterial pneumonia (principal)
CPT/HCPCS: 99213

== ENCOUNTER 2023-07-18 10:01 | Outpatient (REF) | payer MEDICARE, SELFPAY ==
[2023-07-18 13:16] LABS: MANUAL DIFF FLAG NO
[2023-07-18 13:30] LABS: Basophils Absolute Auto 0.2 X10*3/uL (0.0-0.2); Basophils Percent Auto 2.5 % (0-2); Eosinophils Absolute Auto 0.1 X10*3/uL (0.0-0.4); Eosinophils Percent Auto 1.6 % (0-4); Hematocrit 40.9 % (37.0-47.0); Hemoglobin 13.3 g/dl (12.0-16.0); Imm Gran Abs Auto 0.02 X10*3/uL (0.00-0.03); Imm Gran Pct Auto 0.3 % (0.0-0.4); Lymphocytes Absolute Auto 1.5 X10*3/uL (1.2-4.9); Lymphocytes Percent Auto 24.8 % (20-40); Mean Corpuscular HGB Conc 32.5 g/dl (31.0-35.0); Mean Corpuscular Volume 92.1 fL (80.0-98.0); Mean Platelet Volume 11.4 fL (9.4-12.3); Monocytes Absolute Auto 0.6 X10*3/uL (0.1-1.2); Monocytes Percent Auto 9.5 % (2-11); Neutrophils Absolute Auto 3.7 x10*3/uL (2.0-8.3); Neutrophils Percent Auto 61.3 % (45-73); Platelet Count 345 X10*3/uL (160-400); Red Blood Count 4.44 X10*6/uL (4.20-5.50); Red Cell Distribution Width 12.9 % (11.0-16.0); White Blood Count 6.1 X10*3/uL (4.8-10.8)
[2023-07-18 14:18] LABS: Alanine Aminotransferase 20 U/L (0-31); Albumin Level 3.8 g/dL (3.5-5.0); Alkaline Phosphatase 100 U/L (39-117); Anion Gap 10 (12-20); Aspartate Amino Transferase 22 U/L (5-31); Bilirubin Total 0.6 mg/dL (0.0-1.0); Blood Urea Nitrogen 18 mg/dL (9-16); Calcium 9.3 mg/dL (8.4-10.2); Carbon Dioxide 27 mmol/L (22-29); Chloride 107 mmol/L (96-108); Cholesterol 188 mg/dL (<200); Estimated Glomerular Filt Rate > 60; Glucose Fasting 101 mg/dL (60-99); HDL Cholesterol 58 mg/dL (>40); LDL Cholesterol Calculated 113 mg/dL (<100); Sodium 140 mmol/L (135-145); Total Protein 6.6 g/dL (6.5-8.0); Triglycerides 86 mg/dL (<150)
[2023-07-18 14:22] LABS: TSH reflex Free T4 0.91 uIU/mL (0.32-4.0); Vitamin D 25-OH Total 15.1 ng/mL (>30)
== END 2023-07-18 10:02 | disposition home or self-care (01) ==
LOC: HO.HMGCLDS 10:01
PROVIDERS: PCP Internal Medicine; Visit Provider Internal Medicine
DX: E55.9 Vitamin D deficiency, unspecified (principal); E78.5 Hyperlipidemia, unspecified; I10 Essential (primary) hypertension; I49.8 Other specified cardiac arrhythmias
CPT/HCPCS: 36415; 80053; 80061; 82306; 84443; 85025

== ENCOUNTER 2023-07-19 10:28 | Outpatient (AMB) | payer MEDICARE, SELFPAY ==
--- NOTE | 2023-07-19 10:32 | A.OFFVIS_ITS ---
Intake Vital Signs 07/19/23 10:33 Height 5 ft 4 in Weight 157 lb BMI 26.9 BP 118/76 Blood Pressure Location Lt brachial Position Sitting Pulse 73 Pulse Source Pulse Oximeter Pulse Oximetry (%) 97 Oxygen Delivery Method Room Air Intake Visit Reasons: MICHAEL G0439 12/29/2022 Allergies No Known Allergies [No Known Allergies*] Allergy (Unknown, Verified 07/19/23 10: 37) HPI [facility] G0439 12/29/2022 HPI Details Initiated the conversation about Advanced Directives. Advanced Directives help? patients prepare for current and future decisions about their medical treatment? and place of care. Discussed with patient that it is a proc ess where a patients? current condition and prognosis are reviewed, their wishes for information? regarding their illness are elicited, and likely medical dilemmas are presented? and options discussed. The form can be amended as needed, reviewed yearly and? make changes as needed IPPE/AWV ? year old presents? for her ? Annual? Wellness Visit, initial visit.? Medical / Social History Reviewed? Past Medical History ?Yes? . ? [place]? of Care / Care Team list updated ?Yes . ? Surgical/Hospitalization? History ?Yes . ? Current Medications? (including OTC and supplements) ?Yes . ? Family History ?Yes? . ? Tobacco? Control form ?Yes . ? AUDIT-C (Alcohol use) form? ?Yes . ? Illicit drug use in Social? History ?Yes . ? Current diagnosis of? depression? ?No ? Appropriate PHQ2/PHQ9? completed ?Yes . ? Data entered by ?Medical? Dynamic Balancer Set Up Worker and reviewed by provider ? Fall Risk ? Fall? History? Have you had any falls with? injury in the past year? ?No . ? Have you had two or more? falls in the past year? ?No . ? Fall Risk Assessment: ?No? falls in the past year . ? HRA filled out by? the patient, reviewed by Provider and scanned. ? IPPE/AWV ? Balance? [place]? ?Yes . ? Tandem? walk ?Yes . ? Walk and? Turn ?Yes . ? Rise from? sit to stand ?Yes . ?Vision? Corrective? lens ?Yes ? Vision? screen ? Up-to-date, has an appointment [] for vision? screening and glaucoma screening ?Hearing? Whisper? test ?pass .? Initiated the conversation about Advanced Directives. Advanced Directives help? patients prepare for current and future decisions about their medical treatment? and place of care. Discussed with patient that it is a process where a patients? current condition and prognosis are reviewed, their wishes for information? regarding their illness are elicited, and likely medical dilemmas are presented? and options discussed. The form can be amended as needed, reviewed yearly and? make changes as needed Written? Plan?Completed. See Patient? Documents. FORMERLY [facility], [facility] Medical History (Updated 07/19/23 @ 11:39 by Marce Garcia MD) A-fib CVA (cerebrovascular accident due to intracerebral hemorrhage) Breast mass Hypothyroidism Hyperlipidemia HTN (hypertension) Skin growth Tobacco dependence Postmenopausal Annual physical exam PVD (peripheral vascular disease) COPD (chronic obstructive pulmonary disease) Pneumonia Surgical History H/O: hysterectomy Family History Mother Heart problem Father Adenocarcinoma Substance use disorder Sister Myocardial infarct Social History Household Members: Family Household Members Other:: Lives with sister, never , walks daily Housing: House Alcohol intake: never Patient Tobacco Use Status: Former Tobacco user Quit Date: quit 2 or more yrs ago e-Cigarette/Vaping Use: Never Used service: No Current occupational status: retired Cognitive needs: No Hearing needs: No Vision needs: No Questionnaire Medicare Wellness Checkup [age] What gender do you identify with?: female During the past 4 weeks, how much have you been bothered by emotional problems such as feeling anxious, depressed, irritable, sad or downhearted, and blue?: not at all During the past 4 weeks, has your physical & emotional health limited your social activities with family, friends, neighbors, or groups?: not at all During the past 4 weeks, how much bodily pain have you generally had?: no pain During the past 4 weeks, was someone available to help you if you needed & wanted help?: no, not at all During the past 4 weeks, what was the hardest physical activity you could do for at least 2 minutes?: moderate Can you get to places out of walking distance without help? (For eg., can you travel alone on buses, taxis or drive your car?): Yes Can you go shopping for groceries or clothes without someone's help?: No Can you prepare your own meals?: Yes Can you do your housework without help?: Yes Because of any health problems, do you need the help of another person with your personal care needs such as eating, bathing, dressing or getting around the rahel se?: No Can you handle your own money without help?: Yes During the past 4 weeks, how would you rate your health in general?: very good During the past 4 weeks how have things been going for you?: pretty well Are you having difficulties driving your car?: not applicable, I don't use a car Do you always fasten your seat belt when you are in a car?: yes, usually During past 4 weeks, have you been bothered by the following: never: Falling or dizzy when standing up, Sexual problems?, Trouble eating well?, Teeth or denture problems?, Problems using the telephone? and Tiredness or fatigue? Have you fallen 2 or more times in the past year?: No Are you afraid of falling?: No Are you a smoker?: no During the past 4 weeks, how many drinks of wine, beer, or other alcoholic beverages did you have?: no alcohol at all Do you exercise for about 20 minutes 3 or more times a week?: yes, most of the time Have you been given information to help with the following?: yes: Hazards in your house that might hurt you? and yes: Keeping track of your medications? How often do you have trouble taking medicines the way you have been told to take them?: I always take medicine as prescribed How confident are you that you can control & manage most of your health problems?: very confident What is your race?: White Activity of Daily Living Bathing - sponge bath, tub bath or shower: receives no assistance (gets in/out by self, if usual bathing means Dressing - getting clothes from closets & drawers, including inner/outer garments & fasteners.: gets clothes & gets completely dressed without help Toileting - going to the 'toilet room' for urine/bowel elimination & cleaning self/arranging clothes: goes to toilet room, cleans self, arranges clothes without help Transfer: moves in & out of bed and chair without help (may use support object) Continence: controls urination/bowel movements completely by self Feeding: feeds self without help Total Score: 0 Information obtained from: patient Using telephone: independent Traveling: independent Shopping: needs assistance Preparing meals: independent Housework: independent Taking medicine: independent Managing money: independent PHQ-9 Over the last 2 weeks, how often have you been bothered by any of the following problems? 1. Little interest or pleasure in doing things: not at all 2. Feeling down, depressed, or hopeless: not at all 3. Trouble falling or staying asleep, or sleeping too much: not at all 4. Feeling tired or having little energy: not at all 5. Poor appetite or overeating: not at all 6. Feeling bad about yourself - or that you are a failure or have let yourself or your family down: not at all 7. Trouble concentrating on things, such as reading the newspaper or watching television: not at all 8. Moving or speaking so slowly that other people could have noticed. Or the opposite - being so fidgety or restless that you have been moving around a lot more than usual: not at all 9. Thoughts that you would be better off or of hurting yourself in some way: not at all Total score: 0 Depression Screening Interpretation: Negative Depression Screening Done: Yes Source: Developed by Drs. Butch Damian, Sharon Betancur, Sam Payton and colleagues, with an educational radha from [employer]. Review of Systems Const All systems reviewed & are unremarkable except as noted in HPI and below Reports no additional complaints Eyes Reports no additional complaints ENT Reports no additional complaints Card Reports no additional complaints Resp Reports no additional complaints GI Reports no additional complaints Reports no additional complaints Physical Exam Vital Signs: Last Vital Signs Pulse 73 07/19/23 10:33 BP 118/76 07/19/23 10:33 Pulse Ox 97 07/19/23 10:33 Oxygen Delivery Method Room Air 07/19/23 10:33 BMI result Body Mass Index 26.9 Neck Neck: Yes no lymphadenopathy and Yes supple Resp Effort & Inspection: normal respiratory effort Auscultation: clear to auscultation bilaterally Cardio Rhythm: regular rhythm Heart sounds: S1 normal heart sound present and S2 normal heart sound present GI Inspection: Yes normal to inspection Palpation (GI): Soft to palpation Percussion: Yes normal to percussion Auscultation: normal bowel sounds Extrem General: Yes no clubbing, cyanosis or edema Assessment & Plan Assessment & Plan (1) HTN (hypertension): Code(s): I10 - Essential (primary) hypertension Plan: Continue current medications (2) A-fib: Comment: episode 11/19 during hospitalization for COPD Code(s): I48.91 - Unspecified atrial fibrillation (3) Atrial arrhythmia: Comment: f/u Dr. Antonio, Holter frequent PAC's, no A fib, history of hemorrhagic stroke, not on anticoagulation Code(s): I49.8 - Other specified cardiac arrhythmias Plan: Follow-up with cardiology for annual Holter and echo, continue Cardizem (4) Hyperlipidemia: Code(s): E78.5 - Hyperlipidemia, unspecified Plan: Continue statin (5) COPD (chronic obstructive pulmonary disease): Code(s): J44.9 - Chronic obstructive pulmonary disease, unspecified Plan: Continue Anoro (6) Annual physical exam: Code(s): Z00.00 - Encounter for general adult medical examination without abnormal findings Plan: Well-balanced diet regular physical activity discussed with the patient. Mammogram will be scheduled patient will have a colonoscopy (7) Osteoporosis: Comment: DEXA 2020 SD-3.1 (AP spine) Code(s): M81.0 - Age-related osteoporosis without current pathological fracture Plan: Patient will start vitamin D3 2000 units a day was encouraged to increase physical activity including weight-bearing exercises Fosamax 70 mg weekly will be tried. Patient's sister is concerned the patient may not be compliant with restrictions while taking Fosamax. If patient is not able to take Fosamax Reclast infusion will be scheduled. Patient will need repeat DEXA in 2 years after treatment Plan as above Orders: Orders MM screening mammo BI Today Z12.31 - Encounter for screening mammogram for malignant neoplasm of breast Medications: New cholecalciferol (vitamin D3) 50 mcg PO DAILY 90 caps 1RF alendronate (Fosamax) 70 mg PO QWEEK 14 tabs 3RF Quality Reporting (2019) Depression/Bipolar (159/160/161/177) PHQ-9: Total score: 0 Coding Level of Care Code Medicare Subsequent (G0439) Diagnoses HTN (hypertension) I10 A-fib I48.91 Atrial arrhythmia I49.8 Hyperlipidemia E78.5 COPD (chronic obstructive pulmonary disease) J44.9 Annual physical exam Z00.00 Osteoporosis M81.0 CPT Codes Advance Care Planning - Time spent: 1-15 minutes, not on file ([id number]) Advance Care Planning Advance Care Planning discussion: Exists, not on file Forms completed: Health Care Proxy Time spent: 1-15 minutes, not on file
[2023-07-19 10:33] VITALS: BP 118/76; PULSE 73; O2SAT 97; BMI 26.9
== END 2023-07-19 11:41 | disposition home or self-care (01) ==
PROVIDERS: PCP Internal Medicine; Visit Provider Internal Medicine
DX: Z00.00 Encounter for general adult medical examination without abnormal findings (principal); I48.91 Unspecified atrial fibrillation; J44.9 Chronic obstructive pulmonary disease, unspecified; I10 Essential (primary) hypertension; I49.8 Other specified cardiac arrhythmias; E78.5 Hyperlipidemia, unspecified; M81.0 Age-related osteoporosis without current pathological fracture
CPT/HCPCS: 1124F; G0439

== ENCOUNTER 2023-08-21 14:29 | Outpatient (REF) | payer MEDICARE, SELFPAY ==
--- NOTE | ~2023-08-21 | MM_ITS ---
EXAMINATION: MM SCREENING DIGITAL BREAST TOMOSYNTHESIS, BILATERAL CLINICAL INFORMATION: Screening. Asymptomatic. COMPARISON: Mammography: This study is compared with prior exams dating back to 2019. TECHNIQUE: Digital breast tomosynthesis is performed in both the craniocaudal and mediolateral oblique views along with computer-aided detection (CAD). Synthesized 2D images are generated from the tomosynthesis. FINDINGS: There are scattered areas of fibroglandular density (ACR BI-RADS breast composition Category b). There are no significant masses, abnormal calcifications, or other abnormalities. There is a tissue marker in the upper outer quadrant of the right breast from prior benign percutaneous biopsy. MM/MM tomosynthesis screening BI IMPRESSION: No mammographic evidence of malignancy. ASSESSMENT: BI-RADS BI-RADS 2 - Benign Findings RECOMMENDATION: Routine annual mammography screening. 1 year F/U This examination should not preclude the clinical evaluation of a suspicious palpable abnormality. This patient's information was entered into a reminder system with a target due date for their next mammogram.
== END 2023-08-21 14:30 | disposition home or self-care (01) ==
LOC: HO.MAMMO 14:29
PROVIDERS: PCP Internal Medicine; Visit Provider Internal Medicine
DX: Z12.31 Encounter for screening mammogram for malignant neoplasm of breast (principal)
CPT/HCPCS: 77063; 77067

== ENCOUNTER → 2023-08-21 15:00 | Outpatient (BNV) | payer MEDICARE, SELFPAY | PROVIDERS: PCP Internal Medicine; Visit Provider Radiology Diagnostic Radiology | DX: Z12.31 Encounter for screening mammogram for malignant neoplasm of breast (principal) | CPT/HCPCS: 77063; 77067 ==

== ENCOUNTER 2023-11-06 09:22 | Day surgery (SDC) | payer MEDICARE, SELFPAY ==
[2023-11-04 16:42] VITALS: BMI 25.3
--- NOTE | 2023-11-05 09:12 | HO.ANESPROP2 ---
Documented by User: Jessica Brice NP 11/05/23 09:14 HPI - Anesthesia Eval Consult details Narrative: 73yo F for Colonoscopy Follows [facility] [place] cardiology yearly for atrial arrhythmia/hx afib. Stable at 05/2023 office visit [facility] Active Problems Active Problems: All Active Problems Osteoporosis (Acute) Diastolic dysfunction (Acute) Cataract (Acute) Vitamin D deficiency (Acute) Positive colorectal cancer screening using Cologuard test (Acute) Hypothyroidism (Acute) Hyperlipidemia (Acute) HTN (hypertension) (Acute) Atrial arrhythmia (Acute) A-fib (Acute) Pneumonia (Acute) Dyspnea (Acute) CVA (cerebrovascular accident due to intracerebral hemorrhage) (Acute) Breast mass (Acute) Skin growth (Acute) Tobacco dependence (Acute) Postmenopausal (Acute) COPD (chronic obstructive pulmonary disease) (Acute) Annual physical exam (Acute) H/O: hysterectomy (Acute) Past Medical History Medical History A-fib CVA (cerebrovascular accident due to intracerebral hemorrhage) Breast mass Hypothyroidism Hyperlipidemia HTN (hypertension) Skin growth Tobacco dependence Postmenopausal Annual physical exam PVD (peripheral vascular disease) COPD (chronic obstructive pulmonary disease) Pneumonia Family History Family History Mother Heart problem Father Adenocarcinoma Substance use disorder Sister Myocardial infarct Family history of problems with anesthesia: No Surgical History Surgical History H/O: hysterectomy History of Problems with Anesthesia: No Social History Social History Household Members: Family Household Members Other:: Lives with sister, never , walks daily Housing: House Alcohol intake: never Patient Tobacco Use Status: Former Tobacco user Quit Date: quit 2 or more yrs ago e-Cigarette/Vaping Use: Never Used Advance Directives: No Advance Directives Information Provided: Yes service: No Current occupational status: retired Cognitive needs: No Hearing needs: No Vision needs: No Meds Allergies Allergy/AdvReac Type Severity Reaction Status Date / Time No Known Allergies Allergy Unknown Verified 07/19/23 10:37 [No Known Allergies*] Exam Height,Weight and Vital Signs: Height 5 ft 6 in Weight 71.214 kg Pertinent Lab Results Pertinent Lab Results: Laboratory Tests 01/15/23 07/18/23 08:33 10:04 WBC 4.8 6.1 Hgb 12.9 13.3 Hct 40.6 40.9 Plt Count 266 345 D Sodium 140 140 Potassium 3.8 4.0 Chloride 108 107 Carbon Dioxide 26 27 BUN 16 18 H Creatinine 0.81 0.83 Narrative Narrative: EKG 05/2023 normal sinus rhythm with low-voltage with left axis deviation with PACs with nonspecific ST T wave changes ECHO 03/2023 Conclusions: - The left ventricular systolic function is normal. The calculated ejection fraction is 69% by biplane method. - There is moderate septal asymmetric hypertrophy. - Evidence suggests grade II (moderate) diastolic dysfunction. - No obvious valvular pathology seen on this study. - Mild pulmonary hypertension is present. Assessment and Plan Assessment Anesthesia Assessment: Chart Reviewed Final Anesthetic Review Family History of Problems with Anesthesia: No History of Problems with Anesthesia: No Documented by User: Marissa Parsons MD 11/06/23 09:59 [facility] Past Medical History Medical History A-fib CVA (cerebrovascular accident due to intracerebral hemorrhage) Breast mass Hypothyroidism Hyperlipidemia HTN (hypertension) Skin growth Tobacco dependence Postmenopausal Annual physical exam PVD (peripheral vascular disease) COPD (chronic obstructive pulmonary disease) Pneumonia Family History Family History Mother Heart problem Father Adenocarcinoma Substance use disorder Sister Myocardial infarct Surgical History Surgical History H/O: hysterectomy Social History Social History Household Members: Family Household Members Other:: Lives with sister, never , walks daily Housing: House Alcohol intake: never Patient Tobacco Use Status: Former Tobacco user Quit Date: quit 2 or more yrs ago e-Cigarette/Vaping Use: Never Used Advance Directives: No Advance Directives Information Provided: Yes service: No Current occupational status: retired Cognitive needs: No Hearing needs: No Vision needs: No Meds Allergies Allergy/AdvReac Type Severity Reaction Status Date / Time No Known Allergies Allergy Unknown Verified 07/19/23 10:37 [No Known Allergies*] Exam Airway Mallampati Class: II TM Dist: >3cm Neck ROM: Full Heart: rrr Lungs: cta Assessment and Plan Assessment Anesthesia Assessment: Anesthesia Plan Discussed Final Anesthetic Review NPO: Yes ASA Class: III Final Preanesthetic Review: No Changes in Pt Med Stat, Meds/Allgs Chart Reviewed and Consent Obtained/Reviewed Patient Risk: Low Procedure Risk: Low Anesthetic Plan Anesthetic Plan: MAC: Disposition: Standard PACU
[2023-11-06 09:58] VITALS: BMI 24.8
[2023-11-06 10:15] VITALS: BP 139/98; PULSE 70; RESP 16; TEMP 36.6; O2SAT 97
[2023-11-06] MEDS: Lactated Ringers 1,000 ML 100 ML IVCONT (10:29)
--- NOTE | 2023-11-06 11:42 | P.BOP_ITS ---
Brief Operative Note Date of Service: 11/06/23 Pre-op diagnosis: Screening Post-op diagnosis: other (Colon polyps) Procedure: Colonoscopy to the cecum with hot snare polypectomy x 4 Surgeon: Butch Zamorano MD Anesthesia: MAC Was an Milk Condenser used for this Procedure?: No Estimated blood loss (mL): 0 Pathology: other (A. Ascending colon polyp B. Transverse colon polyp C. Polyp at 20cm) Condition: stable Disposition: PACU
[2023-11-06 11:43] VITALS: BP 109/63; PULSE 68; RESP 16; TEMP 36.2; O2SAT 96
[2023-11-06 11:58] VITALS: BP 112/66; PULSE 69; RESP 15; O2SAT 98
[2023-11-06 12:13] VITALS: BP 144/77; PULSE 70; RESP 16; TEMP 36.2; O2SAT 99
--- NOTE | 2023-11-07 03:13 | OP_ITS ---
DATE OF SERVICE: 11/06/2023 SURGEON: Butch Zamorano MD INDICATIONS: The patient presents for evaluation of personal history of colorectal polyps, including a malignant colon polyp. Full consent has been obtained from her for this, including risks of bleeding and perforation. PREOPERATIVE DIAGNOSIS: Colorectal cancer screening and personal history of colon polyps, including a malignant colon polyp. POSTOPERATIVE DIAGNOSIS: PROCEDURE PERFORMED: Colonoscopy to the cecum with hot snare polypectomy x4. ESTIMATED BLOOD LOSS: COMPLICATIONS: ANESTHESIA: Monitored anesthesia care. ASSISTANTS: SPECIMENS: POSTOPERATIVE DIAGNOSES: Colorectal cancer screening and personal history of colon polyps, including a malignant colon polyp, colon polyps, diverticulosis, and internal hemorrhoids. DESCRIPTION OF PROCEDURE: The patient was placed in the left lateral decubitus position the digital rectal exam revealed no abnormalities. The Olympus video pediatric colonoscope was entered into the rectum and advanced easily to the cecum. Once in the cecum, I did identify normal-appearing cecal pouch with appendiceal orifice and a normal-appearing ileocecal valve. The entire cecum was well visualized and appeared normal. I did spend time inspecting the region of what I felt was the site of her previous polypectomy from last year. This was in the area between the appendiceal orifice and the ileocecal valve. I could visualize scarring in that area, but I did not visualize any sign of residual polyp tissue. The cecum otherwise appeared normal. The scope was then slowly withdrawn assessing all mucosal surfaces carefully. Preparation was excellent. In the ascending colon were 2 polyps. One was approximately 8 mm in diameter and was removed by hot snare polypectomy. The other polyp was more of a lobulated polyp, approximately 10 to 12 mm in diameter. This was removed by hot snare polypectomy, but not recovered. Both polypectomy sites appeared clean, without any sign of residual polyp nor bleeding. In the transverse colon was an approximately 10 mm polyp, which was removed by hot snare polypectomy and recovered by suction. The polypectomy site appeared clean, without any sign of residual polyp nor bleeding. In the sigmoid colon between 2 previously placed ink no and in an area of scarring was an approximately 8 to 10 mm polypoid lesion, which may be represented some residual tissue in regard to the previous polypectomy. This was removed by hot snare polypectomy and recovered by suction. The polypectomy site appeared clean, without any sign of residual polyp nor bleeding. I did not visualize any other polyps, colitis, or angiodysplasia. There was a moderate amount of diverticulosis. In the rectum, scope was retroflexed visualizing internal hemorrhoids, but no other pathology. The rectal mucosa appeared normal. The scope was straightened and withdrawn from the patient. She tolerated the procedure well and was returned to the recovery area in stable condition. IMPRESSION: 1. Colon polyps. 2. Diverticulosis. 3. Internal hemorrhoids. PLAN: The patient has been advised not to use any aspirin or NSAIDs for 1 week. I would recommend a repeat colonoscopy in 1 year for further screening and surveillance. She will otherwise see me as needed. This has been discussed with her sister, Agnieszka Beal. MD JAME Ludwig/KAVYA / [id number]
== END 2023-11-06 12:29 | disposition home or self-care (01) ==
PROVIDERS: PCP Internal Medicine; Visit Provider Internal Medicine
PROC: 0DJD8ZZ Inspection of Lower Intestinal Tract, Via Natural or Artificial Opening Endoscopic (ICD-10-PCS; CPT 45378; principal; 2023-11-06 10:40)
DX: Z12.11 Encounter for screening for malignant neoplasm of colon (principal); D12.2 Benign neoplasm of ascending colon; D12.3 Benign neoplasm of transverse colon; K57.30 Diverticulosis of large intestine without perforation or abscess without bleeding; K64.8 Other hemorrhoids; Z85.038 Personal history of other malignant neoplasm of large intestine; Z86.010 Personal history of colon polyps; I10 Essential (primary) hypertension; J44.9 Chronic obstructive pulmonary disease, unspecified; Z86.73 Personal history of transient ischemic attack (TIA), and cerebral infarction without residual deficits
CPT/HCPCS: 45385; 88305; J1596; J2704

== ENCOUNTER 2024-01-14 10:00 | Outpatient (AMB) | payer MEDICARE, SELFPAY ==
--- NOTE | 2024-01-14 10:02 | A.OFFPC_ITS ---
Vital Signs 01/14/24 10:03 Height 5 ft 5 in Weight 152 lb BMI 25.3 BP 118/80 Blood Pressure Location Lt brachial Position Sitting Pulse 71 Pulse Source Pulse Oximeter Pulse Oximetry (%) 94 Oxygen Delivery Method Room Air Intake Visit Reasons: 6 month follow up Intake Note: Pt is here today for 6 months follow up visit. Allergies No Known Allergies [No Known Allergies*] Allergy (Unknown, Verified 01/14/24 10:04) Medication List - Last Reconciled 01/14/24 by Marce Garcia MD albuterol sulfate 90 mcg/actuation 2 puffs inhalation Q6H PRN alendronate (Fosamax) 70 mg PO QWEEK atorvastatin 40 mg PO BEDTIME cholecalciferol (vitamin D3) 50 mcg PO DAILY diltiazem HCl CD 120 mg PO DAILY doxazosin 2 mg PO BEDTIME levothyroxine 75 mcg PO DAILY umeclidinium-vilanterol 62.5-25 mcg/actuation (Anoro Ellipta) 1 inh inhalation DAILY Tobacco use date assessed: 01/14/24 Fall risk assessment: No Falls in past year Last assessed Fall Risk: 01/14/24 Dental Screening Dental Screen Date: 01/14/24 Did you have a dental visit in the last 12 months?: Yes Did you have a dental problem in the last 6 months where you did not have access to dental care?: No Was dental information given to patient?: Patient has dentist HPI 6 month follow up HPI Details Pt presents for f/u HTN, hyperlipid, COPD., stable on meds. PFSH Medical History A-fib CVA (cerebrovascular accident due to intracerebral hemorrhage) Breast mass Hypothyroidism Hyperlipidemia HTN (hypertension) Skin growth Tobacco dependence Postmenopausal Annual physical exam PVD (peripheral vascular disease) COPD (chronic obstructive pulmonary disease) Pneumonia Surgical History H/O: hysterectomy Family History Mother Heart problem Father Adenocarcinoma Substance use disorder Sister Myocardial infarct Social History Household Members: Family Household Members Other:: Lives with sister, never , walks daily Housing: House Alcohol intake: never Patient Tobacco Use Status: Former Tobacco user e-Cigarette/Vaping Use: Never Used service: No Current occupational status: retired Cognitive needs: No Hearing needs: No Vision needs: No Questionnaire PHQ-9 Over the last 2 weeks, how often have you been bothered by any of the following problems? 1. Little interest or pleasure in doing things: nearly every day 2. Feeling down, depressed, or hopeless: not at all 3. Trouble falling or staying asleep, or sleeping too much: not at all 4. Feeling tired or having little energy: not at all 5. Poor appetite or overeating: not at all 6. Feeling bad about yourself - or that you are a failure or have let yourself or your family down: not at all 7. Trouble concentrating on things, such as reading the newspaper or watching television: not at all 8. Moving or speaking so slowly that other people could have noticed. Or the opposite - being so fidgety or restless that you have been moving around a lot more than usual: not at all 9. Thoughts that you would be better off or of hurting yourself in some way: not at all Total score: 3 Depression Screening Interpretation: Negative Depression Screening Done: Yes Source: Developed by Drs. Butch Damian, Sharon Betancur, Sam Payton and colleagues, with an educational radha from [employer]. Thrive Questionnaire Date Thrive assessed: 01/14/24 I am a: Patient What is your living situation today?: I have a steady place to live Within the past 12 months, did the food you bought not last and you didn't have the money to get more?: Never true Within the past 12 months, did you worry whether your food would run out before you got money to buy more?: Never true Do you have trouble paying for medicines?: No Do you have trouble getting transportation to medical appointments?: No Do you have trouble paying your heating and electricity bill?: No Do you have trouble taking care of your child, family member or friend?: No Do you have trouble with day-to-day activities such as bathing, preparing meals, shopping, managing finances, etc.?: No Are you currently unemployed and looking for a job?: No Are you interested in more education?: No Please select the resources that you would like help with: Housing/Assisted Currently or been in a relationship where the following occur: No concerns reported THRIVE Score: 0 AUDIT C Alcohol Use Questionnaire (AUDIT-C) 1. How often do you have a drink containing alcohol?: Never 3. How often do you have six or more drinks on one occasion?: Never Total Score: 0 TALA-7 AMB Questionnaire TALA-7 Date TALA - 7 assessed: 01/14/24 Feeling nervous, anxious, or on edge: 0 = Not at all Not being able to stop or control worryin = Not at all Worrying too much about different things: 0 = Not at all Trouble relaxin = Not at all Being so restless that it is hard to sit still: 0 = Not at all Becoming easily annoyed or irritable: 0 = Not at all Feeling afraid as if something awful might happen: 0 = Not at all Total TALA-7 score (0-4 normal; 5-9 mild; 10-14 moderate; 15-21 severe): 0 Source: Developed by Drs. Butch Damian, Sharon Betancur, Sam Payton and colleagues, with an educational radha from [employer]. Review of Systems Const All systems reviewed & are unremarkable except as noted in HPI and below Reports no additional complaints Eyes Reports no additional complaints ENT Reports no additional complaints Card Reports no additional complaints Resp Reports no additional complaints GI Reports no additional complaints Reports no additional complaints Physical exam (Primary Care) Vital Signs: Last Vital Signs Pulse 71 01/14/24 10:03 BP 118/80 01/14/24 10:03 Pulse Ox 94 01/14/24 10:03 Oxygen Delivery Method Room Air 01/14/24 10:03 BMI result Body Mass Index 25.3 Tobacco/Smoking Status: Tobacco use Status Tobacco use date assessed 01/14/24 01/14/24 10:06 Patient Tobacco Use Status Former Tobacco user 01/14/24 10:06 e-Cigarette/Vaping Use Never Used 01/14/24 10:06 PHQ-9: PHQ-9 Score PHQ-9: Total score 3 01/14/24 10:06 Depression Screening Interpretation: Negative Thrive Assessment: Date of Thrive Assessment Date Thrive assessed 01/14/24 01/14/24 10:06 Currently or been in a relationship where the following occur: No concerns reported Assessment and Plan Assessment & Plan (1) COPD (chronic obstructive pulmonary disease): Code(s): J44.9 - Chronic obstructive pulmonary disease, unspecified (2) Annual physical exam: Code(s): Z00.00 - Encounter for general adult medical examination without abnormal findings (3) Hyperlipidemia: Code(s): E78.5 - Hyperlipidemia, unspecified (4) Hypothyroidism: Code(s): E03.9 - Hypothyroidism, unspecified (5) A-fib: Comment: episode 11/19 during hospitalization for COPD Code(s): I48.91 - Unspecified atrial fibrillation (6) Osteoporosis: Comment: DEXA 2020 SD-3.1 (AP spine) Code(s): M81.0 - Age-related osteoporosis without current pathological fracture Orders: Orders Comprehensive Diamond. Panel Fast 6 Months E03.9 - Hypothyroidism, unspecified, E78.5 - Hyperlipidemia, unspecified, I48.91 - Unspecified atrial fibrillation, J44.9 - Chronic obstructive pulmonary disease, unspecified, M81.0 - Age-related osteoporosis without current pathological fracture, Z00.00 - Encounter for general adult medical examination without abnormal findings Complete Blood Count Auto Diff 6 Months E03.9 - Hypothyroidism, unspecified, E78.5 - Hyperlipidemia, unspecified, I48.91 - Unspecified atrial fibrillation, J44.9 - Chronic obstructive pulmonary disease, unspecified, M81.0 - Age-related osteoporosis without current pathological fracture, Z00.00 - Encounter for general adult medical examination without abnormal findings TSH reflex Free T4 6 Months E03.9 - Hypothyroidism, unspecified, E78.5 - Hyperlipidemia, unspecified, I48.91 - Unspecified atrial fibrillation, J44.9 - Chronic obstructive pulmonary disease, unspecified, M81.0 - Age-related osteoporosis without current pathological fracture, Z00.00 - Encounter for general adult medical examination without abnormal findings Lipid Panel 6 Months E03.9 - Hypothyroidism, unspecified, E78.5 - Hyperlipidemia, unspecified, I48.91 - Unspecified atrial fibrillation, J44.9 - Chronic obstructive pulmonary disease, unspecified, M81.0 - Age-related osteoporosis without current pathological fracture, Z00.00 - Encounter for general adult medical examination without abnormal findings Vitamin D 25-OH Total 6 Months E03.9 - Hypothyroidism, unspecified, E78.5 - Hyperlipidemia, unspecified, I48.91 - Unspecified atrial fibrillation, J44.9 - Chronic obstructive pulmonary disease, unspecified, M81.0 - Age-related osteoporosis without current pathological fracture, Z00.00 - Encounter for general adult medical examination without abnormal findings Coding Diagnoses COPD (chronic obstructive pulmonary disease) J44.9 Annual physical exam Z00.00 Hyperlipidemia E78.5 Hypothyroidism E03.9 A-fib I48.91 Osteoporosis M81.0
[2024-01-14 10:03] VITALS: BP 118/80; PULSE 71; O2SAT 94; BMI 25.3
== END 2024-01-14 10:42 | disposition home or self-care (01) ==
PROVIDERS: PCP Internal Medicine; Visit Provider Internal Medicine
DX: J44.9 Chronic obstructive pulmonary disease, unspecified (principal); E78.5 Hyperlipidemia, unspecified; E03.9 Hypothyroidism, unspecified; I48.91 Unspecified atrial fibrillation; M81.0 Age-related osteoporosis without current pathological fracture
CPT/HCPCS: 99214

== ENCOUNTER 2024-06-18 13:59 | Outpatient (AMB) | payer MEDICARE, SELFPAY ==
--- OUTSIDE RECORDS SUMMARY | 2024-06-18 14:02 | XMS_ITS ---
Author Organization [facility] Address [address] [place] [address] Care Team Providers Care Loss Control Engineer Name Role Phone Marce Garcia MD Primary Care Provider Butch Meyers [phone] REASON FOR VISIT sc reening,hx polyps,adenocarcinoma in polyp PROBLEMS Problem Type ICD Code Onset Dates Problem Status W/U Status Risk SNOMED Code Notes Problem Diverticulosis of large intestine without perforation or abscess without bleeding (K57.30) Active confirmed Diverticul ar disease of colon (394148399) Encounters Encounter Location Date Provider Diagnosis [facility] [address] [place], [place] [phone] 11/06/2023 Butch Zamorano Encounter for scre ening colonoscopy Z12.11 ; Colon polyps K63.5 ; Diverticulosis of large intestine without perforation or abscess without bleeding K57.30 and Other hemorrhoids K64.8 ASSESSMENTS Encounter Date Diagnosis Assessment Notes Treatment Notes Treatment Clinical Notes 11/06/2023 Encounter for screening colonoscopy (ICD-10 - Z12.11) 11/06/2023 Colon polyps (ICD-10 - K63.5) 11/06/2023 Diverticulosis of large intestine without perforation or abscess without bleeding (ICD-10 - K57.30) 11/06/2023 Other hemorrhoids (ICD-10 - K64.8) PLAN OF TREATMENT No Information
--- OUTSIDE RECORDS SUMMARY | 2024-06-18 14:02 | XMS_ITS ---
Author Organization [facility] Address [address] [place] [address] Care Team Providers Care Lumber Tying Machine Operator Name Role Phone Marce Garcia MD Primary Care Provider UnavailButch Mayers [phone] REASON FOR VISIT repeat colonoscopy Encounters Encounter Location Date Provider Diagnosis [facility] [address] [place] [address] 08/14/2023 Butch Zamorano PLAN OF TREATMENT No Information
--- OUTSIDE RECORDS SUMMARY | 2024-06-18 14:02 | XMS_ITS | Patient Health Record ---
Author Organization [facility] Address [address] [place] [address] Care Team Providers Care Process Specialist Name Role Phone Marce Garcia MD Primary Care Provider Butch Meyers Unavailable [phone] ALLERGIES No Known Allergies RESULTS Component Value Reference Range Notes Pathology (Not yet reviewed by provider) Interpretation: Performing Lab:[facility], [address] [place] [id number] Notes/Report: REASON FOR REFERRAL No Information MEDICATIONS Medication SIG (Take, Route, Frequency, Duration) Notes Start Date End Date Status Levothyroxine Sodium 75 MCG Oral for 90 Active Atorvastatin Calcium 40 MG Oral for 90 Active dilTIAZem HCl ER Coated Beads 120 MG TAKE 1 CAPSULE BY MOUTH DAILY Oral for 90 Active Doxazosin Mesylate 2 MG TAKE 1 TABLET BY MOUTH AT BEDTIME Oral for 90 Active Albuterol Sulfate HFA 108 (90 Base) MCG/ACT TAKE 2 PUFFS INHALED EVERY 6 HOURS NEEDED FOR SHORTNESS OF BREATH OR WHEEZING Inhalation for 25 Active Doxycycline Hyclate 100 MG Oral for 7 Active Anoro Ellipta 62.5-25 MCG/ACT Inhalation for 30 Active IMMUNIZATIONS Vaccine Route Administration Date Status Comme nts Influenza Unknown 11/27/2022 Pending SOCIAL HISTORY Tobacco Use: Social History Observation Description Date Details (start date - stop date) Never Smoker NA - NA Sex Assigned At : Social History Observation Description Sex Assigned At Unknown Tobacco Use/Smoking Question Answer Notes Patient is a nonsmoker Alcohol Screen Question Answer Notes Did you have a drink contain ing alcohol in the past year? Yes How often did you have a dri nk containing alcohol in the past year? Never (0 point) How many drinks did you have on a typical day when you were drinking in the past year? 1 or 2 drinks (0 point) How often did you have 6 or more drinks on one occasion in the past year? Never (0 point) Points 0 Interpretation Negative PROBLEMS Problem Type ICD Code Onset Dates Problem Status W/U Status Risk SNOMED Code Notes Problem Positive colorectal cancer screening using Cologuard test (R19.5) Active confirmed 223885237 Problem Diverticulosis of colon (K57.30) Active confirmed Diverticulosi s of colon (952833130) Problem Colon cancer screening (Z12.11) Active confirmed Colon cancer screening (670644475) Problem Colon polyps (K63.5) Active confirmed Polyp of colon (disorder) (06717174) Problem History of adenomatous polyp of colon (Z86.010) Active confirmed 918164970 Problem 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 confirmed 45543517269308 Problem Diverticulosis of large intestine without perforation or abscess without bleeding (K57.30) Active confirmed Diverticul ar disease of colon (211091052) VITAL SIGNS Temperature 97.2 degrees Fahrenheit 07/11/2023 Blood pressure diastolic 00 mm Hg 07/11/2023 Height 66 in 07/11/2023 Blood pressure systolic 00 mm Hg 07/11/2023 Weight 157 lbs 07/11/2023 BMI 25.34 kg/m2 07/11/2023 Encounters Encounter Location Date Provider Diagnosis [facility] [place] [address] [place] [phone] 11/06/2023 Butch Zamorano Encounter for screen ing colonoscopy Z12.11 ; Colon polyps K63.5 ; Diverticulosis of large intestine without perforation or abscess without bleeding K57.30 and Other hemorrhoids K64.8 [facility] [address] [place] [phone] 08/14/2023 Butch Zamorano [facility] [address] [place] [phone] 07/11/2023 Butch Zamorano Colon cancer screeni ng Z12.11 ; Adenocarcinoma in a polyp C80.1 ; Colon polyps K63.5 and History of adenomatous polyp of colon Z86.010 ASSESSMENTS Encounter Date Diagnosis Assessment Notes Treatment Notes Treatment Clinical Notes 11/06/2023 Encounter for screening colonoscopy (ICD-10 - Z12.11) 11/06/2023 Colon polyps (ICD-10 - K63.5) 07/11/2023 Colon cancer screening (ICD-10 - Z12.11) 07/11/2023 Adenocarcinoma in a polyp (ICD-10 - C80.1) 11/06/2023 Diverticulosis of large intestine without perforation or abscess without bleeding (ICD-10 - K57.30) 07/11/2023 Colon polyps (ICD-10 - K63.5) 11/06/2023 Other hemorrhoids (ICD-10 - K64.8) 07/11/2023 History of adenomatous polyp of colon (ICD-10 - Z86.010) PLAN OF TREATMENT Pending Test Test Name Order Date Pathology 11/06/2023 Future Test Test Name Order Date COLONOSCOPY 11/27/2022 COLONOSCOPY 07/11/2023 Insurance Providers Payer Name Payer Address Payer Phone Subscriber Number Group Number Insured Name Patient Relationship to Insured Coverage Start Date Coverage End Date MEDICARE OF [place] [address] [place] [address] [phone] [id number] [place] Self - patient is the insured [employer] ATT[employer] CLAIMS [address] [place] [address] [id number] [place] Self - patient is the insured MEDICAL (GENERAL) HISTORY Medical History History ICD Code Hypertension Stroke with a basal ganglia bleed 2020--some memory issues Afib COPD Hypothyroidism Hyperlipidemia Denies KS,DM,CVA,renal disease Pneumonia 07/2023 left side Initial screening colonoscop y in 01/2023, due to a + Cologuard, with removal of multiple large polyps, including a polyp with intramucosal adenocarcinoma but with adequate margins and not needing any surgery. Surgical History Surgery Date(Month/Year) THI Benign breast biopsy Facial lesion removed 2020
--- OUTSIDE RECORDS SUMMARY | 2024-06-18 14:02 | XMS_ITS ---
Author Organization [facility] Address [address] [place] [address] Care Team Providers Care Bridal Consultant Name Role Phone Marce Garcia MD Primary Care Provider Butch Meyers Unavailable [phone] ALLERGIES No Known Allergies REASON FOR VISIT Patient presents today for a repeat colonoscopy MEDICATIONS Medication SIG (Take, Route, Frequency, Duration) Notes Start Date End Date Status Levothyroxine Sodium 75 MCG Oral for 90 Active Atorvastatin Calcium 40 MG Oral for 90 Active Albuterol Sulfate HFA 108 (90 Base) MCG/ACT TAKE 2 PUFFS INHALED EVERY 6 HOURS NEEDED FOR SHORTNESS OF BREATH OR WHEEZING Inhalation for 25 Active Doxycycline Hyclate 100 MG Oral for 7 Active Anoro Ellipta 62.5-25 MCG/ACT Inhalation for 30 Active dilTIAZem HCl ER Coated Beads 120 MG TAKE 1 CAPSULE BY MOUTH DAILY Oral for 90 Active Doxazosin Mesylate 2 MG TAKE 1 TABLET BY MOUTH AT BEDTIME Oral for 90 Active SOCIAL HISTORY Tobacco Use: Social History Observation [...] W/U Status Risk SNOMED Code Notes Problem Colon cancer screening (Z12.11) Active confirmed Colon cancer screening (306975567) Problem Colon polyps (K63.5) Active confirmed Polyp of colon (disorder) (36577461) Problem History of adenomatous polyp of colon (Z86.010) Active confirmed 963790705 Problem 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 [address] [place] [address] 07/11/2023 Butch Zamorano Colon cancer screeni ng Z12.11 ; Adenocarcinoma in a polyp C80.1 ; Colon polyps K63.5 and History of adenomatous polyp of colon Z86.010 ASSESSMENTS Encounter Date Diagnosis Assessment Notes Treatment Notes Treatment Clinical Notes 07/11/2023 Colon cancer screening (ICD-10 - Z12.11) 07/11/2023 Adenocarcinoma in a polyp (ICD-10 - C80.1) 07/11/2023 Colon polyps (ICD-10 - K63.5) 07/11/2023 History of adenomatous polyp of colon (ICD-10 - Z86.010) PLAN OF TREATMENT Future Test Test Name Order Date COLONOSCOPY 07/11/2023 Next Appt Details Follow Up: prn, Reason: Progress Notes * Examination Category Sub-Category Detail Notes General Examination GENERAL APPEARANCE: pleasant , well nourished, well developed, in no acute distress HEAD: EYES: sclera non-icteric EARS: NOSE: THROAT: NECK/THYROID: no cervical lymphade nopathy, neck supple HEART: S1, S2 normal CHEST: LUNGS: clear to auscultatio n bilaterally ABDOMEN: normal bowel sounds, no guarding or rigidity, no guarding or rigidity, no masses palpable, soft, nontender, nondistended NEUROLOGIC: alert and oriented SKIN: nonjaundiced, no spi brody angiomata EXTREMITIES: no edema PERIPHERAL PULSES: BACK: BREASTS: MUSCULOSKELETAL: MALE GENITOURINARY: LYMPH NODES: RECTAL EXAM: FEMALE GENITOURINARY: ORAL CAVITY: mucosa moist
--- NOTE | 2024-06-18 14:29 | AM.OFFWIN_ITS ---
Intake Vital Signs 06/18/24 14:41 Weight 146 lb BP 122/80 Blood Pressure Location Rt brachial Position Sitting Pulse 76 Pulse Source Pulse Oximeter Temp 99.5 F Temp Source Oral Pulse Oximetry (%) 95 Oxygen Delivery Method Room Air Intake Visit Reasons: EP Sore throat Intake Note: Patient here for sore throat, she states her niece was recently visiting and tested positive for covid. Patient Tobacco Use Status: Former Tobacco user Allergies No Known Allergies [No Known Allergies*] Allergy (Unknown, Verified 06/18/24 14:42) Do you need a note to return to daycare/school/sports/work: No HPI HPI Comments History of Present Illness Details History The patient is a 73-year-old female presenting with a cough and suspected COVID- 19 exposure. The cough onset was recent, with no accompanying symptoms such as shortness of breath, wheezing, or fever. Oxygen saturation measured at 92% initially, and subsequent readings showed improvement to 95%. The patient denied symptoms such as headaches, ear pain, or sinus pain and has no history of asthma or COPD. The exposure occurred when the patient's niece, who tested positive for COVID-19, visited her home. The patient has not performed a home test for COVID- 19. There is no report of fatigue or any other significant symptoms aside from the sore throat. 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 She is currently retired and maintains regular health check- ups, with prior oxygen saturation levels reported at 94%. Physical Exam General: Cooperative, healthy appearing, comfortable and no acute distress Orientation/consciousness: Patient oriented x3 Limitations: No limitations Head: Normal to inspection Ears: Hearing grossly normal bilaterally, external ears normal and TM's normal bilaterally Nose: Normal external nose present, Normal nares present and No nasal discharge present Face and sinus: Normal facial exam and Yes sinuses nontender Mouth: Normal oral and palatal mucosa present and moist mucous membranes Throat: Yes tonsils normal, Yes uvula midline. Posterior oropharynx erythema Eyes: Appearance normal, both eyes and all related structures Neck: Normal visual inspection Respiratory: Clear to auscultation bilaterally. Normal respiratory effort, able to speak in complete sentences, no respiratory distress, not tachypneic, no tripod positioning and no use of accessory muscles Cardiovascular: Regular rate and rhythm. Normal S1 and S2 Skin: No rashes or lesions noted Neuro: Patient oriented x3 Extremities: Normal to inspection and Yes no clubbing, cyanosis or edema PFSH Medical History A-fib CVA (cerebrovascular accident due to intracerebral hemorrhage) Breast mass Hypothyroidism Hyperlipidemia HTN (hypertension) Skin growth Tobacco dependence Postmenopausal Annual physical exam PVD (peripheral vascular disease) COPD (chronic obstructive pulmonary disease) Pneumonia Surgical History H/O: hysterectomy Family History Mother Heart problem Father Adenocarcinoma Substance use disorder Sister Myocardial infarct Social History Household Members: Family Household Members Other:: Lives with sister, never , walks daily Housing: House Alcohol intake: never Patient Tobacco Use Status: Former Tobacco user e-Cigarette/Vaping Use: Never Used service: No Current occupational status: retired Cognitive needs: No Hearing needs: No Vision needs: No Review of Systems Const All systems reviewed & are unremarkable except as noted in HPI and below Physical Exam Vital Signs: Last Vital Signs Temp 99.5 F 06/18/24 14:41 Pulse 76 06/18/24 14:41 BP 122/80 06/18/24 14:41 Pulse Ox 92 06/18/24 14:41 Oxygen Delivery Method Room Air 06/18/24 14:41 Assessment & Plan Assessment & Plan (1) URI, acute: Code(s): J06.9 - Acute upper respiratory infection, unspecified Plan: Plan - Conducted a nasal swab test for COVID-19, influenza, and respiratory syncytial virus RSV. - Referral of test samples for laboratory analysis; results to be communicated to the patient by the following morning. - Advise on infection control measures to prevent potential spread if COVID-19 positive. - No immediate intervention required for the oxygen saturation level and respiratory status, as lung examination findings were normal and the patient reports no significant respiratory distress. - No additional testing or medication prescribed at this time; management based on test results and patient-reported symptoms. - Advised pt to manage her symptoms, mostly a sore throat, with OTC meds. Patient was informed and verbally consented to the use of an ambient scribe for clinic note documentation during this visit Coding Level of Care Code Est Pt Level 3 (58035) Diagnoses URI, acute J06.9
[2024-06-18 14:41] VITALS: BP 122/80; PULSE 76; TEMP 37.5; O2SAT 95
== END 2024-06-18 15:37 | disposition home or self-care (01) ==
PROVIDERS: PCP Internal Medicine; Visit Provider Physician Assistant
DX: J06.9 Acute upper respiratory infection, unspecified (principal)

== ENCOUNTER 2024-06-18 13:59 | Outpatient (REF) | payer MEDICARE, SELFPAY ==
[2024-06-18 17:40] LABS: Influenza A PCR NEGATIVE (Negative); Influenza B PCR NEGATIVE (Negative); Resp Syncy Virus RNA Qual PCR NEGATIVE (Negative); SARS COV2 PCR INHOUSE POSITIVE (Negative)
== END 2024-06-18 14:00 | disposition home or self-care (01) ==
LOC: HO.LAB 13:59
PROVIDERS: PCP Internal Medicine; Visit Provider Physician Assistant
DX: J06.9 Acute upper respiratory infection, unspecified (principal)
CPT/HCPCS: 0241U; 99212

== ENCOUNTER 2024-07-24 09:48 | Outpatient (REF) | payer MEDICARE, SELFPAY ==
[2024-07-24 13:55] LABS: MANUAL DIFF FLAG NO
[2024-07-24 13:57] LABS: Basophils Absolute Auto 0.1 X10*3/uL (0.0-0.2); Eosinophils Absolute Auto 0.2 X10*3/uL (0.0-0.4); Eosinophils Percent Auto 2.8 % (0-4); Hematocrit 42.1 % (37.0-47.0); Hemoglobin 13.5 g/dl (12.0-16.0); Imm Gran Abs Auto 0.02 X10*3/uL (0.00-0.03); Imm Gran Pct Auto 0.3 % (0.0-0.4); Lymphocytes Absolute Auto 1.7 X10*3/uL (1.2-4.9); Lymphocytes Percent Auto 24.4 % (20-40); Mean Corpuscular HGB Conc 32.1 g/dl (31.0-35.0); Mean Corpuscular Hemoglobin 29.3 pg (27.0-33.0); Mean Corpuscular Volume 91.5 fL (80.0-98.0); Mean Platelet Volume 10.8 fL (9.4-12.3); Monocytes Absolute Auto 0.6 X10*3/uL (0.1-1.2); Monocytes Percent Auto 8.1 % (2-11); Neutrophils Absolute Auto 4.3 x10*3/uL (2.0-8.3); Neutrophils Percent Auto 63.4 % (45-73); Platelet Count 287 X10*3/uL (160-400); Red Cell Distribution Width 13.3 % (11.0-16.0); White Blood Count 6.8 X10*3/uL (4.8-10.8)
[2024-07-24 14:57] LABS: Alanine Aminotransferase 14 U/L (0-31); Alkaline Phosphatase 75 U/L (39-117); Anion Gap 13 (12-20); Aspartate Amino Transferase 25 U/L (5-31); Bilirubin Total 0.6 mg/dL (0.0-1.0); Blood Urea Nitrogen 13 mg/dL (9-16); Calcium 8.6 mg/dL (8.4-10.2); Carbon Dioxide 26 mmol/L (22-29); Chloride 107 mmol/L (96-108); Cholesterol 172 mg/dL (<200); Estimated Glomerular Filt Rate > 60; Glucose Fasting 93 mg/dL (60-99); HDL Cholesterol 58 mg/dL (>40); LDL Cholesterol Calculated 99 mg/dL (<100); Potassium 4.1 mmol/L (3.3-5.1); Sodium 142 mmol/L (135-145); Triglycerides 75 mg/dL (<150)
[2024-07-24 15:17] LABS: TSH reflex Free T4 2.19 uIU/mL (0.32-4.0); Vitamin D 25-OH Total 43.8 ng/mL (>30)
== END 2024-07-24 09:49 | disposition home or self-care (01) ==
LOC: HO.HMGCLDS 09:48
PROVIDERS: PCP Internal Medicine; Visit Provider Internal Medicine
DX: Z00.00 Encounter for general adult medical examination without abnormal findings (principal); M81.0 Age-related osteoporosis without current pathological fracture; I48.91 Unspecified atrial fibrillation; J44.9 Chronic obstructive pulmonary disease, unspecified; E03.9 Hypothyroidism, unspecified; E78.5 Hyperlipidemia, unspecified
CPT/HCPCS: 36415; 80053; 80061; 82306; 84443; 85025

== ENCOUNTER 2024-07-28 08:57 | Outpatient (AMB) | payer MEDICARE, SELFPAY ==
[2024-07-28 08:58] VITALS: BP 134/86; PULSE 66; TEMP 36.7; O2SAT 95; BMI 26.0
--- NOTE | 2024-07-28 08:58 | A.OFFVIS_ITS ---
Intake Vital Signs 07/28/24 08:58 Height 5 ft 5 in Weight 156 lb BMI 26.0 BP 134/86 Blood Pressure Location Lt brachial Position Sitting Pulse 66 Pulse Source Pulse Oximeter Temp 98.0 F Temp Source Oral Pulse Oximetry (%) 95 Oxygen Delivery Method Room Air Intake Visit Reasons: MICHAEL G0439 Allergies No Known Allergies [No Known Allergies*] Allergy (Unknown, Verified 07/28/24 09:00) Medication List - Last Reconciled 07/28/24 by Marce Garcia MD albuterol sulfate 90 mcg/actuation 2 puffs inhalation Q6H PRN alendronate (Fosamax) 70 mg PO QWEEK atorvastatin 40 mg PO BEDTIME cholecalciferol (vitamin D3) 50 mcg PO DAILY diltiazem HCl CD 120 mg PO DAILY doxazosin 2 mg PO BEDTIME levothyroxine 75 mcg PO DAILY umeclidinium-vilanterol 62.5-25 mcg/actuation (Anoro Ellipta) 1 inh inhalation DAILY HPI [facility] G0439 HPI Details Initiated the conversation about Advanced Directives. Advanced Directives help? patients prepare for current and future decisions about their medical treatment? and place of care. Discussed with patient that it is a process where a patients? current condition and prognosis are reviewed, their wishes for information? regarding their illness are elicited, and likely medical dilemmas are presented? and options discussed. The form can be amended as needed, reviewed yearly and? make changes as needed IPPE/AWV ? year old presents? for her ? Annual? Wellness Visit, initial visit.? Medical / Social History Reviewed? Past Medical History ?Yes? . ? [place]? of Care / Care Team list updated ?Yes . ? Surgical/Hospitalization? History ?Yes . ? Current Medications? (including OTC and supplements) ?Yes . ? Family History ?Yes? . ? Tobacco? Control form ?Yes . ? AUDIT-C (Alcohol use) form? ?Yes . ? Illicit drug use in Social? History ?Yes . ? Current diagnosis of? depression? ?No ? Appropriate PHQ2/PHQ9? completed ?Yes . ? Data entered by ?Medical? Leisure Travel Agent and reviewed by provider ? Fall Risk ? Fall? History? Have you had any falls with? injury in the past year? ?No . ? Have you had two or more? falls in the past year? ?No . ? Fall Risk Assessment: ?No? falls in the past year . ? HRA filled out by? the patient, reviewed by Provider and scanned. ? IPPE/AWV ? Balance? [place]? ?Yes . ? Tandem? walk ?Yes . ? Walk and? Turn ?Yes . ? Rise from? sit to stand ?Yes . ?Vision? Corrective? lens ?Yes ? Vision? screen ? Up-to-date, has an appointment [] for vision? screening and glaucoma screening ?Hearing? Whisper? test ?pass .? Initiated the conversation about Advanced Directives. Advanced Directives help? patients prepare for current and future decisions about their medical treatment? and place of care. Discussed with patient that it is a process where a patients? current condition and prognosis are reviewed, their wishes for information? regarding their illness are elicited, and likely medical dilemmas are presented? and options discussed. The form can be amended as needed, re viewed yearly and? make changes as needed Written? Plan?Completed. See Patient? Documents. [facility] Medical History (Updated 07/28/24 @ 09:46 by Marce Garcia MD) A-fib CVA (cerebrovascular accident due to intracerebral hemorrhage) Breast mass Hypothyroidism Hyperlipidemia HTN (hypertension) Skin growth Tobacco dependence Postmenopausal Annual physical exam PVD (peripheral vascular disease) COPD (chronic obstructive pulmonary disease) Pneumonia Surgical History H/O: hysterectomy Family History Mother Heart problem Father Adenocarcinoma Substance use disorder Sister Myocardial infarct Social History Household Members: Family Household Members Other:: Lives with sister, never , walks daily Housing: House Alcohol intake: never Patient Tobacco Use Status: Former Tobacco user e-Cigarette/Vaping Use: Never Used service: No Current occupational status: retired Cognitive needs: No Hearing needs: No Vision needs: No Questionnaire Medicare Wellness Checkup [age] What gender do you identify with?: female During the past 4 weeks, how much have you been bothered by emotional problems such as feeling anxious, depressed, irritable, sad or downhearted, and blue?: not at all During the past 4 weeks, has your physical & emotional health limited your social activities with family, friends, neighbors, or groups?: not at all During the past 4 weeks, how much bodily pain have you generally had?: no pain During the past 4 weeks, was someone available to help you if you needed & wanted help?: no, not at all During the past 4 weeks, what was the hardest physical activity you could do for at least 2 minutes?: very heavy Can you get to places out of walking distance without help? (For eg., can you travel alone on buses, taxis or drive your car?): Yes Can you go shopping for groceries or clothes without someone's help?: No Can you prepare your own meals?: Yes Can you do your housework without help?: Yes Because of any health problems, do you need the help of another person with your personal care needs such as eating, bathing, dressing or getting around the house?: No Can you handle your own money without help?: Yes During the past 4 weeks, how would you rate your health in general?: very good During the past 4 weeks how have things been going for you?: very well; could hardly better Are you having difficulties driving your car?: no Do you always fasten your seat belt when you are in a car?: yes, usually During past 4 weeks, have you been bothered by the following: never: Falling or dizzy when standing up, Sexual problems?, Trouble eating well?, Teeth or denture problems?, Problems using the telephone? and Tiredness or fatigue? Have you fallen 2 or more times in the past year?: No Are you afraid of falling?: No Are you a smoker?: no During the past 4 weeks, how many drinks of wine, beer, or other alcoholic beverages did you have?: no alcohol at all Do you exercise for about 20 minutes 3 or more times a week?: yes, some of the time Have you been given information to help with the following?: yes: Keeping track of your medications? and no: Hazards in your house that might hurt you? How often do you have trouble taking medicines the way you have been told to take them?: I always take medicine as prescribed How confident are you that you can control & manage most of your health problems?: very confident What is your race?: White Mini Mental State Exam (MMSE) Orientation What is the (year) (season) (date) (day) (month)?: year, season, date, day and month Where are we (state) (county) (town or city) (hospital) (floor)?: state, county, town or city, hospital/clinic and floor Registration Name of 3 unrelated objects clearly and slowly, then ask patient to repeat all 3 of them. (1st repeat determines score. Make sure they can repeat all three): object 1, object 2 and object 3 Attention & Calculation (CHOOSE ONE) Spell WORLD backwards (DLROW): 5 letters Recall Ask patient to repeat the 3 items from question #3.: object 1, object 2 and object 3 Language Show patient a wristwatch & ask what it is. Repeat for pencil.: watch and pencil Ask the patient to repeat the phrase 'No ifs, ands, or buts' after you.: correct Ask the patient to 'take a piece of paper with their right hand' 'fold paper in half' 'place paper on floor': take paper in right hand, fold paper in half and place paper on floor Print the sentence 'CLOSE YOUR EYES' on a piece. If patient actually closes eyes then score.: followed written direction Give patient a blank piece of paper & ask to write a sentence. Score if it contains a noun & verb.: sentence contains subject and verb Score Score: 29 PHQ-9 Over the last 2 weeks, how often have you been bothered by any of the following problems? 1. Little interest or pleasure in doing things: not at all 2. Feeling down, depressed, or hopeless: not at all 3. Trouble falling or staying asleep, or sleeping too much: not at all 4. Feeling tired or having little energy: not at all 5. Poor appetite or overeating: not at all 6. Feeling bad about yourself - or that you are a failure or have let yourself or your family down: not at all 7. Trouble concentrating on things, such as reading the newspaper or watching television: not at all 8. Moving or speaking so slowly that other people could have noticed. Or the opposite - being so fidgety or restless that you have been moving around a lot more than usual: not at all 9. Thoughts that you would be better off or of hurting yourself in some way: not at all Total score: 0 Depression Screening Interpretation: Negative Depression Screening Done: Yes 55387 - PHQ-9 Billing: Yes Source: Developed by Drs. Butch Damian, Sharon Betancur, Sam Payton and colleagues, with an educational radha from [employer]. Review of Systems Const All systems reviewed & are unremarkable except as noted in HPI and below Reports no additional complaints Eyes Reports no additional complaints ENT Reports no additional complaints Card Reports no additional complaints Resp Reports no additional complaints GI Reports no additional complaints Reports no additional complaints Musc Reports no additional complaints Physical Exam Vital Signs: Last Vital Signs Temp 98.0 F 07/28/24 08:58 Pulse 66 07/28/24 08:58 BP 134/86 07/28/24 08:58 Pulse Ox 95 07/28/24 08:58 Oxygen Delivery Method Room Air 07/28/24 08:58 BMI result Body Mass Index 26.0 Const General: no acute distress HEENT Head: Yes normal to inspection Ears: hearing grossly normal bilaterally Eyes General: appearance normal, both eyes and all related structures Neck Neck: Yes no lymphadenopathy and Yes supple Resp Effort & Inspection: normal respiratory effort Auscultation: clear to auscultation bilaterally Cardio Rhythm: regular rhythm Heart sounds: S1 normal heart sound present and S2 normal heart sound present GI Inspection: Yes normal to inspection Palpation (GI): Soft to palpation Percussion: Yes normal to percussion Auscultation: normal bowel sounds Extrem General: Yes no clubbing, cyanosis or edema Assessment & Plan Assessment & Plan (1) Atrial arrhythmia: Comment: f/u Dr. Antonio, Holter frequent PAC's, no A fib, history of hemorrhagic stroke, not on anticoagulation Code(s): I49.8 - Other specified cardiac arrhythmias Plan: Continue diltiazem follow-up with Cardiology (2) COPD (chronic obstructive pulmonary disease): Code(s): J44.9 - Chronic obstructive pulmonary disease, unspecified Plan: Continue Anoro (3) Osteoporosis: Comment: DEXA 2020 SD-3.1 (AP spine), Fosamax since 2021 Code(s): M81.0 - Age-related osteoporosis without current pathological fracture Plan: cont Fosamax and vit D , check DEXA (4) Hypothyroidism: Code(s): E03.9 - Hypothyroidism, unspecified Plan: cont Levothyroxine (5) Annual physical exam: Code(s): Z00.00 - Encounter for general adult medical examination without abnormal findings Plan: Well-balanced diet regular physical activity discussed with the patient follow- up in 6 months Orders: Orders XR DEXA axial skeleton Today F17.200 - Nicotine dependence, unspecified, uncomplicated, M81.0 - Age-related osteoporosis without current pathological fracture Comprehensive [place]. Panel Fast 6 Months E03.9 - Hypothyroidism, unspecified, I4 8.91 - Unspecified atrial fibrillation, J44.9 - Chronic obstructive pulmonary disease, unspecified Complete Blood Count Auto Diff 6 Months E03.9 - Hypothyroidism, unspecified, I48.91 - Unspecified atrial fibrillation, J44.9 - Chronic obstructive pulmonary disease, unspecified Medications: Refilled atorvastatin 40 mg PO BEDTIME 90 tabs 3RF diltiazem HCl CD 120 mg PO DAILY 90 caps 3RF doxazosin 2 mg PO BEDTIME 90 tabs 3RF levothyroxine 75 mcg PO DAILY 90 tabs 3RF umeclidinium-vilanterol 62.5-25 mcg/actuation (Anoro Ellipta) 1 inh inhalation DAILY 60 ea 4RF cholecalciferol (vitamin D3) 50 mcg PO DAILY 90 caps 3RF alendronate (Fosamax) 70 mg PO QWEEK 14 tabs 4RF Quality Reporting (2019) Depression/Bipolar (159/160/161/177) PHQ-9: Total score: 0 Coding Level of Care Code Medicare Subsequent (G0439) Diagnoses Atrial arrhythmia I49.8 COPD (chronic obstructive pulmonary disease) J44.9 Osteoporosis M81.0 Hypothyroidism E03.9 Annual physical exam Z00.00 CPT Codes Advance Care Planning - Advance Care Planning discussion: On file, no changes ([id number]) Advance Care Planning - Time spent: 1-15 minutes, on File ([id number]) Additional Codes PHQ-9 - 39561 - PHQ-9 Billing: Yes ([id number]) Advance Care Planning Advance Care Planning discussion: On file, no changes Forms completed: Health Care Proxy Time spent: 1-15 minutes, on File Did not discuss due to Cultural/Spiritual beliefs: Yes
--- OUTSIDE RECORDS SUMMARY | 2024-07-28 09:19 | XMS_ITS ---
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
--- OUTSIDE RECORDS SUMMARY | 2024-07-28 09:20 | XMS_ITS ---
Author Organization [facility] Address [address] [place] [address] Care Team Providers Care Mechanical Adjuster Name Role Phone Marce Garcia MD Primary Care Provider Butch Meyers [phone] REASON FOR VISIT repeat colonoscopy Encounters Encounter Location Date Provider Diagnosis [facility] [address] [place] [address] 08/14/2023 Butch Zamorano PLAN OF TREATMENT No Information
--- OUTSIDE RECORDS SUMMARY | 2024-07-28 09:20 | XMS_ITS | Patient Health Record ---
Author Organization [facility] Address [address] [place] [address] Care Team Providers Care Or Assistant Name Role Phone Marce Garcia MD Primary Care Provider Butch Meyers Unavailable [phone] ALLERGIES No Known Allergies RESULTS Component Value Reference Range Notes Pathology (Not yet reviewed by provider) Interpretation: Performing Lab:[facility], [address] [place] [id number] Notes/Report: REASON FOR REFERRAL No Information MEDICATIONS [...] screening using Cologuard test (R19.5) Active confirmed 884741852 Problem Diverticulosis of colon (K57.30) Active confirmed Diverticulosi s of colon (538716822) Problem Colon cancer screening (Z12.11) Active confirmed Colon cancer screening (634477961) Problem Colon polyps (K63.5) Active confirmed Polyp of colon (disorder) (70443433) Problem History of adenomatous polyp of colon (Z86.010) Active confirmed 136598645 Problem 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 confirmed 30259162454980 Problem Diverticulosis of large intestine without perforation or abscess without bleeding (K57.30) Active confirmed Diverticul ar disease of colon (274334779) Encounters Encounter Location Date Provider Diagnosis [facility] [address] [place] [phone] 11/06/2023 Butch Zamorano Encounter for screen ing colonoscopy Z12.11 ; Colon polyps K63.5 ; Diverticulosis of large intestine without perforation or abscess without bleeding K57.30 and Other hemorrhoids K64.8 [facility] [address] [place] [address] 08/14/2023 Butch Zamorano ASSESSMENTS Encounter Date Diagnosis Assessment Notes Treatment Notes Treatment Clinical Notes 11/06/2023 Encounter for screening colonoscopy (ICD-10 - Z12.11) 11/06/2023 Colon polyps (ICD-10 - K63.5) 11/06/2023 Diverticulosis of large intestine without perforation or abscess without bleeding (ICD-10 - K57.30) 11/06/2023 Other hemorrhoids (ICD-10 - K64.8) PLAN OF TREATMENT Pending Test Test Name Order Date Pathology 11/06/2023 Future Test Test Name Order Date COLONOSCOPY 11/27/2022 COLONOSCOPY 07/11/2023 Insurance Providers Payer Name Payer Address Payer Phone Subscriber Number Group Number Insured Name Patient Relationship to Insured Coverage Start Date Coverage End Date MEDICARE OF [place] [address] [place] [address] [phone] [id number] DELROY TREJO Self - patient is the insured [employer] ATT[employer] CLAIMS [address] [place] [address] [id number] DELROY TREJO Self - patient is the insured MEDICAL (GENERAL) HISTORY Medical History History ICD Code Hypertension Stroke with a basal ganglia bleed 2020--some memory issues Afib COPD Hypothyroidism Hyperlipidemia Denies OH,DM,CVA,renal disease Pneumonia 07/2023 left side Initial screening colonoscop y in 01/2023, due to a + Cologuard, with removal of multiple large polyps, including a polyp with intramucosal adenocarcinoma but with adequate margins and not needing any surgery. Surgical History Surgery Date(Month/Year) THI Benign breast biopsy Facial lesion removed 2020
--- OUTSIDE RECORDS SUMMARY | 2024-07-28 09:20 | XMS_ITS ---
Author Organization [facility] Address [address] [place] [address] Care Team Providers Care Poleyard Supervisor Name Role Phone Marce Garcia MD Primary Care Provider Butch Meyers [phone] REASON FOR VISIT sc reening,hx polyps,adenocarcinoma in polyp PROBLEMS Problem Type ICD Code Onset Dates Problem Status W/U Status Risk SNOMED Code Notes Problem Diverticulosis of large intestine without perforation or abscess without bleeding (K57.30) Active confirmed Diverticul ar disease of colon (078712399) Encounters Encounter Location Date Provider Diagnosis [facility] [place] Out[place] [address] [place], [place] [id number] 11/06/2023 Butch Zamorano Encounter for scre ening [...]
== END 2024-07-28 09:48 | disposition home or self-care (01) ==
PROVIDERS: PCP Internal Medicine; Visit Provider Internal Medicine
DX: Z00.00 Encounter for general adult medical examination without abnormal findings (principal); I49.8 Other specified cardiac arrhythmias; J44.9 Chronic obstructive pulmonary disease, unspecified; M81.0 Age-related osteoporosis without current pathological fracture; E03.9 Hypothyroidism, unspecified

== ENCOUNTER → 2024-07-28 08:57 | Outpatient (BNVA) | payer MEDICARE, SELFPAY | PROVIDERS: PCP Internal Medicine; Visit Provider Internal Medicine | DX: Z00.00 Encounter for general adult medical examination without abnormal findings (principal); I49.8 Other specified cardiac arrhythmias; J44.9 Chronic obstructive pulmonary disease, unspecified; M81.0 Age-related osteoporosis without current pathological fracture; E03.9 Hypothyroidism, unspecified; I48.91 Unspecified atrial fibrillation; F17.210 Nicotine dependence, cigarettes, uncomplicated | CPT/HCPCS: 96127 ==

== ENCOUNTER 2024-07-30 14:32 | Outpatient (AMB) | payer MEDICARE, SELFPAY ==
--- NOTE | 2024-07-30 14:36 | A.OFFVIS_ITS ---
Vital Signs 07/30/24 14:38 Height 5 ft 5 in Weight 154 lb 5.177 oz BMI 25.7 BP 116/74 Blood Pressure Location Lt brachial Position Sitting Pulse 66 Intake Visit Reasons: 1 year follow up Intake Note: 1 year follow-up with ekg feeling good Bulk Fluids Handler Required: No Allergies No Known Allergies [No Known Allergies*] Allergy (Unknown, Verified 07/28/24 09:00) Medication List - Last Reconciled 07/30/24 by Chance Antonio MD albuterol sulfate 90 mcg/actuation 2 puffs inhalation Q6H PRN alendronate (Fosamax) 70 mg PO QWEEK atorvastatin 40 mg PO BEDTIME cholecalciferol (vitamin D3) 50 mcg PO DAILY diltiazem HCl CD 120 mg PO DAILY doxazosin 2 mg PO BEDTIME levothyroxine 75 mcg PO DAILY umeclidinium-vilanterol 62.5-25 mcg/actuation (Anoro Ellipta) 1 inh inhalation DAILY HPI Comments Details: Mo comes for follow-up. She has been doing well. She denies any symptoms of chest pain or shortness of breath with exertion. Had stopped smoking. Denies any prolonged palpitation irregular heartbeat. She was not notice any symptoms that would suggest atrial fibrillation. Denies any lightheadedness, syncope. Takes all her medications. [facility] Medical History A-fib CVA (cerebrovascular accident due to intracerebral hemorrhage) Breast mass Hypothyroidism Hyperlipidemia HTN (hypertension) Skin growth Tobacco dependence Postmenopausal Annual physical exam PVD (peripheral vascular disease) COPD (chronic obstructive pulmonary disease) Pneumonia Surgical History H/O: hysterectomy Family History Mother Heart problem Father Adenocarcinoma Substance use disorder Sister Myocardial infarct Social History Household Members: Family Household Members Other:: Lives with sister, never , walks daily Housing: House Alcohol intake: never Patient Tobacco Use Status: Former Tobacco user e-Cigarette/Vaping Use: Never Used service: No Current occupational status: retired Cognitive needs: No Hearing needs: No Vision needs: No Review of Systems Const Denies chills, Denies fatigue, Denies fever(s), Denies frequent falls, Denies weakness, Denies weight gain and Denies weight loss ENT Denies dizziness Card Denies chest pain, Denies leg edema, Denies lightheadedness, Denies palpitations, Denies dyspnea, Denies dyspnea on exertion, Denies orthopnea and Denies other (loss of consciousness) Resp Denies cough, Denies dyspnea and Denies dyspnea on exertion GI Denies hematochezia and Denies change in stool character Musc Denies abnormal gait, Denies muscle weakness, Denies numbness, Denies radiating pain into limb and Denies tingling Neuro Denies abnormal gait, Denies dizziness, Denies frequent falls, Denies numbness, Denies tingling and Denies weakness Endo Denies fatigue and Denies palpitations Physical Exam Vital Signs: Last Vital Signs Pulse 66 07/30/24 14:38 BP 116/74 07/30/24 14:38 BMI result Body Mass Index 25.7 Const General: cooperative, comfortable, no acute distress, alert and awake Nutritional Appearance: average body habitus Orientation/consciousness: patient oriented x3 Limitations: no limitations HEENT Head: Yes normocephalic and Yes atraumatic Neck Neck: Yes trachea midline, Yes supple and Yes no JVD Chest Chest palpation & inspection: normal inspection of the chest Resp Effort & Inspection: normal respiratory effort Auscultation: clear to auscultation bilaterally and diminished lung sounds Cardio Jugular venous distension: no JVD Palpation: normal PMI Rate: regular rate Rhythm: abnormal rhythm with ectopic beats Heart sounds: S1 normal heart sound present, S2 normal heart sound present, no click, no gallops and no murmurs GI Auscultation: normal bowel sounds Skin General skin exam: no rashes or lesions noted Neuro General: patient oriented x3 and no focal motor deficits Extrem General: Yes no clubbing, cyanosis or edema Office Procedures EKG Details: EKG shows normal sinus rhythm with PACs with nonspecific ST T wave changes with leftward axis [address]5417-[id number], Complete Assessment & Plan Assessment & Plan (1) Atrial arrhythmia: Comment: f/u Dr. Antonio, Holter frequent PAC's, no A fib, history of hemorrhagic stroke, not on anticoagulation Code(s): I49.8 - Other specified cardiac arrhythmias Category: Medical Plan: Frequent atrial arrhythmias mostly PACs and short runs with atrial tachycardia without any sustained episodes of atrial fibrillation. Clinically no evidence of atrial fibrillation at this point time. Continue monitor. We discussed about potential ways of monitoring at home including portable EKG device of her own. She understands agrees. Meanwhile continue Cardizem therapy. Continue avoid stimulants such as caffeine and alcohol. If she has any recurrent symptoms of prolonged irregular heartbeat advised to seek emergency care said that we can obtain EKG. If she has any episodes of atrial fibrillation will require long-term oral anticoagulation therapy. Without that will pursue clinical observation. (2) HTN (hypertension): Code(s): I10 - Essential (primary) hypertension Category: Medical Plan: Hypertension which is currently well optimized advised to monitor blood pressure at home maintain a log. Goal blood pressure less than 130/84. Low-salt diet was discussed. Continue statin therapy with target goal LDL less than 100 mg/dL. Will follow up in the clinic in 1 year's time, sooner p.r.n.. Thank you for allowing me to partake in his care Coding Level of Care Code Est Pt Level 4 (04533) Complex EM visit Add On G2211 Diagnoses Atrial arrhythmia I49.8 HTN (hypertension) I10 CPT Codes EKG - CPT: 91065-Tqxuagmqcjdvvwyhc, Complete ([id number])
[2024-07-30 14:38] VITALS: BP 116/74; PULSE 66; BMI 25.7
--- OUTSIDE RECORDS SUMMARY | 2024-07-30 18:29 | XMS_ITS ---
Author Organization [facility] Address [address] [place] [address] Care Team Providers Care Cordage Sales Representative Name Role Phone Marce Garcia MD Primary Care Provider Butch Meyers [phone] REASON FOR VISIT sc reening,hx polyps,adenocarcinoma in polyp PROBLEMS Problem Type ICD Code Onset Dates Problem Status W/U Status Risk SNOMED Code Notes Problem Diverticulosis of large intestine without perforation or abscess without bleeding (K57.30) Active confirmed Diverticul ar disease of colon (819107171) Encounters Encounter Location Date Provider Diagnosis [facility] [place] [address] [place], [place] [id number] 11/06/2023 Butch Zamorano Encounter for scre ening [...]
--- OUTSIDE RECORDS SUMMARY | 2024-07-30 18:29 | XMS_ITS ---
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
--- OUTSIDE RECORDS SUMMARY | 2024-07-30 18:29 | XMS_ITS ---
Author Organization [facility] Address [address] [place] [address] Care Team Providers Care Rope Maker Name Role Phone Marce Garcia MD Primary Care Provider Butch Meyers [phone] REASON FOR VISIT repeat colonoscopy Encounters Encounter Location Date Provider Diagnosis [facility] [address] [place] [address] 08/14/2023 Butch Zamorano PLAN OF TREATMENT No Information
--- OUTSIDE RECORDS SUMMARY | 2024-07-30 18:29 | XMS_ITS | Patient Health Record ---
Author Organization [facility] Address [address] [place] [address] Care Team Providers Care Media Production Manager Name Role Phone Marce Garcia MD Primary Care Provider Butch Meyers Unavailable [phone] ALLERGIES No Known Allergies RESULTS Component Value Reference Range Notes Pathology (Not yet reviewed by provider) Interpretation: Performing Lab:[facility], [address] [place] [phone] Notes/Report: REASON FOR REFERRAL No Information MEDICATIONS [...] screening using Cologuard test (R19.5) Active confirmed 380166093 Problem Diverticulosis of colon (K57.30) Active confirmed Diverticulosi s of colon (956489585) Problem Colon cancer screening (Z12.11) Active confirmed Colon cancer screening (519277337) Problem Colon polyps (K63.5) Active confirmed Polyp of colon (disorder) (52455632) Problem History of adenomatous polyp of colon (Z86.010) Active confirmed 076802289 Problem 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 confirmed 75333402289399 Problem Diverticulosis of large intestine without perforation or abscess without bleeding (K57.30) Active confirmed Diverticul ar disease of colon (806192570) Encounters Encounter Location Date Provider Diagnosis [facility] [place] [address] [place] [id number] 11/06/2023 Butch Zamorano Encounter for screen ing colonoscopy Z12.11 ; Colon polyps K63.5 ; Diverticulosis of large intestine without perforation or abscess without bleeding K57.30 and Other hemorrhoids K64.8 [facility] [address] [place] [address] 08/14/2023 Butch Zamorano ASSESSMENTS Encounter Date Diagnosis [...] Date MED[place]ARE OF [place] [address] [facility] [address] [id number] DELROY TREJO Self - patient is the insured [employer] ATT[employer] CLAIMS [address] [place] [address] [id number] DELROY TREJO Self - patient is the [...]
== END 2024-07-30 14:59 | disposition home or self-care (01) ==
PROVIDERS: PCP Internal Medicine; Visit Provider Internal Medicine Cardiovascular Disease
DX: I49.8 Other specified cardiac arrhythmias (principal); I10 Essential (primary) hypertension
CPT/HCPCS: 93010; 99214; G2211

== ENCOUNTER → 2024-07-30 14:32 | Outpatient (BNVA) | payer MEDICARE, SELFPAY | PROVIDERS: PCP Internal Medicine; Visit Provider Internal Medicine Cardiovascular Disease | DX: I49.8 Other specified cardiac arrhythmias (principal); I10 Essential (primary) hypertension | CPT/HCPCS: 93005; 99212 ==

== ENCOUNTER 2024-08-26 08:03 | Outpatient (REF) | payer MEDICARE, SELFPAY ==
--- NOTE | ~2024-08-26 | MM_ITS ---
EXAMINATION: MM SCREENING DIGITAL BREAST TOMOSYNTHESIS, BILATERAL CLINICAL INFORMATION: Screening. Asymptomatic. COMPARISON: Mammography: Comparison is made with available priors TECHNIQUE: Digital breast mammography with tomosynthesis is performed in both the craniocaudal and mediolateral oblique views along with computer-aided detection (CAD). FINDINGS: There are scattered areas of fibroglandular density (ACR BI-RADS breast composition Category b). There are no significant masses, abnormal calcifications, or other abnormalities. MM/MM tomosynthesis screening BI IMPRESSION: No mammographic evidence of malignancy. ASSESSMENT: BI-RADS BI-RADS 1 - Negative RECOMMENDATION: Routine annual mammography screening. 1 year F/U This examination should not preclude the clinical evaluation of a suspicious palpable abnormality. This patient's information was entered into a reminder system with a target due date for their next mammogram. Electronically signed by: Kenia Hickey DO 08/30/2024 04:30 PM WONG
--- NOTE | ~2024-08-26 | MM_ITS ---
EXAMINATION: DXA BONE DENSITY AXIAL HISTORY: Estrogen deficiency TECHNIQUE: [employer] Dual energy absorptiometry (DEXA) of the lumbar spine, total left hip, and femoral neck was performed. COMPARISON: Comparison is made with the prior examination dated 09/30/2020. FINDINGS: The bone mineral density of the lumbar spine is 0.860 with a T-score of -2.7, and a Z-score of -1.1. This represents a BMD change of 6.0% compared to the prior exam. This is statistically significant. The bone mineral density of the left total hip is 0.747 with a T-score of -2.1, and a Z-score of -0.4. This represents BMD change of 0.8% compared to the prior exam. This is not statistically significant. The bone mineral density of the left femoral neck is 0.774 with a T-score of -1.9, and a Z-score of 0.0. This represents BMD change of 0.0% compared to the prior exam. MM/XR DEXA axial skeleton IMPRESSION: Based on bone mineral density, and according to World Health Organization (WHO) criteria, the diagnosis is consistent with osteoporosis. All bone density values are in grams per centimeter squared (g/cm2). Statistically, 68% of repeat scans fall within 1 SD (+/- 0.010 g/cm2 for AP spine L1-L4) and 1 SD (+/- 0.012 g/cm2 for femur total) FRAX is a trademark of the [employer]'s [place] [employer] Disease, a World Health Organization (WHO) Collaborating Center. Electronically signed by: Butch Grande MD 08/26/2024 09:10 AM [facility] [place]
--- OUTSIDE RECORDS SUMMARY | 2024-08-26 08:14 | XMS_ITS ---
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
--- OUTSIDE RECORDS SUMMARY | 2024-08-26 08:14 | XMS_ITS | Patient Health Record ---
Author Organization [facility] Address [address] [place] [address] Care Team Providers Care Relay Repairer Name Role Phone Marce Garcia MD Primary Care Provider Butch Meyers Unavailable [phone] ALLERGIES No Known Allergies RESULTS Component Value Reference Range Notes Pathology (Not yet reviewed by provider) Interpretation: Performing Lab:[facility], [address] [place] [phone] Notes/Report: REASON FOR REFERRAL No Information MEDICATIONS [...] screening (Z12.11) Active confirmed Colon cancer screening (267523290) Problem History of adenomatous polyp of colon (Z86.010) Active confirmed 481202534 Problem Diverticulosis of large intestine without perforation or abscess without bleeding (K57.30) Active confirmed Diverticul ar disease of colon (306824227) Problem Colon polyps (K63.5) Active confirmed Polyp of colon (disorder) (07175745) Problem Diverticulosis of colon (K57.30) Active confirmed Diverticulosi s of colon (169891142) Problem Positive colorectal cancer screening using Cologuard test (R19.5) Active confirmed 407541547 Problem 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 confirmed 07074684923150 Encounters Encounter Location Date Provider Diagnosis [facility] [place] [address] [place] [phone] 11/06/2023 Butch Zamorano Encounter for scre ening [...] Coverage End Date MED[place]ARE OF [place] [address] [id number] DELROY TREJO Self - patient is the insured [employer] ATT[employer] CLAIMS [address] [place] [address] [phone] [id number] DELROY TREJO Self - patient is the insured MEDICAL (GENERAL) HISTORY Medical History History ICD Code Hypertension Stroke with a basal ganglia bleed 2020--some memory issues Afib COPD Hypothyroidism Hyperlipidemia Denies AK,DM,CVA,renal disease Pneumonia 07/2023 left side Initial screening colonoscop y in 01/2023, due to a + Cologuard, with removal of multiple large polyps, including a polyp with intramucosal adenocarcinoma but with adequate margins and not needing any surgery. Surgical History Surgery Date(Month/Year) THI Benign breast biopsy Facial lesion removed 2020
--- OUTSIDE RECORDS SUMMARY | 2024-08-26 08:15 | XMS_ITS ---
Author Organization [facility] Address [address] [place] [address] Care Team Providers Care Freezer Assistant Name Role Phone Marce Garcia MD Primary Care Provider Butch Meyers [phone] REASON FOR VISIT sc reening,hx polyps,adenocarcinoma in polyp PROBLEMS Problem Type ICD Code Onset Dates Problem Status W/U Status Risk SNOMED Code Notes Problem Diverticulosis of large intestine without perforation or abscess without bleeding (K57.30) Active confirmed Diverticul ar disease of colon (524516712) Encounters Encounter Location Date Provider Diagnosis [facility] [place] [address] [place], [place] [phone] 11/06/2023 Butch Zamorano Encounter for scre ening [...]
--- OUTSIDE RECORDS SUMMARY | 2024-08-26 08:15 | XMS_ITS ---
Author Organization [facility] Address [address] [place] [address] Care Team Providers Care Electrician Shop Name Role Phone Marce Garcia MD Primary Care Provider Butch Meyers [phone] REASON FOR VISIT repeat colonoscopy Encounters Encounter Location Date Provider Diagnosis [facility] [address] [place] [address] 08/14/2023 Butch Zamorano PLAN OF TREATMENT No Information
== END 2024-08-26 08:04 | disposition home or self-care (01) ==
LOC: HO.MAMMO 08:03
PROVIDERS: PCP Internal Medicine; Visit Provider Internal Medicine
DX: M81.0 Age-related osteoporosis without current pathological fracture (principal); F17.200 Nicotine dependence, unspecified, uncomplicated; Z12.31 Encounter for screening mammogram for malignant neoplasm of breast
CPT/HCPCS: 77063; 77067; 77080

== ENCOUNTER → 2024-08-26 08:15 | Outpatient (BNV) | payer MEDICARE, SELFPAY | PROVIDERS: PCP Internal Medicine; Visit Provider Radiology Diagnostic Radiology | DX: Z12.31 Encounter for screening mammogram for malignant neoplasm of breast (principal) | CPT/HCPCS: 77063; 77067 ==

== ENCOUNTER 2025-01-20 09:34 | Outpatient (REF) | payer MEDICARE, SELFPAY ==
--- OUTSIDE RECORDS SUMMARY | 2025-01-20 10:05 | XMS_ITS | Patient Health Record ---
Author Organization [facility] Address [address] [place] [address] Care Team Providers Care Landscape Crew Member Name Role Phone Marce Garcia MD Primary Care Provider Butch Meyers Unavailable [phone] Allergies No Known Allergies Reason For Referral No Information Medications Medication SIG (Take, Route, Frequency, Duration) Notes [...] Ellipta 62.5-25 MCG/ACT Inhalation for 30 Active Immunizations Vaccine Route Administration Date Status Comme nts Influenza Unknown 11/27/2022 Pending Social History Tobacco Use: Social History Observation Description Date Details (start date - stop date) Never Smoker NA - NA Tobacco Use/Smoking Question Answer Notes Patient is [...] Never (0 point) Points 0 Interpretation Negative Section Notes: Nonsmoker; no significant al cohol Nonsmoker; no significant al cohol Problems Problem Type SNOMED Code ICD Code Onset Dates Problem Status W/U Status Risk Notes Problem Colon cancer screening (715444127) Colon cancer screening (Z12.11) Active confirmed Problem 951323389 History of adenomatous polyp of colon (Z86.010) Active confirmed Problem Diverticulosis o f large intestine without perforation or abscess without bleeding (K57.30) Active confirmed Problem Polyp of colon (disorder) (40977531) Colon polyps (K63.5) Active confirmed Problem Diverticulosis of colon (523332851) Diverticulosis of colon (K57.30) Active confirmed Problem 673316846 Positive colorectal cancer screening using Cologuard test (R19.5) Active confirmed Problem 63866223141380 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 Plan Of Treatment Future Test Test Name Order Date COLONOSCOPY 11/27/2022 COLONOSCOPY 07/11/2023 Insurance Providers Payer Name Payer Address Payer Phone Subscriber Number Group Number Insured Name Patient Relationship to Insured Coverage Start Date Coverage End Date MEDICARE OF [place] [address] [place] [address] [id number] DELROY TREJO Self - patient is the insured MED[employer] ATTN CLAIMS [address] [place] [address] [id number] DELROY TREJO Self - patient is the insured Medical (General) History Medical History History ICD Code Hypertension Stroke with a basal ganglia bleed 2020--some memory issues Afib COPD Hypothyroidism Hyperlipidemia Denies NM,DM,CVA,renal disease Pneumonia 07/2023 left side Initial screening colonoscop y in 01/2023, due to a + Cologuard, with removal of multiple large polyps, including a polyp with intramucosal adenocarcinoma but with adequate margins and not needing any surgery. Surgical History Surgery Date(Month/Year) THI Benign breast biopsy Facial lesion removed 2020
[2025-01-20 13:10] LABS: MANUAL DIFF FLAG NO
[2025-01-20 13:38] LABS: Hematocrit 41.3 % (37.0-47.0); Hemoglobin 13.5 g/dl (12.0-16.0); Imm Gran Abs Auto 0.01 X10*3/uL (0.00-0.03); Imm Gran Pct Auto 0.2 % (0.0-0.4); Lymphocytes Absolute Auto 1.6 X10*3/uL (1.2-4.9); Mean Corpuscular HGB Conc 32.7 g/dl (31.0-35.0); Mean Corpuscular Hemoglobin 30.1 pg (27.0-33.0); Mean Corpuscular Volume 92.0 fL (80.0-98.0); NRBC Abs Auto 0.000 X10*3/uL (0.0-0.012); NRBC Pct Auto 0.0 /100WBC (0.0-0.2); Platelet Count 273 X10*3/uL (160-400); Red Blood Count 4.49 X10*6/uL (4.20-5.50); White Blood Count 5.5 X10*3/uL (4.8-10.8)
[2025-01-20 13:56] LABS: Alanine Aminotransferase 16 U/L (0-31); Albumin Level 4.0 g/dL (3.5-5.0); Alkaline Phosphatase 82 U/L (39-117); Anion Gap 10 (12-20); Aspartate Amino Transferase 32 U/L (5-31); Blood Urea Nitrogen 15 mg/dL (9-16); Calcium 9.0 mg/dL (8.4-10.2); Carbon Dioxide 26 mmol/L (22-29); Chloride 109 mmol/L (96-108); Estimated Glomerular Filt Rate > 60; Potassium 3.7 mmol/L (3.3-5.1); Sodium 141 mmol/L (135-145); Total Protein 6.6 g/dL (6.5-8.0)
== END 2025-01-20 09:35 | disposition home or self-care (01) ==
LOC: HO.HMGCLDS 09:34
PROVIDERS: PCP Internal Medicine; Visit Provider Internal Medicine
DX: I48.91 Unspecified atrial fibrillation (principal); J44.9 Chronic obstructive pulmonary disease, unspecified; E03.9 Hypothyroidism, unspecified
CPT/HCPCS: 36415; 80053; 85025

== ENCOUNTER 2025-01-21 09:15 | Outpatient (AMB) | payer MEDICARE, SELFPAY ==
[2025-01-21 09:42] VITALS: BP 130/86; PULSE 67; RESP 18; TEMP 36.5; O2SAT 95; BMI 25.1
--- NOTE | 2025-01-21 09:42 | A.OFFPC_ITS ---
Vital Signs 01/21/25 09:42 Height 5 ft 5 in Weight 151 lb BMI 25.1 BP 130/86 Blood Pressure Location Lt brachial Position Sitting Respiration 18 Pulse 67 Pulse Source Pulse Oximeter Temp 97.7 F Temp Source Oral Pulse Oximetry (%) 95 Oxygen Delivery Method Room Air Intake Visit Reasons: 6m follow up Intake Note: Pt is here today for 6 months follow up visit. Allergies No Known Allergies (No Known Allergies*) Allergy (Unknown, Verified 01/21/25 09:44) Medication List - Last Reconciled 01/21/25 by Marce Garcia MD albuterol sulfate 90 mcg/actuation 2 puffs inhalation Q6H PRN alendronate (Fosamax) 70 mg PO QWEEK atorvastatin 40 mg PO BEDTIME cholecalciferol (vitamin D3) 50 mcg PO DAILY diltiazem HCl CD 120 mg PO DAILY doxazosin 2 mg PO BEDTIME levothyroxine 75 mcg PO DAILY umeclidinium-vilanterol 62.5-25 mcg/actuation (Anoro Ellipta) 1 inh inhalation DAILY Tobacco use date assessed: 01/21/25 Fall risk assessment: No Falls in past year Last assessed Fall Risk: 01/21/25 Dental Screening Dental Screen Date: 01/21/25 Did you have a dental visit in the last 12 months?: Yes Did you have a dental problem in the last 6 months where you did not have access to dental care?: No Was dental information given to patient?: Patient has dentist HPI 6m follow up HPI Details Patient presents for the follow-up on hypertension hyperlipidemia COPD stable on current medications PFSH Medical History (Updated 01/21/25 @ 15:14 by Marce Garcia MD) Colon polyps Osteoporosis A-fib CVA (cerebrovascular accident due to intracerebral hemorrhage) Breast mass Hypothyroidism Hyperlipidemia HTN (hypertension) Skin growth Tobacco dependence Postmenopausal Annual physical exam PVD (peripheral vascular disease) COPD (chronic obstructive pulmonary disease) Pneumonia Surgical History H/O: hysterectomy Family History Mother Heart problem Father Adenocarcinoma Substance use disorder Sister Myocardial infarct Social History Household Members: Family Household Members Other:: Lives with sister, never , walks daily Housing: House Alcohol intake: never Patient Tobacco Use Status: Former Tobacco user e-Cigarette/Vaping Use: Never Used service: No Current occupational status: retired Cognitive needs: No Hearing needs: No Vision needs: No Questionnaire Thrive Questionnaire Date Thrive assessed: 01/21/25 I am a: Patient What is your living situation today?: I have a steady place to live Within the past 12 months, did the food you bought not last and you didn't have the money to get more?: Never true Within the past 12 months, did you worry whether your food would run out before you got money to buy more?: Never true Do you have trouble paying for medicines?: No Do you have trouble getting transportation to medical appointments?: No Do you have trouble paying your heating and electricity bill?: No Do you have trouble taking care of your child, family member or friend?: No Do you have trouble with day-to-day activities such as bathing, preparing meals, shopping, managing finances, etc.?: No Are you currently unemployed and looking for a job?: No Are you interested in more education?: I choose not to answer this question Please select the resources that you would like help with: None Currently or been in a relationship where the following occur: No concerns reported THRIVE Score: 0 AUDIT C Alcohol Use Questionnaire (AUDIT-C) 1. How often do you have a drink containing alcohol?: Never 3. How often do you have six or more drinks on one occasion?: Never Total Score: 0 TALA-7 AMB Questionnaire TALA-7 Date TALA - 7 assessed: 01/21/25 Feeling nervous, anxious, or on edge: 0 = Not at all Not being able to stop or control worryin = Not at all Worrying too much about different things: 0 = Not at all Trouble relaxin = Not at all Being so restless that it is hard to sit still: 0 = Not at all Becoming easily annoyed or irritable: 0 = Not at all Feeling afraid as if something awful might happen: 0 = Not at all Total TALA-7 score (0-4 normal; 5-9 mild; 10-14 moderate; 15-21 severe): 0 Source: Developed by Drs. Butch Damian, Sharon Betancur, Sam Payton and colleagues, with an educational radha from [employer]. TALA-7 Assessment Billing TALA-7 Assessment Tool: TALA-7 Assessment 58511 Review of Systems Const All systems reviewed & are unremarkable except as noted in HPI and below Eyes Reports no additional complaints ENT Reports no additional complaints Card Reports no additional complaints Resp Reports no additional complaints GI Reports no additional complaints Physical exam (Primary Care) Vital Signs: Last Vital Signs Temp 97.7 F 01/21/25 09:42 Pulse 67 01/21/25 09:42 Resp 18 01/21/25 09:42 BP 130/86 01/21/25 09:42 Pulse Ox 95 01/21/25 09:42 Oxygen Delivery Method Room Air 01/21/25 09:42 BMI result Body Mass Index 25.1 Tobacco/Smoking Status: Tobacco use Status Tobacco use date assessed 01/21/25 01/21/25 09:48 Patient Tobacco Use Status Former Tobacco user 01/21/25 09:48 e-Cigarette/Vaping Use Never Used 01/21/25 09:48 Thrive Assessment: Date of Thrive Assessment Date Thrive assessed 01/21/25 01/21/25 09:48 Currently or been in a relationship where the following occur: No concerns reported Const General: no acute distress HENMT Head: Yes normal to inspection Face and sinus: Yes normal facial exam Eyes General: appearance normal, both eyes and all related structures Neck Neck: Yes supple Resp Effort & Inspection: normal respiratory effort Auscultation: clear to auscultation bilaterally Cardio Rhythm: regular rhythm Heart sounds: S1 normal heart sound present and S2 normal heart sound present GI Inspection: Yes normal to inspection Palpation (GI): Soft to palpation Percussion: Yes normal to percussion Auscultation: normal bowel sounds Coding Level of Care Code Est Pt Level 4 (43293) Complex EM visit Add On G2211 Diagnoses COPD (chronic obstructive pulmonary disease) J44.9 HTN (hypertension) I10 A-fib I48.91 Vitamin D deficiency E55.9 Hypothyroidism E03.9 CVA (cerebrovascular accident due to intracerebral hemorrhage) I61.9 Osteoporosis M81.0 Colon polyps K63.5 Additional Codes TALA-7 Assessment Billing - TALA-7 Assessment Tool: TALA-7 Assessment 31821 ([id number]) Assessment & Plan Assessment & Plan (1) COPD (chronic obstructive pulmonary disease): Code(s): J44.9 - Chronic obstructive pulmonary disease, unspecified Category: Medical Plan: Continue Anoro (2) HTN (hypertension): Code(s): I10 - Essential (primary) hypertension Category: Medical Plan: Continue current medications (3) A-fib: Comment: one episode 11/19 during hospitalization for COPD, not on anticoagulation due to hemorrhagic CVA, ESTABLISHED WITH CARDIOLOGY Dr. Antonio Code(s): I48.91 - Unspecified atrial fibrillation Category: Medical Plan: On diltiazem for nonsustained atrial tachycardia, follow-up with cardiology (4) Vitamin D deficiency: Code(s): E55.9 - Vitamin D deficiency, unspecified Category: Medical Plan: Continue vitamin-D (5) Hypothyroidism: Code(s): E03.9 - Hypothyroidism, unspecified Category: Medical Plan: Continue levothyroxine (6) CVA (cerebrovascular accident due to intracerebral hemorrhage): Comment: L thalamic 3 cm with intraventricular extension 06/20, f/u [facility] Code(s): I61.9 - Nontraumatic intracerebral hemorrhage, unspecified Category: Medical Plan: Established with Neurology (7) Osteoporosis: Comment: DEXA 2020 SD-3.1 (AP spine), Fosamax since 2021, DEXA 08/2024 T score -2.7, 6% improvement, cont Fosamax, recheck in 2 yrs Code(s): M81.0 - Age-related osteoporosis without current pathological fracture Category: Medical Plan: Continue Fosamax vitamin-D and weight-bearing exercises repeat DEXA in 2 years (8) Colon polyps: Comment: 6 polyps, 2 TA, Dr. Zamorano, repeat in 1 yr recommended Code(s): K63.5 - Polyp of colon Category: Medical Plan: Follow-up GI for repeat colonoscopy Orders: Orders Comprehensive [place]. Panel Fast 6 Months E55.9 - Vitamin D deficiency, unspe cified, I10 - Essential (primary) hypertension, I48.91 - Unspecified atrial fibrillation, J44.9 - Chronic obstructive pulmonary disease, unspecified Complete Blood Count Auto Diff 6 Months E55.9 - Vitamin D deficiency, unspecified, I10 - Essential (primary) hypertension, I48.91 - Unspecified atrial fibrillation, J44.9 - Chronic obstructive pulmonary disease, unspecified Lipid Panel 6 Months E55.9 - Vitamin D deficiency, unspecified, I10 - Essential (primary) hypertension, I48.91 - Unspecified atrial fibrillation, J44.9 - Chronic obstructive pulmonary disease, unspecified TSH reflex Free T4 6 Months E55.9 - Vitamin D deficiency, unspecified, I10 - Essential (primary) hypertension, I48.91 - Unspecified atrial fibrillation, J44.9 - Chronic obstructive pulmonary disease, unspecified Vitamin D 25-OH Total 6 Months E55.9 - Vitamin D deficiency, unspecified Referrals Gastroenterology Referral K63.5 - Polyp of colon Medications: Refilled alendronate (Fosamax) 70 mg PO QWEEK 14 tabs 4RF doxazosin 2 mg PO BEDTIME 90 tabs 3RF atorvastatin 40 mg PO BEDTIME 90 tabs 3RF diltiazem HCl CD 120 mg PO DAILY 90 caps 3RF levothyroxine 75 mcg PO DAILY 90 tabs 3RF
--- OUTSIDE RECORDS SUMMARY | 2025-01-21 09:47 | XMS_ITS | Patient Health Record ---
Author Organization [facility] Address [address] [place] [address] Care Team Providers Care Supervisor Slitting [employer] Name Role Phone Marce Garcia MD Primary Care Provider Butch Meyers Unavailable [phone] Allergies No Known Allergies Reason For Referral [...] Status Risk Notes Problem Colon cancer screening (725173514) Colon cancer screening (Z12.11) Active confirmed Problem 985257485 History of adenomatous polyp of colon (Z86.010) Active confirmed Problem Diverticulosis o f large intestine without perforation or abscess without bleeding (K57.30) Active confirmed Problem Polyp of colon (disorder) (24648357) Colon polyps (K63.5) Active confirmed Problem Diverticulosis of colon (138050020) Diverticulosis of colon (K57.30) Active confirmed Problem 746688616 Positive colorectal cancer screening using Cologuard test (R19.5) Active confirmed Problem [id number] 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 Plan Of Treatment Future Test Test Name Order Date COLONOSCOPY 11/27/2022 COLONOSCOPY 07/11/2023 Insurance Providers Payer Name Payer Address Payer Phone Subscriber Number Group Number Insured Name Patient Relationship to Insured Coverage Start Date Coverage End Date MEDICARE OF [place] [address] [place] [address] [id number] DELROY TREJO Self - patient is the insured MED[employer] ATTN CLAIMS [address] [place] [address] [id number] DELROY TREJO Self - patient is the insured Medical (General) History Medical History History ICD Code Hypertension Stroke with a basal ganglia bleed 2020--some memory issues Afib COPD Hypothyroidism Hyperlipidemia Denies ID,DM,CVA,renal disease Pneumonia 07/2023 left side Initial screening colonoscop y in 01/2023, due to a + Cologuard, with removal of multiple large polyps, including a polyp with intramucosal adenocarcinoma but with adequate margins and not needing any surgery. Surgical History Surgery Date(Month/Year) THI Benign breast biopsy Facial lesion removed 2020
== END 2025-01-21 10:26 | disposition home or self-care (01) ==
LOC: HO.HMCC 09:16
PROVIDERS: PCP Internal Medicine; Visit Provider Internal Medicine
DX: J44.9 Chronic obstructive pulmonary disease, unspecified (principal); I48.91 Unspecified atrial fibrillation; I61.9 Nontraumatic intracerebral hemorrhage, unspecified; I10 Essential (primary) hypertension; E55.9 Vitamin D deficiency, unspecified; E03.9 Hypothyroidism, unspecified; M81.0 Age-related osteoporosis without current pathological fracture; K63.5 Polyp of colon

== ENCOUNTER → 2025-01-21 09:15 | Outpatient (BNVA) | payer MEDICARE, SELFPAY | PROVIDERS: PCP Internal Medicine; Visit Provider Internal Medicine | DX: J44.9 Chronic obstructive pulmonary disease, unspecified (principal); I10 Essential (primary) hypertension; I48.91 Unspecified atrial fibrillation; E55.9 Vitamin D deficiency, unspecified; E03.9 Hypothyroidism, unspecified; I61.9 Nontraumatic intracerebral hemorrhage, unspecified; M81.0 Age-related osteoporosis without current pathological fracture; K63.5 Polyp of colon | CPT/HCPCS: 96127; 99212 ==